=== PATIENT | female | born 1955 | race Caucasian/White ===

== ENCOUNTER 2016-12-16 19:35 | Emergency (ER) | payer BC ==
[2016-12-16 21:49] LABS: Hematocrit 35 % (35-47); Hemoglobin 11.6 g/dl (12.0-16.0); Mean Corpuscular HGB Conc 33 g/dl (31-36); Mean Corpuscular Hemoglobin 29 pg (27-31); Mean Corpuscular Volume 87 fL (80-97); Mean Platelet Volume 9 um3 (7.4-10.4); Red Blood Count 4.01 10^6/ul (4.0-5.4); Red Cell Distribution Width 15 % (10.5-15); White Blood Count 8.5 10^3/ul (3.5-10.8)
[2016-12-16 21:59] LABS: Albumin 4.6 g/dL (3.2-5.2); BUN/Creatinine Ratio 21.6 (8-20); C Reactive Protein 3.97 mg/L (< 5.00); EGFR African American 74.8 (>60); EGFR Non-African American 58.2 (>60); Globulin 2.9 g/dL (2-4); Potassium 3.8 mmol/L (3.5-5.0); Total Protein 7.5 g/dL (6.4-8.9)
[2016-12-16] MEDS ORDERED: Ondansetron INJ* 2 MG/ML VIAL ONE (22:20)
[2016-12-16] MEDS ORDERED: Ondansetron INJ* 2 MG/ML VIAL IV ONE ×2 (22:23→22:24)
[2016-12-16] MEDS ORDERED: NS 0.9% 1000 ML* 2,000 ML IV ONE (22:23)
[2016-12-16] MEDS ORDERED: NS 0.9% 1000 ML* 1,000 ML IV ONE (22:25)
[2016-12-16] MEDS ORDERED: Iodixanol* (CONTRAST) 320 MG/ML 100 ML SDV IV ONE (22:50)
[2016-12-16] MEDS ORDERED: Metoclopramide IV* 5 MG/ML 2 ML VIAL ONE (23:38)
[2016-12-16] MEDS ORDERED: Metoclopramide IV* 5 MG/ML 2 ML VIAL IV ONE (23:39)
[2016-12-16 23:57] LABS: Troponin I 0.01 ng/mL (<0.04)
[2016-12-17 00:03] LABS: Urine Bilirubin Negative (Negative); Urine Glucose 3+(>=500 mg/dL) (Negative); Urine Nitrite Negative (Negative)
[2016-12-17] MEDS ORDERED: NS 0.9% 1000 ML* 1,000 ML IV ONE ×2 (01:51→01:52)
[2016-12-17 03:07] VITALS: BP 117/36
--- NOTE | 2016-12-17 03:53 | ED ---
Irving Agarwal Abhishek, scribed for Venkatesh Montanez on 12/16/16 at 2222 . GI/ HPI - HPI Summary HPI Summary: This patient is a 61 year old F presenting to [facility] accompanied by male with a chief complaint of vomiting since 1999 last night. The CC is described as constant. The patient rates the pain 5/10 in severity. Symptoms aggravated by nothing. Symptoms alleviated by nothing. Patient reports retching, and flatulence. Patient denies diarrhea, and adb pain. PMHx includes DM type 1, CAD , and MA 2 times. SHx includes no alcohol and no smoking. - History of Current Complaint Chief Complaint: EDNauseaVomitDiarrh Time Seen by Provider: 12/16/16 22:03 Stated Complaint: VOMITING Hx Obtained From: Patient Onset/Duration: Started Days Ago - since 20:00 last night Timing: Constant Severity: Moderate Current Severity: Moderate Pain Intensity: 5 Associated Signs and Symptoms: Positive: Vomiting, Other: - Retching and flatulence. Negative: Diarrhea, Abdominal Pain Aggravating Factor(s): Nothing Alleviating Factor(s): Nothing - Allergy/Home Medications Allergies/Adverse Reactions: Allergies Allergy/AdvReac Type Severity Reaction Status Date / Time CALAMARI Allergy Swelling Uncoded 12/16/16 19:57 ENVIRONMENTAL/SEASONAL Allergy STUFFINESS Uncoded 12/16/16 19:57 HAYFEVER PMH/Surg Hx/FS Hx/Imm Hx Endocrine/Hematology History: Reports: Hx Diabetes - Type 1, Other Endocrine/ Hematological Disorders - sclerodema Cardiovascular History: Reports: Hx Angina - not recent, Hx Coronary Artery Disease, Hx Hypercholesterolemia, Hx Hypertension, Hx Myocardial Infarction - 2 times, Other Cardiovascular Problems/Disorders - bypass Denies: Hx Congestive Heart Failure, Hx Pacemaker/ICD, Hx Valvular Heart Disease Respiratory History: Denies: Hx Asthma History: Denies: Hx Renal Disease Musculoskeletal History: Reports: Hx Arthritis - GENERALIZED, Hx Back Problems, Other Musculoskeletal History - neurpathy Denies: Hx Osteoporosis Sensory History: Reports: Hx Contacts or Glasses - READING GLASSES, Other Sensory Impairments - dentures Denies: Hx Hearing Aid Opthamlomology History: Reports: Hx Contacts or Glasses - READING GLASSES, Other Sensory Impairments - dentures Neurological History: Reports: Other Neuro Impairments/Disorders - PAIN CLINIC PATIENT Psychiatric History: Reports: Hx Anxiety, Hx Depression Denies: Hx Panic Disorder - Surgical History Surgery Procedure, Year, and Place: CARDIAC STENTS. CARDIAC BYPASS, [place]. 1984 APPEN[place]CTOMY, [place]. BILATERAL BREAST CYST REMOVED, [place], [place]. AGE 3 THYROID CYST REMOVED, [place], [place]. CATARACTS. Lt TRIGGER FINGER. MOLE REMOVED FROM NECK - [place]. AGE 7, LEFT WRIST FRACTUE REPAIR, [place], [place]. 3x c-sections Hx Anesthesia Reactions: No Infectious Disease History: No Infectious Disease History: Denies: Hx Clostridium Difficile, Hx Hepatitis, Hx Human Immunodeficiency Virus (HIV), Hx of Known/Suspected MRSA, Hx Shingles, Hx Tuberculosis, History Other Infectious Disease, Traveled Outside the in Last 30 Days - Family History Known Family History: Positive: Cardiac Disease, Other - Cancer - Social History Alcohol Use: None Alcohol Amount: 3 / week Substance Use Type: Reports: None Smoking Status (MU): Former Smoker Type: Cigarettes Amount Used/How Often: less than a pack a day Length of Time of Smoking/Using Tobacco: 31 Have You Smoked in the Last Year: No Review of Systems Constitutional: Negative Eyes: Negative ENT: Negative Cardiovascular: Negative Respiratory: Negative Positive: Vomiting, Other - retching, and flatulence. Negative: Abdominal Pain , Diarrhea Genitourinary: Negative Musculoskeletal: Negative Skin: Negative Neurological: Negative Psychological: Normal All Other Systems Reviewed And Are Negative: Yes Physical Exam - Summary Physical Exam Summary: Appearance: Well appearing, no pain distress Skin: warm, dry, reflects adequate perfusion Head/face: normal Eyes: EOMI, CRYS ENT: Dry mucous membranes Neck: supple, nontender Respiratory: CTA, breath sounds present Cardiovascular: RRR, pulses symmetrical Abdomen: Diffusive abd tenderness Bowel: present Musculoskeletal: normal, strength/ROM intact Neuro: normal, sensory motor intact, A&Ox3 Triage Information Reviewed: Yes Vital Signs On Initial Exam: Initial Vitals Temp Pulse Resp BP Pulse Ox 97.3 F 116 18 127/63 100 12/16/16 19:54 12/16/16 19:54 12/16/16 19:54 12/16/16 19:54 12/16/16 19:54 Vital Signs Reviewed: Yes Diagnostics - Vital Signs Vital Signs Temp Pulse Resp BP Pulse Ox 12/16/16 19:54 97.3 F 116 18 127/63 100 - Laboratory Lab Results: Lab Results 12/16/16 12/16/16 12/16/16 Range/Units 21:14 21:14 21:14 WBC 8.5 (3.5-10.8) 10^3/ul RBC 4.01 (4.0-5.4) 10^6/ul Hgb 11.6 L (12.0-16.0) g/dl Hct 35 (35-47) % MCV 87 (80-97) fL MCH 29 (27-31) pg MCHC 33 (31-36) g/dl RDW 15 (10.5-15) % Plt Count 284 (150-450) 10^3/ul MPV 9 (7.4-10.4) um3 Neut % (Auto) 79.7 (38-83) % Lymph % (Auto) 13.6 L (25-47) % [place] % (Auto) 4.9 (1-9) % Eos % (Auto) 1.0 (0-6) % Baso % (Auto) 0.8 (0-2) % Absolute Neuts (auto) 6.8 (1.5-7.7) 10^3/ul Absolute Lymphs (auto) 1.2 (1.0-4.8) 10^3/ul Absolute Monos (auto) 0.4 (0-0.8) 10^3/ul Absolute Eos (auto) 0.1 (0-0.6) 10^3/ul Absolute Basos (auto) 0.1 (0-0.2) 10^3/ul Absolute Nucleated RBC 0 10^3/ul Nucleated RBC % 0 Sodium 135 (133-145) mmol/L Potassium 3.8 (3.5-5.0) mmol/L Chloride 99 L (101-111) mmol/L Carbon Dioxide 18 L (22-32) mmol/L Anion Gap 18 H (2-11) mmol/L BUN 21 (6-24) mg/dL Creatinine 0.97 H (0.51-0.95) mg/dL Est GFR ( Amer) 74.8 (>60) Est GFR (Non-Af Amer) 58.2 (>60) BUN/Creatinine Ratio 21.6 H (8-20) Glucose 350 H (70-100) mg/dL Lactic Acid 1.8 (0.5-2.0) mmol/L Calcium 10.0 (8.6-10.3) mg/dL Magnesium 2.0 (1.9-2.7) mg/dL Total Bilirubin 1.00 (0.2-1.0) mg/dL AST 27 (13-39) U/L ALT 30 (7-52) U/L Alkaline Phosphatase 62 (34-104) U/L C-Reactive Protein 3.97 (< 5.00) mg/L Total Protein 7.5 (6.4-8.9) g/dL Albumin 4.6 (3.2-5.2) g/dL Globulin 2.9 (2-4) g/dL Albumin/Globulin Ratio 1.6 (1-3) Lipase 15 (11.0-82.0) U/L Result Diagrams: 12/16/16 21:14 12/16/16 21:14 Lab Statement: Any lab studies that have been ordered have been reviewed, and results considered in the medical decision making process. - Radiology Chest X-ray Radiology Interpretation Completed By: ED Physician - Negative Chext X-ray - CT CT A/P CT Interpretation Completed By: Radiologist - The CT A/P reveals there are mild atelectactic changes at the lung bases. Cholelithiasis gallstone without gallbladder wall thickening or pericholecystic edema to suggest acute cholecystitis. Fatty changes of the liver. The upper abdominal visceral organs are otherwise unremarkable. Tiny umbilical hernia containing fat. There is no bowel distension. The appendix is not visualized although there are no pericecal or right lower quadrant inflammatory changes. No evidence of acute diverticulitis. the pelvic organs are grossly normal. No free air, free fluid or located collections ED physician has reviewed this radiology report and agrees. - EKG 2346 EKG Rhythm: Sinus Tachycardia EKG Interpretation: no new changes from baseline GIGU Course/Dx - Course Course Of Treatment: This patient is a 61 year old F presenting to [facility] accompanied by male with a chief complaint of vomiting since 1999 last night. Patient reports retching, and flatulence. Patient denies diarrhea, and adb pain. CT A/P reveals There are mild atelectactic changes at the lung bases. Cholelithiasis gallstone without gallbladder wall thickening or pericholecystic edema to suggest acute cholecystitis. Fatty changes of the liver. The upper abdominal visceral organs are otherwise unremarkable. Tiny umbilical hernia containing fat. There is no bowel distension. The appendix is not visualized although there are no pericecal or right lower quadrant inflammatory changes. No evidence of acute diverticulitis. the pelvic organs are grossly normal. No free air, free fluid or located collections. An EKG reveals sinus tachycardia and no new changes from baseline. CXR reveals negative findings. Patient will be (discharged) (with follow up from PCP.) Pt is agreeable with this plan. - Diagnoses Differential Diagnoses - Female: Cholelithiasis, Dehydration, Gastroenteritis ( Viral), Renal Calculi Provider Diagnoses: Nausea & vomiting, Gastroparesis, Diabetes mellitus, Gallstone Discharge - Discharge Plan Condition: Stable Disposition: HOME Prescriptions: Metoclopramide TAB* [Reglan TAB*] 5 mg PO Q8H PRN #15 tab MDD 3 PRN Reason: Vomiting Pantoprazole TAB (NF) [Protonix TAB (NF)] 40 mg PO DAILY #30 tab Patient Education Materials: Acute Nausea and Vomiting (ED), Gastroparesis (ED) Referrals: Lc Arguello MD [Primary Care Provider] - (Follow up with PCP within 3 days ) The documentation as recorded by the Irving barba Abhishek accurately reflects the service I personally performed and the decisions made by Lisseth orantes Emmanuel.
--- NOTE | 2016-12-17 07:28 | RAD ---
HISTORY: Vomiting COMPARISONS: November 30, 2007 VIEWS: 1: frontal portable view of the chest at 10:36 PM FINDINGS: LINES AND TUBES: None. CARDIOMEDIASTINAL SILHOUETTE: The cardiomediastinal silhouette is normal for portable technique. PLEURA: The costophrenic angles are sharp. No pleural abnormalities are noted. LUNG PARENCHYMA: The lungs are clear. ABDOMEN: The upper abdomen is clear. There is no subphrenic gas. BONES AND SOFT TISSUES: The patient is status post median sternotomy. IMPRESSION: NO ACTIVE CARDIOPULMONARY DISEASE.
--- NOTE | 2016-12-17 07:33 | RAD ---
CLINICAL HISTORY: Diffuse abdominal pain, diverticulitis, small bowel obstruction COMPARISON: None TECHNIQUE: Multiple contiguous axial CT scans were obtained of the abdomen and pelvis after the administration of intravenous contrast. Coronal and sagittal multiplanar reformations are submitted for review. Oral contrast was administered. Delayed images were obtained through the abdomen and pelvis. FINDINGS: LUNG BASES: The lung bases are clear. LIVER: The liver is normal in shape, size, contour, and attenuation. BILE DUCTS: There is no intrahepatic or extrahepatic biliary dilatation. GALLBLADDER: A small gallstone is noted. There is no pericholecystic inflammatory change. PANCREAS: The pancreas is normal, without mass or ductal dilatation. SPLEEN: Normal in size and appearance. UPPER GI TRACT: Evaluation of the gastrointestinal tract is limited by incomplete gastric distention. There is suggestion of mucosal thickening of the gastric antrum and pylorus, with a questionable ulceration of the ulnar 12 best seen on coronal image 31. SMALL BOWEL AND MESENTERY: The small bowel is normal in contour, course, and caliber. There is no obstruction or dilatation. COLON: The colon is normal in contour, course, caliber. There is no pericolonic inflammatory change. Is not well-visualized. ADRENALS: Normal bilaterally. KIDNEYS: The kidneys are normal in shape, size, contour, and axis. There is no hydronephrosis or nephrolithiasis. BLADDER: The bladder is smooth in contour. PELVIC ORGANS: The uterus and adnexa are grossly normal for technique. AORTA: There is calcific atherosclerotic disease of the abdominal aorta and its branches, without aneurysmal dilatation IVC: Unremarkable LYMPH NODES: There is no lymphadenopathy by size criteria. ABDOMINAL WALL: There is a small fat-containing umbilical hernia. BONES AND SOFT TISSUES: There are mild diffuse degenerative changes. OTHER: None IMPRESSION: 1. CHOLELITHIASIS, WITHOUT CT FINDINGS OF ACUTE CHOLECYSTITIS. 2. QUESTIONABLE UPPER GI MUCOSAL THICKENING, WITH QUESTIONABLE ULCERATION OF THE PYLORIC BULB SUGGESTIVE OF PEPTIC ULCER DISEASE IN THE CORRECT CLINICAL SETTING. RECOMMEND CONSIDERATION OF CORRELATION WITH DIRECT VISUALIZATION IN THE NONACUTE SETTING.
== END 2016-12-17 04:15 | disposition home or self-care (01) ==
LOC: ED 19:35
DX: R11.10 Vomiting, unspecified (principal); K31.84 Gastroparesis; K80.80 Other cholelithiasis without obstruction; E11.9 Type 2 diabetes mellitus without complications; Z87.891 Personal history of nicotine dependence; R11.2 Nausea with vomiting, unspecified
CPT/HCPCS: 36415; 71010; 74177; 80053; 81003; 83605; 83690; 83735; 84484; 85025; 85610; 85730; 86140; 93005; 96374; 96375; 99284; J2405; J2765; Q9967

== ENCOUNTER 2016-12-18 13:37 | Inpatient (IN) | payer BC ==
[2016-12-18] MEDS ORDERED: NS 0.9% 1000 ML* 2,000 ML IV ONE (16:40)
[2016-12-18 17:08] LABS: Urine Bilirubin Negative (Negative); Urine Glucose 3+(>=500 mg/dL) (Negative); Urine Nitrite Negative (Negative)
[2016-12-18 18:25] LABS: Hematocrit 28 % (35-47); Hemoglobin 9.9 g/dl (12.0-16.0); Mean Corpuscular HGB Conc 35 g/dl (31-36); Mean Corpuscular Hemoglobin 30 pg (27-31); Mean Corpuscular Volume 86 fL (80-97); Mean Platelet Volume 8 um3 (7.4-10.4); Red Cell Distribution Width 15 % (10.5-15); White Blood Count 6.6 10^3/ul (3.5-10.8)
[2016-12-18 18:39] LABS: ALT 23 U/L (7-52); AST 17 U/L (13-39); Albumin 4.1 g/dL (3.2-5.2); Alkaline Phosphatase 51 U/L (34-104); Anion Gap 13 mmol/L (2-11); BUN/Creatinine Ratio 17.6 (8-20); Blood Urea Nitrogen 16 mg/dL (6-24); C Reactive Protein 13.58 mg/L (< 5.00); CO2 Carbon Dioxide 17 mmol/L (22-32); Calcium 9.1 mg/dL (8.6-10.3); Chloride 104 mmol/L (101-111); Creatine Kinase 71 U/L (10-223); EGFR African American 80.6 (>60); EGFR Non-African American 62.6 (>60); Globulin 2.4 g/dL (2-4); Glucose 211 mg/dL (70-100); Magnesium 1.8 mg/dL (1.9-2.7); Potassium 3.6 mmol/L (3.5-5.0); Sodium 134 mmol/L (133-145); Total Protein 6.5 g/dL (6.4-8.9)
[2016-12-18] MEDS ORDERED: Magnesium Oxide TAB* 400 MG PO ONE (18:54)
[2016-12-18] MEDS ORDERED: Ondansetron INJ* 2 MG/ML VIAL IV ONE (18:55)
[2016-12-18] MEDS ORDERED: Melatonin (NF) 3 MG TAB PO PRN (21:22)
[2016-12-18] MEDS ORDERED: Acetaminophen TAB* 325 MG PO PRN (21:22)
[2016-12-18] MEDS ORDERED: Albuterol 2.5 MG/3 ML NEB.SOL* (0.083%) INH PRN (21:22)
[2016-12-18 21:31] LABS: Troponin I 0.01 ng/mL (<0.04)
--- NOTE | 2016-12-18 22:00 | ED ---
Any, Kamla Quinteros, scribed for Venkatesh Montanez on 12/18/16 at 1950 . Progress - Progress Note Progress Note: Pt was signed out by Dr. Alarcon, pending disposition, awaiting CXR and KUB. Re-Evaluation - Re-Evaluation First Eval Re-Evaluation Time: 19:47 Change: Unchanged Comment: She is still nnauseous, weak na dnot feeling well. States she has been unable to eat for a week. Course/Dx - Course Course Of Treatment: Pt was signed out by Dr. Alarcon, pending disposition, awaiting labs. UA negative for UTI. Discussed care of pt with Dr. Vaz, making him aware of the pt. Discussed care of pt with Dr. Vaz again at 2121, accepting pt for admission. Pt's condition is stable and she will be admitted with Dx of dehydration, uncontrolled DM and dehydration. Allergies noted. Elevated BP noted. Pt medications reviewed. - Diagnoses Provider Diagnoses: Uncontrolled diabetes mellitus, Dehydration, Gastroparesis - Provider Notifications Discussed Care Of Patient With: Parrish Vaz Time Discussed With Above Provider: 20:00 Instructed by Provider To: Other - Making him aware of the pt. Discussed care of pt with Dr. Vaz again at 2121, accepting pt for admission. The documentation as recorded by the Neli barba Rebecca accurately reflects the service I personally performed and the decisions made by , Venkatesh Montanez.
--- NOTE | 2016-12-18 22:18 | HP ---
H&P (Free Text) History and Physical: PCP: Angeline Arguello MD Date/Time: 12/18/20162109 CC: malaise, N/V HPI: Mrs Dia is a 61YO IDDM patient diagnosed at age 11YO with other significant HX of CAD, HTN, HLD who reports onset last of N/V of thin yellow fluid, no black or bloody content. She reports generalized achiness and sweats, but no subjective F/C, chest pain, SOB, palpitations, light-headedness, change in bowel/bladder, or other issues. Last emesis was this AM. She has tolerated sipping holley germain throughout the day. She was evaluated in this ED on 12/16, improved after metoclopramide, passed a fluid challenge, and was discharged, but began vomiting again this AM. She used a veterinary urine kit which was reportedly positive for ketones. She called Suzanne Kumar MD on-call for her PCP who advised her be re-evaluated in ED. She is on the edge of DKA as evidenced by an anion gap of 13 and serum CO2 of 17. Her blood sugars at home have been 200-300s during this period. PMedHx CAD/1vCABG/[place] IDDM x50 years HTN HLD spinal stenosis w/ chronic pain GERD Ambulatory Orders Nursing to reconcile. Aspirin [Aspirin EC Low Dose] 81 mg PO DAILY 11/28/12 Atorvastatin* [Lipitor 40 MG*] 40 mg PO BEDTIME 11/28/12 Cholecalciferol [Vitamin D3] 1,000 unit PO DAILY 11/28/12 Insulin Aspart [Novolog Flexpen] 1 unit SUBCUT .PRN SLIDING SCALE PRN 11/28/12 Insulin Glargine [Lantus] 25 unit SUBCUT QAM 11/28/12 Metoprolol Succinate [Metoprolol Succinate ER] 25 mg PO DAILY 11/28/12 Multiple Vitamin [Multivitamins] 1 cap PO DAILY 11/28/12 Quinapril HCl [Accupril] 5 mg PO DAILY 11/28/12 Cetirizine* [ZyrTEC 10 MG TAB*] 10 mg PO DAILY PRN 09/27/[address] CAP* [Cymbalta CAP*] 30 mg PO BID 09/27/16 Gabapentin CAP(*) [Neurontin 300 CAP(*)] 300 mg PO BEDTIME 09/27/16 Glucagon (Rdna) [Glucagon Emergency Kit] 1 mg IJ Q4H PRN 09/27/16 Lactic Acid 12% CREAM (NF) [Lac-Hydrin 12% CREAM (NF)] 1 applic TOPICAL DAILY PRN 09/27/16 Metoclopramide TAB* [Reglan TAB*] 5 mg PO Q8H PRN #15 tab MDD 3 12/17/16 Pantoprazole TAB (NF) [Protonix TAB (NF)] 40 mg PO DAILY #30 tab 12/17/16 Allergies CALAMARI Allergy (Uncoded 12/18/16 14:04) Swelling ENVIRONMENTAL/SEASONAL HAYFEVER Allergy (Uncoded 12/18/16 14:04) STUFFINESS PSurgHx 1vCABG x3 tonsillectomy OU cataract extractions tubal ligation B breast BX (benign) B trigger finger release SocHx: quit smoking 2005, rare alcohol, no recreational drugs; lives with her ; full code status FamHx: Mother passed at 91 of colon CA with schizophrenia. Father passed at 94 of "old age". One sister passed in her 60s of lung CA with schizophrenia and alcoholism. Another sister is healthy. Her brother passed at age 23 of an overdose. ROS: as above, otherwise reviewed and all were negative vitals: Vital Signs Temp 36.4 C 12/18/16 15:41 Pulse 85 12/18/16 21:00 Resp 16 12/18/16 21:00 BP 135/39 12/18/16 21:00 Pulse Ox 99 12/18/16 21:00 Intake & Output 12/17/16 12/18/16 12/18/16 23:59 11:59 23:59 Weight 70.307 kg Constitutional: NAD, normally developed, white female HEENM: atraumatic; sclera/conjunctiva: non-icteric/clear; hearing: clinically intact; oropharynx: clear, mucosa moist Neck: soft tissue: non-tender; thyroid: normal Pulmonary: clear to auscultation bilaterally, good aeration, no accessory muscle use CV: RR/RR, normal S1S2, no carotid bruit, no jugular venous distention, 2+ B DP/ PT, no edema Abdominal: soft, non-distended, non-tender, no rebound/guarding/rigidity, normoactive bowel sounds, no hepatosplenomegaly or masses, no costovertebral angle tenderness Musculoskeletal: general: grossly intact, no palpable tenderness Integumental: normal appearance and texture of exposed skin Psychiatric orientation: AA&O to PPS affect: flat mood: cooperative eye contact: fair content: reliable responses: timely insight: fair to good Testing: Lab Results 12/18/16 12/18/16 12/18/16 Range/Units 16:46 17:55 17:55 WBC 6.6 (3.5-10.8) 10^3/ul RBC 3.30 L (4.0-5.4) 10^6/ul Hgb 9.9 L (12.0-16.0) g/dl Hct 28 L (35-47) % MCV 86 (80-97) fL MCH 30 (27-31) pg MCHC 35 (31-36) g/dl RDW 15 (10.5-15) % Plt Count 222 (150-450) 10^3/ul MPV 8 (7.4-10.4) um3 Neut % (Auto) 73.5 (38-83) % Lymph % (Auto) 18.9 L (25-47) % [place] % (Auto) 6.6 (1-9) % Eos % (Auto) 0.4 (0-6) % Baso % (Auto) 0.6 (0-2) % Absolute Neuts (auto) 4.9 (1.5-7.7) 10^3/ul Absolute Lymphs (auto) 1.3 (1.0-4.8) 10^3/ul Absolute Monos (auto) 0.4 (0-0.8) 10^3/ul Absolute Eos (auto) 0 (0-0.6) 10^3/ul Absolute Basos (auto) 0 (0-0.2) 10^3/ul Absolute Nucleated RBC 0 10^3/ul Nucleated RBC % 0 Sodium 134 (133-145) mmol/L Potassium 3.6 (3.5-5.0) mmol/L Chloride 104 (101-111) mmol/L Carbon Dioxide 17 L (22-32) mmol/L Anion Gap 13 H (2-11) mmol/L BUN 16 (6-24) mg/dL Creatinine 0.91 (0.51-0.95) mg/dL Est GFR ( Amer) 80.6 (>60) Est GFR (Non-Af Amer) 62.6 (>60) BUN/Creatinine Ratio 17.6 (8-20) Glucose 211 H (70-100) mg/dL Lactic Acid (0.5-2.0) mmol/L Calcium 9.1 (8.6-10.3) mg/dL Magnesium 1.8 L (1.9-2.7) mg/dL Total Bilirubin 0.80 (0.2-1.0) mg/dL AST 17 (13-39) U/L ALT 23 (7-52) U/L Alkaline Phosphatase 51 (34-104) U/L Total Creatine Kinase 71 (10-223) U/L Troponin I 0.01 (<0.04) ng/mL C-Reactive Protein 13.58 H (< 5.00) mg/L Total Protein 6.5 (6.4-8.9) g/dL Albumin 4.1 (3.2-5.2) g/dL Globulin 2.4 (2-4) g/dL Albumin/Globulin Ratio 1.7 (1-3) Urine Color Yellow Urine Appearance Clear Urine pH 5.0 (5-9) Ur Specific [place] 1.018 (1.010-1.030) Urine Protein Negative (Negative) Urine Ketones 2+ H (Negative) Urine Blood Negative (Negative) Urine Nitrate Negative (Negative) Urine Bilirubin Negative (Negative) Urine Urobilinogen Negative (Negative) Ur Leukocyte Esterase Negative (Negative) Urine Glucose 3+(>=500 mg/dl) H (Negative) 12/18/16 Range/Units 17:55 WBC (3.5-10.8) 10^3/ul RBC (4.0-5.4) 10^6/ul Hgb (12.0-16.0) g/dl Hct (35-47) % MCV (80-97) fL MCH (27-31) pg MCHC (31-36) g/dl RDW (10.5-15) % Plt Count (150-450) 10^3/ul MPV (7.4-10.4) um3 Neut % (Auto) (38-83) % Lymph % (Auto) (25-47) % [place] % (Auto) (1-9) % Eos % (Auto) (0-6) % Baso % (Auto) (0-2) % Absolute Neuts (auto) (1.5-7.7) 10^3/ul Absolute Lymphs (auto) (1.0-4.8) 10^3/ul Absolute Monos (auto) (0-0.8) 10^3/ul Absolute Eos (auto) (0-0.6) 10^3/ul Absolute Basos (auto) (0-0.2) 10^3/ul Absolute Nucleated RBC 10^3/ul Nucleated RBC % Sodium (133-145) mmol/L Potassium (3.5-5.0) mmol/L Chloride (101-111) mmol/L Carbon Dioxide (22-32) mmol/L Anion Gap (2-11) mmol/L BUN (6-24) mg/dL Creatinine (0.51-0.95) mg/dL Est GFR ( Amer) (>60) Est GFR (Non-Af Amer) (>60) BUN/Creatinine Ratio (8-20) Glucose (70-100) mg/dL Lactic Acid 1.0 (0.5-2.0) mmol/L Calcium (8.6-10.3) mg/dL Magnesium (1.9-2.7) mg/dL Total Bilirubin (0.2-1.0) mg/dL AST (13-39) U/L ALT (7-52) U/L Alkaline Phosphatase (34-104) U/L Total Creatine Kinase (10-223) U/L Troponin I (<0.04) ng/mL C-Reactive Protein (< 5.00) mg/L Total Protein (6.4-8.9) g/dL Albumin (3.2-5.2) g/dL Globulin (2-4) g/dL Albumin/Globulin Ratio (1-3) Urine Color Urine Appearance Urine pH (5-9) Ur Specific [place] (1.010-1.030) Urine Protein (Negative) Urine Ketones (Negative) Urine Blood (Negative) Urine Nitrate (Negative) Urine Bilirubin (Negative) Urine Urobilinogen (Negative) Ur Leukocyte Esterase (Negative) Urine Glucose (Negative) ECG, personally reviewed: NSR rate 84, T-wave inversions V1-3, ST depression V4- 6; similar to comparison 06/17/2008 Impression: 61F HX IDDM x50 years, CAD presents with N/V, malaise, & hyperglycemia since DIAGNOSIS & PLAN Primary N/V & malaise : check rapid influenza : anti-emetics : IVFs : trend labs IDDM : insulin carb ratio diet : basa/bolus/correctional insulin : check A1c : ACHS metoclopramide anemia : 2gm HGB drop over last 48h in setting of receiving 4L IVFs via ED : check stool occult blood, trend H&H : check anemia labs Secondary CAD/1vCABG/[place] : review meds once reconciled. HTN : review meds once reconciled. HLD : review meds once reconciled. spinal stenosis w/ chronic pain : review meds once reconciled. GERD : review meds once reconciled. Admission Rational: observation for likely viral gastroenteritis in setting of long-standing IDDM & borderline DKA DVTp: heparin SQ & SCDs Code Status: full HCP:
[2016-12-18 22:34] LABS: Corrected Retic Count 1.1 % (0.5-1.5); Immature Retic Fraction 0.35
[2016-12-18 22:39] LABS: Iron 48 ug/dL (50-212); Total Iron Binding Capacity 269 mcg/dL (250-450); Transferrin 192 mg/dL (203-362)
[2016-12-18] MEDS: NS 0.9% 1000 ML* 1,000 ML IV SCH (22:55)
[2016-12-18 23:01] LABS: Ferritin 109.3 ng/mL (11-307)
[2016-12-18 23:05] LABS: Folate > 20.00 ng/mL (>3.99)
[2016-12-18 23:06] LABS: Vitamin B12 630 pg/mL (180-914)
[2016-12-19] MEDS: Gabapentin CAP(*) 300 MG PO SCH ×2 (00:10→21:47)
[2016-12-19] MEDS: Atorvastatin* 40 MG TAB PO SCH ×2 (00:11→21:47)
[2016-12-19] MEDS: Metoclopramide TAB* 10 MG PO SCH ×3 (00:11→17:56)
[2016-12-19] MEDS: Heparin VIAL(*) 5000 UNITS/ML VIAL (FIVE THOUSAND) SUBCUT SCH ×3 (06:29→21:48)
[2016-12-19] MEDS: Omeprazole CAP* 20 MG PO SCH (06:29)
[2016-12-19] MEDS: NS 0.9% 1000 ML* 1,000 ML IV SCH ×2 (06:34→15:56)
[2016-12-19] MEDS: Insulin LISPRO* 1 UNITS UNIT SUBCUT SCH ×7 (08:52→21:48)
[2016-12-19] MEDS: DULoxetine DR CAP* 30 MG CAP.DR PO SCH ×2 (08:54→21:47)
[2016-12-19] MEDS: Lisinopril TAB* 5 MG PO SCH (08:54)
[2016-12-19] MEDS: Docusate CAP* 100 MG PO SCH ×2 (08:54→21:47)
[2016-12-19] MEDS: Metoprolol Succinate XL TAB* 25 MG PO SCH (08:54)
[2016-12-19] MEDS: Aspirin EC Low Dose* 81 MG TAB.EC PO SCH (08:55)
[2016-12-19 09:59] LABS: Hematocrit 26 % (35-47); Mean Corpuscular HGB Conc 34 g/dl (31-36); Mean Corpuscular Hemoglobin 29 pg (27-31); Mean Corpuscular Volume 86 fL (80-97); Mean Platelet Volume 8 um3 (7.4-10.4); Red Blood Count 3.07 10^6/ul (4.0-5.4); Red Cell Distribution Width 15 % (10.5-15); White Blood Count 5.3 10^3/ul (3.5-10.8)
[2016-12-19 10:12] LABS: BUN/Creatinine Ratio 12.2 (8-20); Calcium 8.1 mg/dL (8.6-10.3); EGFR African American 102.3 (>60); EGFR Non-African American 79.5 (>60); Potassium 3.4 mmol/L (3.5-5.0)
[2016-12-19] MEDS ORDERED: Magnesium Sulfate 2 GM IV IVPB ONE (11:00)
[2016-12-19] MEDS ORDERED: KCL 20 MEQ/100 ML IVPREMIX* 20 MEQ/100 ML BAG IV ONE ×2 (11:00→15:00)
[2016-12-19] MEDS: Ondansetron INJ* 2 MG/ML VIAL IV PRN ×3 (12:32→22:03)
--- NOTE | 2016-12-19 13:27 | ED ---
Mallika Agarwal Edward, scribed for Rober Alarcon MD on 12/18/16 at 1647 . HPI Diabetic - HPI Summary HPI Summary: 61 y/o female presents to the ED from [facility] c/o N/V an dry heaving for the past three days. The patient began throwing up and couldnt keep food down. PMHx DM, and the pt feels liks she is acidotic. Pt was seen in the ED two days ago. PMHx 2 MIs. Pt has not eaten for 3 days. Per triage note, associated sx: shakiness, body aches. PT SAYS SHE FEELS "AWFUL". PT REFERRED TO ED BY DR MORALES. - History Of Current Complaint Chief Complaint: EDGeneral Time Seen by Provider: 12/18/16 16:15 Hx Obtained From: Patient Onset/Duration: Lasting Days Aggravating: Nothing Alleviating: Nothing Associated Signs & Symptoms: Nausea, Vomiting - Allergies/Home Medications Allergies/Adverse Reactions: Allergies Allergy/AdvReac Type Severity Reaction Status Date / Time CALAMARI Allergy Swelling Uncoded 12/18/16 14:04 ENVIRONMENTAL/SEASONAL Allergy STUFFINESS Uncoded 12/18/16 14:04 HAYFEVER PMH/Surg Hx/FS Hx/Imm Hx Previously Healthy: No Endocrine/Hematology History: Reports: Hx Diabetes - Type 1, Other Endocrine/ Hematological Disorders - sclerodema Cardiovascular History: Reports: Hx Angina - not recent, Hx Coronary Artery Disease, Hx Hypercholesterolemia, Hx Hypertension, Hx Myocardial Infarction - 2 times, Other Cardiovascular Problems/Disorders - bypass Denies: Hx Congestive Heart Failure, Hx Pacemaker/ICD, Hx Valvular Heart Disease Respiratory History: Denies: Hx Asthma History: Denies: Hx Renal Disease Musculoskeletal History: Reports: Hx Arthritis - GENERALIZED, Hx Back Problems, Other Musculoskeletal History - neurpathy Denies: Hx Osteoporosis Sensory History: Reports: Hx Contacts or Glasses - READING GLASSES, Other Sensory Impairments - dentures Denies: Hx Hearing Aid Opthamlomology History: Reports: Hx Contacts or Glasses - READING GLASSES, Other Sensory Impairments - dentures Neurological History: Reports: Other Neuro Impairments/Disorders - PAIN CLINIC PATIENT Psychiatric History: Reports: Hx Anxiety, Hx Depression Denies: Hx Panic Disorder - Surgical History Surgery Procedure, Year, and Place: CARDIAC STENTS. CARDIAC BYPASS, [place]. 1984 APPEN[place]CTOMY, [place]. BILATERAL BREAST CYST REMOVED, [place], [place]. AGE 3 THYROID CYST REMOVED, [place], [place]. CATARACTS. Lt TRIGGER FINGER. MOLE REMOVED FROM NECK - [place]. AGE 7, LEFT WRIST FRACTUE REPAIR, [place], [place]. 3x c-sections Hx Anesthesia Reactions: No Infectious Disease History: No Infectious Disease History: Denies: Hx Clostridium Difficile, Hx Hepatitis, Hx Human Immunodeficiency Virus (HIV), Hx of Known/Suspected MRSA, Hx Shingles, Hx Tuberculosis, History Other Infectious Disease, Traveled Outside the in Last 30 Days - Family History Known Family History: Positive: Cardiac Disease, Other - Cancer - Social History Alcohol Use: None Alcohol Amount: 3 / week Substance Use Type: Reports: None Smoking Status (MU): Former Smoker Type: Cigarettes Amount Used/How Often: less than a pack a day Length of Time of Smoking/Using Tobacco: 31 Have You Smoked in the Last Year: No Review of Systems Constitutional: Other - shakiness, body aches Eyes: Negative ENT: Negative Cardiovascular: Negative Respiratory: Negative Positive: Vomiting, Nausea, Other - dry heaves Genitourinary: Negative Musculoskeletal: Negative Skin: Negative Neurological: Negative Psychological: Normal All Other Systems Reviewed And Are Negative: Yes Physical Exam - Summary Physical Exam Summary: VITAL SIGNS: Reviewed. GENERAL: ~Patient is a well-developed and nourished female who is lying comfortable in the stretcher. ~Patient is not in any acute respiratory distress. HEAD AND FACE: No signs of trauma. ~No ecchymosis, hematomas or skull depressions. No sinus tenderness. EYES: PERRLA, EOMI x 2, No injected conjunctiva, no nystagmus. EARS: Hearing grossly intact. Ear canals and tympanic membranes are within normal limits. MOUTH: Dry oral mucosa. NECK: Supple, trachea is midline, no adenopathy, no JVD, no carotid bruit, no c- spine tenderness, neck with full ROM. CHEST: Symmetric, no tenderness at palpation LUNGS: Clear to auscultation bilaterally. No wheezing or crackles. CVS: Regular rate and rhythm, S1 and S2 present, no murmurs or gallops appreciated. ABDOMEN: Soft, non-tender. No signs of distention. No rebound no guarding, and no masses palpated. Bowel sounds are normal. EXTREMITIES: FROM in all major joints, no edema, no cyanosis or clubbing. NEURO: Alert and oriented x 3. No acute neurological deficits. Speech is normal and follows commands. SKIN: Increased skin turgor. Triage Information Reviewed: Yes Vital Signs On Initial Exam: Initial Vitals Temp Pulse Resp BP Pulse Ox 97.5 F 105 16 141/55 100 12/18/16 14:01 12/18/16 14:01 12/18/16 14:01 12/18/16 14:01 12/18/16 14:01 Vital Signs Reviewed: Yes Diagnostics - Vital Signs Vital Signs Temp Pulse Resp BP Pulse Ox 12/18/16 15:41 97.6 F 103 18 142/62 100 12/18/16 14:01 97.5 F 105 16 141/55 100 - Laboratory Lab Results: Lab Results 12/18/16 12/18/16 12/18/16 Range/Units 16:46 17:55 17:55 WBC 6.6 (3.5-10.8) 10^3/ul RBC 3.30 L (4.0-5.4) 10^6/ul RBC (Retic) 3.30 L (4.6-6.2) 10^6/ul Hgb 9.9 L (12.0-16.0) g/dl Hct 28 L (35-47) % HCT (Retic) 28 L (35-47) % MCV 86 (80-97) fL MCH 30 (27-31) pg MCHC 35 (31-36) g/dl RDW 15 (10.5-15) % Plt Count 222 (150-450) 10^3/ul MPV 8 (7.4-10.4) um3 Neut % (Auto) 73.5 (38-83) % Lymph % (Auto) 18.9 L (25-47) % [place] % (Auto) 6.6 (1-9) % Eos % (Auto) 0.4 (0-6) % Baso % (Auto) 0.6 (0-2) % Absolute Neuts (auto) 4.9 (1.5-7.7) 10^3/ul Absolute Lymphs (auto) 1.3 (1.0-4.8) 10^3/ul Absolute Monos (auto) 0.4 (0-0.8) 10^3/ul Absolute Eos (auto) 0 (0-0.6) 10^3/ul Absolute Basos (auto) 0 (0-0.2) 10^3/ul Absolute Nucleated RBC 0 10^3/ul Nucleated RBC % 0 Retic Count, Calc 1.8 H (0.5-1.5) % Corrected Retic Count 1.1 (0.5-1.5) % Retic Shift Factor 2.0 Retic Production Index 0.60 Immature Retic Fraction 0.35 Mean Retic Volume 108.8 Sodium 134 (133-145) mmol/L Potassium 3.6 (3.5-5.0) mmol/L Chloride 104 (101-111) mmol/L Carbon Dioxide 17 L (22-32) mmol/L Anion Gap 13 H (2-11) mmol/L BUN 16 (6-24) mg/dL Creatinine 0.91 (0.51-0.95) mg/dL Est GFR ( Amer) 80.6 (>60) Est GFR (Non-Af Amer) 62.6 (>60) BUN/Creatinine Ratio 17.6 (8-20) Glucose 211 H (70-100) mg/dL POC Glucose (mg/dL) (70-100) mg/dL Lactic Acid (0.5-2.0) mmol/L Calcium 9.1 (8.6-10.3) mg/dL Magnesium 1.8 L (1.9-2.7) mg/dL Iron 48 L (50-212) ug/dL TIBC 269 (250-450) mcg/dL % Saturation 18 (15-55) % Unsat Iron Binding 221 ug/dL Ferritin 109.3 (11-307) ng/mL Total Bilirubin 0.80 (0.2-1.0) mg/dL AST 17 (13-39) U/L ALT 23 (7-52) U/L Alkaline Phosphatase 51 (34-104) U/L Lactate Dehydrogenase 169 (140-271) U/L Total Creatine Kinase 71 (10-223) U/L Troponin I 0.01 (<0.04) ng/mL C-Reactive Protein 13.58 H (< 5.00) mg/L Total Protein 6.5 (6.4-8.9) g/dL Albumin 4.1 (3.2-5.2) g/dL Globulin 2.4 (2-4) g/dL Albumin/Globulin Ratio 1.7 (1-3) Lipase (11.0-82.0) U/L Vitamin B12 630 (180-914) pg/mL Folate > 20.00 (>3.99) ng/mL Urine Color Yellow Urine Appearance Clear Urine pH 5.0 (5-9) Ur Specific [place] 1.018 (1.010-1.030) Urine Protein Negative (Negative) Urine Ketones 2+ H (Negative) Urine Blood Negative (Negative) Urine Nitrate Negative (Negative) Urine Bilirubin Negative (Negative) Urine Urobilinogen Negative (Negative) Ur Leukocyte Esterase Negative (Negative) Urine Glucose 3+(>=500 mg/dl) H (Negative) Influenza A (Rapid) (Negative) Influenza B (Rapid) (Negative) 12/18/16 12/18/16 12/19/16 Range/Units 17:55 22:41 00:10 WBC (3.5-10.8) 10^3/ul RBC (4.0-5.4) 10^6/ul RBC (Retic) (4.6-6.2) 10^6/ul Hgb (12.0-16.0) g/dl Hct (35-47) % HCT (Retic) (35-47) % MCV (80-97) fL MCH (27-31) pg MCHC (31-36) g/dl RDW (10.5-15) % Plt Count (150-450) 10^3/ul MPV (7.4-10.4) um3 Neut % (Auto) (38-83) % Lymph % (Auto) (25-47) % [place] % (Auto) (1-9) % Eos % (Auto) (0-6) % Baso % (Auto) (0-2) % Absolute Neuts (auto) (1.5-7.7) 10^3/ul Absolute Lymphs (auto) (1.0-4.8) 10^3/ul Absolute Monos (auto) (0-0.8) 10^3/ul Absolute Eos (auto) (0-0.6) 10^3/ul Absolute Basos (auto) (0-0.2) 10^3/ul Absolute Nucleated RBC 10^3/ul Nucleated RBC % Retic Count, Calc (0.5-1.5) % Corrected Retic Count (0.5-1.5) % Retic Shift Factor Retic Production Index Immature Retic Fraction Mean Retic Volume Sodium (133-145) mmol/L Potassium (3.5-5.0) mmol/L Chloride (101-111) mmol/L Carbon Dioxide (22-32) mmol/L Anion Gap (2-11) mmol/L BUN (6-24) mg/dL Creatinine (0.51-0.95) mg/dL Est GFR ( Amer) (>60) Est GFR (Non-Af Amer) (>60) BUN/Creatinine Ratio (8-20) Glucose (70-100) mg/dL POC Glucose (mg/dL) 148 H (70-100) mg/dL Lactic Acid 1.0 (0.5-2.0) mmol/L Calcium (8.6-10.3) mg/dL Magnesium (1.9-2.7) mg/dL Iron (50-212) ug/dL TIBC (250-450) mcg/dL % Saturation (15-55) % Unsat Iron Binding ug/dL Ferritin (11-307) ng/mL Total Bilirubin (0.2-1.0) mg/dL AST (13-39) U/L ALT (7-52) U/L Alkaline Phosphatase (34-104) U/L Lactate Dehydrogenase (140-271) U/L Total Creatine Kinase (10-223) U/L Troponin I (<0.04) ng/mL C-Reactive Protein (< 5.00) mg/L Total Protein (6.4-8.9) g/dL Albumin (3.2-5.2) g/dL Globulin (2-4) g/dL Albumin/Globulin Ratio (1-3) Lipase (11.0-82.0) U/L Vitamin B12 (180-914) pg/mL Folate (>3.99) ng/mL Urine Color Urine Appearance Urine pH (5-9) Ur Specific [place] (1.010-1.030) Urine Protein (Negative) Urine Ketones (Negative) Urine Blood (Negative) Urine Nitrate (Negative) Urine Bilirubin (Negative) Urine Urobilinogen (Negative) Ur Leukocyte Esterase (Negative) Urine Glucose (Negative) Influenza A (Rapid) Negative (Negative) Influenza B (Rapid) Negative (Negative) 12/19/16 12/19/16 12/19/16 Range/Units 05:05 05:05 07:26 WBC TNP (3.5-10.8) 10^3/ul RBC TNP (4.0-5.4) 10^6/ul RBC (Retic) (4.6-6.2) 10^6/ul Hgb TNP (12.0-16.0) g/dl Hct TNP (35-47) % HCT (Retic) (35-47) % MCV TNP (80-97) fL MCH TNP (27-31) pg MCHC TNP (31-36) g/dl RDW TNP (10.5-15) % Plt Count TNP (150-450) 10^3/ul MPV TNP (7.4-10.4) um3 Neut % (Auto) (38-83) % Lymph % (Auto) (25-47) % [place] % (Auto) (1-9) % Eos % (Auto) (0-6) % Baso % (Auto) (0-2) % Absolute Neuts (auto) (1.5-7.7) 10^3/ul Absolute Lymphs (auto) (1.0-4.8) 10^3/ul Absolute Monos (auto) (0-0.8) 10^3/ul Absolute Eos (auto) (0-0.6) 10^3/ul Absolute Basos (auto) (0-0.2) 10^3/ul Absolute Nucleated RBC 10^3/ul Nucleated RBC % Retic Count, Calc (0.5-1.5) % Corrected Retic Count (0.5-1.5) % Retic Shift Factor Retic Production Index Immature Retic Fraction Mean Retic Volume Sodium TNP (133-145) mmol/L Potassium TNP (3.5-5.0) mmol/L Chloride TNP (101-111) mmol/L Carbon Dioxide TNP (22-32) mmol/L Anion Gap TNP (2-11) mmol/L BUN TNP (6-24) mg/dL Creatinine TNP (0.51-0.95) mg/dL Est GFR ( Amer) TNP (>60) Est GFR (Non-Af Amer) TNP (>60) BUN/Creatinine Ratio TNP (8-20) Glucose TNP (70-100) mg/dL POC Glucose (mg/dL) 163 H (70-100) mg/dL Lactic Acid (0.5-2.0) mmol/L Calcium TNP (8.6-10.3) mg/dL Magnesium (1.9-2.7) mg/dL Iron (50-212) ug/dL TIBC (250-450) mcg/dL % Saturation (15-55) % Unsat Iron Binding ug/dL Ferritin (11-307) ng/mL Total Bilirubin (0.2-1.0) mg/dL AST (13-39) U/L ALT (7-52) U/L Alkaline Phosphatase (34-104) U/L Lactate Dehydrogenase (140-271) U/L Total Creatine Kinase (10-223) U/L Troponin I (<0.04) ng/mL C-Reactive Protein (< 5.00) mg/L Total Protein (6.4-8.9) g/dL Albumin (3.2-5.2) g/dL Globulin (2-4) g/dL Albumin/Globulin Ratio (1-3) Lipase (11.0-82.0) U/L Vitamin B12 (180-914) pg/mL Folate (>3.99) ng/mL Urine Color Urine Appearance Urine pH (5-9) Ur Specific [place] (1.010-1.030) Urine Protein (Negative) Urine Ketones (Negative) Urine Blood (Negative) Urine Nitrate (Negative) Urine Bilirubin (Negative) Urine Urobilinogen (Negative) Ur Leukocyte Esterase (Negative) Urine Glucose (Negative) Influenza A (Rapid) (Negative) Influenza B (Rapid) (Negative) 12/19/16 12/19/16 Range/Units 09:38 09:38 WBC 5.3 (3.5-10.8) 10^3/ul RBC 3.07 L (4.0-5.4) 10^6/ul RBC (Retic) (4.6-6.2) 10^6/ul Hgb 9.0 L (12.0-16.0) g/dl Hct 26 L (35-47) % HCT (Retic) (35-47) % MCV 86 (80-97) fL MCH 29 (27-31) pg MCHC 34 (31-36) g/dl RDW 15 (10.5-15) % Plt Count 200 (150-450) 10^3/ul MPV 8 (7.4-10.4) um3 Neut % (Auto) (38-83) % Lymph % (Auto) (25-47) % [place] % (Auto) (1-9) % Eos % (Auto) (0-6) % Baso % (Auto) (0-2) % Absolute Neuts (auto) (1.5-7.7) 10^3/ul Absolute Lymphs (auto) (1.0-4.8) 10^3/ul Absolute Monos (auto) (0-0.8) 10^3/ul Absolute Eos (auto) (0-0.6) 10^3/ul Absolute Basos (auto) (0-0.2) 10^3/ul Absolute Nucleated RBC 10^3/ul Nucleated RBC % Retic Count, Calc (0.5-1.5) % Corrected Retic Count (0.5-1.5) % Retic Shift Factor Retic Production Index Immature Retic Fraction Mean Retic Volume Sodium 137 (133-145) mmol/L Potassium 3.4 L (3.5-5.0) mmol/L Chloride 109 (101-111) mmol/L Carbon Dioxide 19 L (22-32) mmol/L Anion Gap 9 (2-11) mmol/L BUN 9 (6-24) mg/dL Creatinine 0.74 (0.51-0.95) mg/dL Est GFR ( Amer) 102.3 (>60) Est GFR (Non-Af Amer) 79.5 (>60) BUN/Creatinine Ratio 12.2 (8-20) Glucose 155 H (70-100) mg/dL POC Glucose (mg/dL) (70-100) mg/dL Lactic Acid (0.5-2.0) mmol/L Calcium 8.1 L (8.6-10.3) mg/dL Magnesium (1.9-2.7) mg/dL Iron (50-212) ug/dL TIBC (250-450) mcg/dL % Saturation (15-55) % Unsat Iron Binding ug/dL Ferritin (11-307) ng/mL Total Bilirubin (0.2-1.0) mg/dL AST (13-39) U/L ALT (7-52) U/L Alkaline Phosphatase (34-104) U/L Lactate Dehydrogenase (140-271) U/L Total Creatine Kinase (10-223) U/L Troponin I (<0.04) ng/mL C-Reactive Protein (< 5.00) mg/L Total Protein (6.4-8.9) g/dL Albumin (3.2-5.2) g/dL Globulin (2-4) g/dL Albumin/Globulin Ratio (1-3) Lipase 18 (11.0-82.0) U/L Vitamin B12 (180-914) pg/mL Folate (>3.99) ng/mL Urine Color Urine Appearance Urine pH (5-9) Ur Specific [place] (1.010-1.030) Urine Protein (Negative) Urine Ketones (Negative) Urine Blood (Negative) Urine Nitrate (Negative) Urine Bilirubin (Negative) Urine Urobilinogen (Negative) Ur Leukocyte Esterase (Negative) Urine Glucose (Negative) Influenza A (Rapid) (Negative) Influenza B (Rapid) (Negative) Result Diagrams: 12/19/16 09:38 12/19/16 09:38 Lab Statement: Any lab studies that have been ordered have been reviewed, and results considered in the medical decision making process. - Additional Comments Diagnostic Additional Comments: EKG - 17:22 - SR @ [address] ELEVATIONS. T WAVE INVERSIONS IN V2, V3 and ST depressions in V4-V6. Similar to 12/16/16. Diabetic Course/Dx - Course Assessment/Plan: 61 y/o female presents to the ED from [facility] c/o N/V an dry heaving for the past three days. The patient began throwing up and couldnt keep food down. PMHx DM, and the pt feels liks she is acidotic. Pt was seen in the ED two days ago. PMHx 2 MIs. Pt has not eaten for 3 days. Per triage note, associated sx: shakiness, body aches. PT SAYS SHE FEELS "AWFUL". PT REFERRED TO ED BY DR MORALES. EKG - 17:22 - SR @ [address] ELEVATIONS. T WAVE INVERSIONS IN V2, V3 and ST depressions in V4-V6. Similar to 12/16/16. Test results without significant abnormalities except slight anemia. CO2 17, anion gap 13 which are not significantly elevated, and glucose 211. Mg 1.8 for which pt was given PO magnesium. Pt was hydrated with 2 L IV fluids and Zofran for N/V. Pt will be signed out to Dr. Montanez to reevaluate N/V. if she feels better, the pt will be d/c home. However she will stay until she is PO challenged and she is able to tolerate PO without n/v. - Diagnoses Differential Dx: Diabetic Ketoacidosis, Gestational Diabetes, Hyperglycemia, Hyperosmolar State Provider Diagnoses: Uncontrolled diabetes mellitus, Dehydration, Gastroparesis Discharge - Discharge Plan Condition: Stable Disposition: ADMITTED TO [facility] Discharge Disposition Comment: Pt will be signed out to Dr. Montanez pending PO challenge/monitor N/V The documentation as recorded by the Mallika barba Edward accurately reflects the service I personally performed and the decisions made by Dorian orantes Walter, MD.
[2016-12-19] MEDS ORDERED: KCL 20 MEQ/100 ML IVPREMIX* 20 MEQ/100 ML BAG ONE (19:21)
[2016-12-19] MEDS: Insulin GLARGINE(*) 1 UNITS UNIT SUBCUT SCH (21:48)
--- NOTE | 2016-12-19 22:39 | CONS ---
CONSULTATION REPORT: DATE OF CONSULT: 12/19/16 REQUESTING PHYSICIAN: Dr. Escalante. INDICATION: Nausea and vomiting. NARRATIVE: Mrs. Dia is a very pleasant 61-year-old female with a history of type 1 diabetes, who came to the emergency room yesterday with nausea, vomiting , and malaise. In the ED, she did have a CT which showed possible stomach inflammation and possible peptic ulcer disease. This morning, she still continues to feel under the weather. She is still having nausea. She really does not have much of an appetite. She does take an aspirin everyday. She is on a PPI. Denies any black and tarry stools. No unintentional weight loss. No history of EGDs in the past. PAST MEDICAL HISTORY: Significant for coronary artery disease, history of [place] in the past, diabetes x50 years, hypertension, hyperlipidemia, spinal stenosis, GERD. PAST SURGICAL HISTORY: Includes CABG, x3, tonsillectomy, cataracts, tubal ligation, trigger finger release, and a breast biopsy. MEDICATIONS: Upon admission include: 1. Aspirin. 2. Atorvastatin. 3. Insulin. 4. Metoprolol. 5. Multivitamin. 6. Quinapril. 7. Cetirizine. 8. Duloxetine. 9. Gabapentin. 10. Glucagon. 11. Lactic acid. 12. Metoclopramide. 13. Pantoprazole. ALLERGIES: No known drug allergies. FAMILY HISTORY: Significant for colorectal cancer in mother at the age of 91, also schizophrenia, lung cancer, alcoholism. SOCIAL HISTORY: She rarely drinks alcohol. She quit smoking at least a decade ago. REVIEW OF SYSTEMS: Twelve systems were reviewed, other than that mentioned in the HPI were unremarkable. PHYSICAL EXAM: Vital Signs: Temperature is 98.1, blood pressure is 139/53. General: Well-appearing female, lying flat in bed. Alert, oriented, pleasant, fluent. HEENT: Mucous membranes are moist without lesions, ulcers, or exudate. Neck: Supple. Trachea is midline. Head is normocephalic and atraumatic. Heart: Regular rate and rhythm. Lungs: Clear to auscultation. Abdomen: Positive bowel sounds, soft. Slight epigastric tenderness. No rebound. No guarding. No masses were felt. Skin: Warm and dry. DIAGNOSTIC STUDIES/LAB DATA: Of note, BUN is 9, creatinine is 0.74, platelets of 200, glucose of 183, white count of 5.3, hemoglobin of 9. She has a CT, which shows possible peptic ulcer disease. ASSESSMENT AND PLAN: This is a very pleasant 61-year-old female with nausea and vomiting, who comes in with a CT showing possible peptic ulcer disease versus gastritis. She could have H. pylori. I think at this point she does need an upper endoscopy for further evaluation. We should also take biopsies for celiac disease given her type 1 diabetes history. [id number]/[facility] #: [id number] [facility]
[2016-12-20] MEDS: NS 0.9% 1000 ML* 1,000 ML IV SCH (04:13)
[2016-12-20] MEDS: Omeprazole CAP* 20 MG PO SCH (05:12)
[2016-12-20] MEDS: Heparin VIAL(*) 5000 UNITS/ML VIAL (FIVE THOUSAND) SUBCUT SCH ×3 (05:27→21:42)
[2016-12-20 06:47] LABS: Hematocrit 26 % (35-47); Hemoglobin 8.9 g/dl (12.0-16.0); Mean Corpuscular HGB Conc 34 g/dl (31-36); Mean Corpuscular Hemoglobin 29 pg (27-31); Mean Corpuscular Volume 85 fL (80-97); Mean Platelet Volume 8 um3 (7.4-10.4); Red Blood Count 3.08 10^6/ul (4.0-5.4); Red Cell Distribution Width 15 % (10.5-15); White Blood Count 4.8 10^3/ul (3.5-10.8)
[2016-12-20 07:01] LABS: Albumin 3.3 g/dL (3.2-5.2); BUN/Creatinine Ratio 8.7 (8-20); C Reactive Protein 9.5 mg/L (< 5.00); Calcium 8.1 mg/dL (8.6-10.3); EGFR African American 110.9 (>60); EGFR Non-African American 86.2 (>60); Globulin 2.2 g/dL (2-4); Magnesium 1.8 mg/dL (1.9-2.7); Potassium 3.6 mmol/L (3.5-5.0); Total Bilirubin 0.5 mg/dL (0.2-1.0); Total Protein 5.5 g/dL (6.4-8.9)
[2016-12-20] MEDS: Ondansetron INJ* 2 MG/ML VIAL IV PRN (07:26)
[2016-12-20] MEDS: Insulin LISPRO* 1 UNITS UNIT SUBCUT SCH ×7 (07:33→21:39)
[2016-12-20] MEDS: Lisinopril TAB* 5 MG PO SCH (09:58)
[2016-12-20] MEDS: Aspirin EC Low Dose* 81 MG TAB.EC PO SCH (09:58)
[2016-12-20] MEDS: DULoxetine DR CAP* 30 MG CAP.DR PO SCH ×2 (09:58→21:36)
[2016-12-20] MEDS: Metoprolol Succinate XL TAB* 25 MG PO SCH (09:58)
[2016-12-20] MEDS: Docusate CAP* 100 MG PO SCH ×2 (10:30→21:38)
[2016-12-20] MEDS ORDERED: Influenza VAC *QUAD* 2017-18* 0.5 ML SYRINGE IM ONE (12:00)
[2016-12-20] MEDS ORDERED: Meperidine SYRINGE* 50 MG/ML ONE (14:07)
[2016-12-20] MEDS ORDERED: Midazolam* 1 MG/ML 10 ML VIAL (10 MG) ONE (14:07)
[2016-12-20] MEDS: Atorvastatin* 40 MG TAB PO SCH (21:36)
[2016-12-20] MEDS: Gabapentin CAP(*) 300 MG PO SCH (21:37)
[2016-12-20] MEDS: Insulin GLARGINE(*) 1 UNITS UNIT SUBCUT SCH (21:38)
[2016-12-21] MEDS: Heparin VIAL(*) 5000 UNITS/ML VIAL (FIVE THOUSAND) SUBCUT SCH (05:15)
[2016-12-21] MEDS: Omeprazole CAP* 20 MG PO SCH (05:15)
[2016-12-21 07:50] LABS: Calcium 8.7 mg/dL (8.6-10.3); EGFR African American 114.7 (>60); EGFR Non-African American 89.2 (>60); Magnesium 1.6 mg/dL (1.9-2.7); Potassium 3.3 mmol/L (3.5-5.0)
[2016-12-21] MEDS: Insulin LISPRO* 1 UNITS UNIT SUBCUT SCH ×2 (07:51→09:26)
[2016-12-21 07:54] VITALS: BP 139/50
[2016-12-21 08:15] LABS: Hematocrit 28 % (35-47); Hemoglobin 9.8 g/dl (12.0-16.0); Mean Corpuscular HGB Conc 35 g/dl (31-36); Mean Corpuscular Hemoglobin 29 pg (27-31); Mean Corpuscular Volume 84 fL (80-97); Mean Platelet Volume 8 um3 (7.4-10.4); Red Blood Count 3.33 10^6/ul (4.0-5.4); Red Cell Distribution Width 15 % (10.5-15); White Blood Count 4.8 10^3/ul (3.5-10.8)
[2016-12-21] MEDS: Lisinopril TAB* 5 MG PO SCH (09:27)
[2016-12-21] MEDS: Aspirin EC Low Dose* 81 MG TAB.EC PO SCH (09:27)
[2016-12-21] MEDS: DULoxetine DR CAP* 30 MG CAP.DR PO SCH (09:27)
[2016-12-21] MEDS: Docusate CAP* 100 MG PO SCH (09:27)
[2016-12-21] MEDS: Metoprolol Succinate XL TAB* 25 MG PO SCH (09:27)
--- NOTE | 2016-12-21 14:30 | PRO ---
DATE: 12/20/16 - ROOM #413 REFERRING PHYSICIAN: Dr. Lc Arguello * PROCEDURE: Upper gastrointestinal endoscopy and CLOtest. INDICATION: This 61-year-old woman with type 1 diabetes, diagnosed at age 11, was admitted on 12/15/16 with repetitive nausea and vomiting. She and her had eaten freshly prepared corn beef sandwiches, about 2 hours later, she began feeling off and then had vomiting and continuous retching. Her was fine. She got admitted, says the retching continued for 2 more days and then yesterday was better, and she had clear liquids (not solid food as had been listed in the record) and then overnight to today, she has been much better. She does not have chronic gastrointestinal problems in general. About once a month, she will take a Zantac. She had an appendectomy at age 30. [place] [address] She is a generally healthy-appearing, middle-aged woman, in no distress. Her lungs are clear and heart sounds are normal. The abdomen is soft and nontender. EGD: Larynx - not seen. Esophagus - easily entered. The mucosa is normal in the upper, mid, and lower esophagus with the EG junction at 40, snug, and without any hiatal hernia or laxity. Stomach - generally normal mucosa in the cardia, fundus, body, and antrum. In retroflexion, some erythema in the fundus consistent with emetogenic changes seen. The antrum and prepyloric area is normal. A CLOtest obtained, mid greater curvature. Duodenum - normal pylorus, bulb, and second through fourth portions. IMPRESSION: 1. Fundal gastritis - emetogenic. 2. Otherwise normal EGD with no sign of pyloric or duodenal bulb abnormality as suggested by the CT. [id number]/[facility] #: [id number] [facility]
[2016-12-22 13:47] LABS: Gamma Globulin 0.7 g/dL (0.6-1.6); Total Protein(PEP) 5.8 g/dL (6.3 - 7.9)
== END 2016-12-21 11:30 | disposition home or self-care (01) | DRG 420 ==
LOC: ED 13:37 → MED 21:09 → OBSVTOIN 12-19 11:00
PROVIDERS: ADMIT Hospitalist; ATTEND Internal Medicine Geriatric Medicine
PROC: 0DB68ZX Excision of Stomach, Via Natural or Artificial Opening Endoscopic, Diagnostic (ICD-10-PCS; principal; 2016-12-20)
DX: E10.10 Type 1 diabetes mellitus with ketoacidosis without coma (principal); E83.42 Hypomagnesemia; I11.9 Hypertensive heart disease without heart failure; K29.70 Gastritis, unspecified, without bleeding; E87.6 Hypokalemia; D64.9 Anemia, unspecified; I25.10 Atherosclerotic heart disease of native coronary artery without angina pectoris; E78.5 Hyperlipidemia, unspecified; M48.00 Spinal stenosis, site unspecified; K21.9 Gastro-esophageal reflux disease without esophagitis; Z79.4 Long term (current) use of insulin; Z95.1 Presence of aortocoronary bypass graft; Z79.82 Long term (current) use of aspirin; Z79.899 Other long term (current) drug therapy; Z91.013 Allergy to seafood; J30.2 Other seasonal allergic rhinitis; Z87.891 Personal history of nicotine dependence; Z80.0 Family history of malignant neoplasm of digestive organs; Z80.1 Family history of malignant neoplasm of trachea, bronchus and lung; Z81.1 Family history of alcohol abuse and dependence; Z81.8 Family history of other mental and behavioral disorders
CPT/HCPCS: 36415; 80048; 80053; 81003; 82270; 82550; 82607; 82728; 82746; 83036; 83540; 83550; 83605; 83615; 83690; 83735; 84155; 84165; 84484; 85025; 85027; 85045; 86140; 87077; 87502; 90686; 93005; 99156; A9270-GY; J1644; J2250; J2310; J2405; J3475; J3480

== ENCOUNTER 2017-01-17 15:06 | Observation (INO) | payer BC ==
[2017-01-17] MEDS ORDERED: Ondansetron INJ* 2 MG/ML VIAL IV ONE (15:57)
[2017-01-17] MEDS ORDERED: NS 0.9% 1000 ML* 1,000 ML IV ONE (15:57)
[2017-01-17] MEDS ORDERED: Pantoprazole IV* 40 MG IV ONE (15:57)
[2017-01-17 16:45] LABS: Hematocrit 33 % (35-47); Mean Corpuscular HGB Conc 34 g/dl (31-36); Mean Corpuscular Hemoglobin 29 pg (27-31); Mean Corpuscular Volume 87 fL (80-97); Mean Platelet Volume 8 um3 (7.4-10.4); Red Blood Count 3.77 10^6/ul (4.0-5.4); Red Cell Distribution Width 14 % (10.5-15); White Blood Count 9.7 10^3/ul (3.5-10.8)
[2017-01-17 17:00] LABS: Albumin 4.5 g/dL (3.2-5.2); BUN/Creatinine Ratio 18.4 (8-20); C Reactive Protein 4.93 mg/L (< 5.00); Calcium 9.6 mg/dL (8.6-10.3); EGFR Non-African American 57.5 (>60); Globulin 2.6 g/dL (2-4); Potassium 4.2 mmol/L (3.5-5.0); Total Bilirubin 0.8 mg/dL (0.2-1.0); Total Protein 7.1 g/dL (6.4-8.9)
[2017-01-17] MEDS ORDERED: Insulin REGULAR(*) 1 UNITS UNIT IV PUSH ONE (17:05)
[2017-01-17 17:43] LABS: PCO2 Arterial 33 mmHg (35-45)
[2017-01-17 18:05] LABS: Urine Bilirubin Negative (Negative); Urine Glucose 3+(>=500 mg/dL) (Negative); Urine Nitrite Negative (Negative)
[2017-01-17] MEDS ORDERED: PROCHLORPERAZINE INJ 5 MG/ML 2 ML VIAL IV STA (18:15)
[2017-01-17] MEDS ORDERED: PROCHLORPERAZINE INJ 5 MG/ML 2 ML VIAL IV PRN (19:36)
[2017-01-17] MEDS ORDERED: Dextrose 50% Syringe 50 ML* 25 GM/50 ML SYRINGE IV PUSH PRN (19:36)
[2017-01-17] MEDS ORDERED: Ondansetron INJ* 2 MG/ML VIAL IV PRN (19:36)
[2017-01-17] MEDS ORDERED: Acetaminophen TAB* 325 MG PO PRN (19:36)
[2017-01-17] MEDS ORDERED: NS 0.9% 1000 ML* 2,000 ML IV ONE (19:36)
[2017-01-17] MEDS ORDERED: Insulin GLARGINE(*) 1 UNITS UNIT SUBCUT SCH (20:00)
[2017-01-17] MEDS ORDERED: Gabapentin CAP(*) 300 MG PO SCH (21:00)
[2017-01-17 21:27] LABS: BUN/Creatinine Ratio 19.8 (8-20); Calcium 8.2 mg/dL (8.6-10.3); EGFR Non-African American 66.9 (>60); Potassium 3.8 mmol/L (3.5-5.0)
[2017-01-17] MEDS ORDERED: NS 0.9% 1000 ML* 1,000 ML IV SCH (21:35)
[2017-01-17] MEDS: Insulin LISPRO* 1 UNITS UNIT SUBCUT SCH ×2 (21:57→23:41)
[2017-01-17] MEDS: Heparin VIAL(*) 5000 UNITS/ML VIAL (FIVE THOUSAND) SUBCUT SCH (22:00)
[2017-01-17] MEDS: DULoxetine DR CAP* 30 MG CAP.DR PO SCH (22:03)
--- NOTE | 2017-01-17 23:51 | HP ---
CC: Dr. Arguello * HISTORY AND PHYSICAL: DATE OF ADMISSION: 01/17/17 PRIMARY CARE PROVIDER: Dr. Arguello. ATTENDING PHYSICIAN WHILE IN THE HOSPITAL: Jesus Jarrett MD * (report dictated by Zaid Schafer NP). CHIEF COMPLAINT: 1. Nausea. 2. Vomiting. HISTORY OF PRESENT ILLNESS: Mrs. Dia is a 61-year-old female patient. She has a history of CAD, ID, diabetes, hypertension, hyperlipidemia, spinal stenosis, GERD, and history of scleredema. She comes in to the ED today stating that yesterday she drank orange juice and thereafter she has been nauseous ever since she drank it because she had a low blood sugar of 48. She said that she since then was having nausea. She was vomiting. She said she tried eating toast, but anytime she ate or drank anything she vomited. She called the on-call for Dr. Arguello last night, p.o. Zofran was prescribed. She tried taking this, it was not helping her. She was able to get an appointment today with Dr. Arguello's REFUGE MANAGER, Luis Armando Sun, who evaluated the patient and it was noted that her ketones were elevated. She appeared to be dehydrated and there was concern that she was in DKA, so she was sent to the hospital. The patient states that she has not been having any fever or chills. She said that ever since trying to drink that orange juice, she has been vomiting, nauseous, has not been feeling well. She recently was here with similar complaints about 3 weeks ago, was diagnosed with gastritis. She had a GI workup. The patient came back in today, it was noted that she had a slight anion gap. She appeared to be mildly acidotic. Her sugars were in the 300s. She appeared to be dehydrated and there was concern for mild DKA and we were asked to evaluate. She denied having any chest pain. There has been no shortness of breath, no cough, no fevers, no chills and she has been taking her medications. She did not take her Lantus this morning. Because of the laboratory findings, we were asked to evaluate for admission. PAST MEDICAL HISTORY: Significant for: 1. CAD. 2. History of ID. 3. Diabetes, type 1. 4. Hypertension. 5. Hyperlipidemia. 6. Spinal stenosis. 7. GERD. 8. History of scleredema. PAST SURGICAL HISTORY: She has had: 1. CABG. 2. . 3. Tonsillectomy. 4. Cataract extraction. 5. Tubal ligation. 6. Breast biopsy. 7. Appendectomy. 8. Trigger finger release. HOME MEDICATIONS: According to the list that she provided includes: 1. Quinapril 5 mg daily. 2. Zyrtec 10 mg daily. 3. Prevnar, she got that pneumococcal vaccine once already this year. 4. Insulin sliding scale, take as directed. 5. Zofran 4 mg every 6 hours as needed. 6. Insulin aspart 50 units subcu daily. 7. Glucagon 1 mg IM once as needed. 8. Neurontin 300 mg at bedtime. 9. Neurontin 300 mg p.o. daily. 10. Multivitamin 1 tablet daily. 11. Toprol-XL 25 mg p.o. q.p.m. 12. Lac-Hydrin 12% topically daily. 13. Lantus 23 units subcu q.a.m. 14. Cymbalta 30 mg p.o. b.i.d. 15. Vitamin D3, 1000 units p.o. daily. ALLERGIES TO MEDICATIONS: Include no known drug allergies. FAMILY HISTORY: Mother had history of colon cancer and schizophrenia. Father according to her of old age. SOCIAL HISTORY: She is a former smoker. She rarely drinks alcohol. Surrogate decision maker is her . REVIEW OF SYSTEMS: There is no documented fever. She denied having any significant weight change. There was no double vision. She denies having any ear discharge. No rhinorrhea, no sore throat, no thyroid enlargement. Denies having any chest pain. There is no orthopnea. No nocturnal dyspnea. There is no abdominal pain. There was nausea and vomiting. No dysuria, no frequency. There was no seizure. No loss of consciousness, no pruritus and no skin ulceration. Review of 14 systems completed and all others negative. PHYSICAL EXAMINATION GENERAL: At this time, Mrs. Dia is a 61-year-old female patient. She is sitting in the ED stretcher. She does not appear to be in any acute distress. She is well nourished, well developed. VITAL SIGNS: Blood pressure 139/41, pulse of 85, respirations 18, O2 sat 99%, temperature of 98.8. HEENT: Head is atraumatic and normocephalic. Eyes: EOMs are intact. Sclerae anicteric and not pale. Throat: Oral mucosa appears to be dry. No oropharyngeal erythema. NECK: Supple. LUNGS: Clear to auscultation bilaterally. No wheezes, rales, or rhonchi. HEART: Sounds S1, S2. Regular rate and rhythm. She is tachycardic, rate around 100. ABDOMEN: Soft, flat, nontender. Bowel sounds are present. EXTREMITIES: Pulses were 2+ throughout. She had no peripheral edema. She had 5/5 strength. NEUROLOGIC: The patient is awake, alert, oriented x3. Tongue midline. Academic Department Chair were equal. She had no gross focal deficits. SKIN: Intact. LABORATORY DATA: Labs today revealed WBC of 9.7, RBC of 3.77, hemoglobin 11.0 , hematocrit 33, platelet count 258,000. Blood gas showed pH of 7.38, pCO2 of 33, pO2 of 91, bicarb 21. Chemistries: Sodium 135, potassium 4.2, chloride of 101, bicarb of 19, BUN was 18, creatinine of 0.98 which is up from her baseline , glucose 303. Lactate 1.1, calcium 9.6. Total bili 0.8, AST 25, ALT 26, alk phos 56. CRP was 4.9. Albumin 4.5. Amylase and lipase normal. Urine was obtained, showed 2+ ketones, 3+ glucose. Old medical records were reviewed. ASSESSMENT AND PLAN: Mrs. Dia is a 61-year-old female patient coming in to the ER today with complaints of nausea and vomiting in the setting of drinking orange juice yesterday. She will be admitted under observation status for: 1. Diabetic ketoacidosis. The diabetic ketoacidosis here appears to be acidotic on the pH. Her pH is normal but at this point, I do think that she deserves 2 L of fluids wide open. She got one already in the ED with normal saline at 125 an hour. I am going to give her Lantus now. In addition to this, we will put her on insulin every 4 hours for now and we will continue to follow her. 2. Nausea and vomiting. Again, this could be exacerbation of her gastritis. She did take some orange juice; however though, she could have gastroparesis. She may need to have another emptying study. I will defer this to her primary. I have ordered p.r.n. Zofran and Compazine at this point. I will continue to follow. 3. Coronary artery disease. Continue her meds as prescribed. 4. History of diabetes. Again, we are going to put her on every 4 hours fingersticks. 5. Hypertension. Continue meds as prescribed. 6. Hyperlipidemia. Continue meds as prescribed. 7. Spinal stenosis. P.r.n. Tylenol has been made available for pain. 8. Gastroesophageal reflux disease. Continue her current medical management. 9. History of scleredema. She can follow with her primary. 10. DVT prophylaxis. She will be placed on heparin subcu. She is moderate risk. 11. Code status. Full code. 12. Fluids, electrolytes and nutrition. I am putting her on clear liquids for the time being until she is able to tolerate p.o. better. TIME SPENT: On the admission was approximately 60 minutes, greater than half time spent [id number] with the patient obtaining my history and physical, other half of the time was spent going over the plan of care with the patient and implementing plan of care. I did discuss the plan of care with my attending, Dr. Jarrett; he is in agreement. ZAID SCHAFER NP [id number]/[facility] #: [id number] ENRIQUE
[2017-01-18] MEDS: Insulin LISPRO* 1 UNITS UNIT SUBCUT SCH ×2 (02:00→06:32)
[2017-01-18] MEDS: Heparin VIAL(*) 5000 UNITS/ML VIAL (FIVE THOUSAND) SUBCUT SCH ×2 (06:32→14:22)
[2017-01-18 06:55] LABS: Hematocrit 28 % (35-47); Hemoglobin 9.5 g/dl (12.0-16.0); Mean Corpuscular HGB Conc 34 g/dl (31-36); Mean Corpuscular Hemoglobin 30 pg (27-31); Mean Corpuscular Volume 86 fL (80-97); Mean Platelet Volume 8 um3 (7.4-10.4); Red Blood Count 3.21 10^6/ul (4.0-5.4); Red Cell Distribution Width 14 % (10.5-15); White Blood Count 4.8 10^3/ul (3.5-10.8)
[2017-01-18] MEDS ORDERED: Dextrose 50% Syringe 50 ML* 25 GM/50 ML SYRINGE IV PUSH PRN (07:32)
--- NOTE | 2017-01-18 07:49 | PN ---
Subjective - Subjective Reason for Note: Progress Note History: I have reviewed her presentation with the patient and Zaid Schafer NP's admitting history and physical. She was an inpatient 12/19 - 12/21 with similar symptoms of nausea/vomiting and DKA. She was thoroughly evaluated by gastroenterology. She had a negative EGD. It was put down to gastroenteritis. On this occasion she had a headache. She then developed a hypoglycemic episode, she corrected this with OJ and she developed nausea, vomiting and mild DKA. She was dehydrated and after aggressive rehydration/insulin therapy, she is feeling better this morning. She is no longer nauseated and has no anorexia. She denies abdo pain. She has not had a bowel movement, but she anticipates one. I note she was hypoglycemic this morning. Active Problems: Active Problems Diabetic ketoacidosis (Acute) E13.10 Nausea and vomiting (Acute) R11.2 Type 1 diabetes mellitus (Acute) Anemia (Chronic) D64.9 Depression (Chronic) F32.9 Hypercholesterolemia (Chronic) E78.00 Lumbosacral radiculopathy (Chronic) M54.17 Scleredema (Chronic) M34.9 Current Medications: Current Medications Acetaminophen (Tylenol Tab*) 650 mg PO Q4H PRN PRN Reason: FEVER/PAIN Dextrose (D50w Syringe 50 Ml*) 12.5 gm IV PUSH .FOR FS < 60 - SS PRN PRN Reason: FS < 60 Last Admin: 01/18/17 06:29 Dose: 12.5 gm Dextrose (D50w Syringe 50 Ml*) 12.5 gm IV PUSH .FOR FS < 60 - SS PRN PRN Reason: FS < 60 Duloxetine HCl (Cymbalta Cap*) 30 mg PO BID COUNTS INCLUDE 234 BEDS AT THE [facility] Last Admin: 01/17/17 22:03 Dose: 30 mg Gabapentin (Neurontin Cap(*)) 100 mg PO DAILY COUNTS INCLUDE 234 BEDS AT THE [facility] Gabapentin (Neurontin Cap(*)) 300 mg PO BEDTIME COUNTS INCLUDE 234 BEDS AT THE [facility] Last Admin: 01/17/17 22:02 Dose: 300 mg Heparin Sodium (Porcine) (Heparin Vial(*)) 5,000 units SUBCUT Q8HR COUNTS INCLUDE 234 BEDS AT THE [facility] Last Admin: 01/18/17 06:32 Dose: 5,000 units Sodium Chloride (Ns 0.9% 1000 Ml*) 1,000 mls @ 125 mls/hr IV PER RATE COUNTS INCLUDE 234 BEDS AT THE [facility] Stop: 01/19/17 05:34 Last Admin: 01/18/17 00:09 Dose: 125 mls/hr Insulin Glargine (Lantus(*)) 8 units SUBCUT Q24H COUNTS INCLUDE 234 BEDS AT THE [facility] Insulin Human Lispro (Humalog*) 0 units SUBCUT ACHS NGUYEN PRN Reason: Protocol Insulin Human Lispro (Humalog*) 1 units SUBCUT ACHS NGUYEN PRN Reason: Protocol Metoprolol Succinate (Toprol Xl Tab*) 25 mg PO QAM COUNTS INCLUDE 234 BEDS AT THE [facility] Multivitamins/Minerals (Theragran/Minerals Tab*) 1 tab PO DAILY COUNTS INCLUDE 234 BEDS AT THE [facility] Ondansetron HCl (Zofran Inj*) 4 mg IV Q6H PRN PRN Reason: NAUSEA - Review of Systems Pulmonary: Negative: Cough, Sputum, Respiratory Distress Cardiology: Negative: Chest Pain, Shortness of Breath, Palpitations, Swelling of Ankles Gastroenterology: Positive: Nausea, Vomiting Negative: Abdominal Pain, Anorexia, 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, Change in Bowel Habits Genital - Urinary: Negative: Dysuria Home Medications: Home Medications Medication Instructions Recorded Confirmed Type Insulin Glargine [Lantus] 23 unit SUBCUT QAM 11/28/12 01/17/[address] CAP* [Cymbalta CAP*] 30 mg PO BID 09/27/16 01/17/17 History Gabapentin CAP(*) [Neurontin 300 300 mg PO BEDTIME 09/27/16 01/17/17 History CAP(*)] Glucagon (Rdna) [Glucagon 1 mg INJ ONCE PRN 09/27/16 01/17/17 History Emergency Kit] Cetirizine* [ZyrTEC 10 MG TAB*] 10 mg PO DAILY 01/17/17 01/17/17 History Cholecalciferol [Vitamin D3] 1,000 unit PO DAILY 01/17/17 01/17/17 History Gabapentin CAP(*) [Neurontin 100 100 - 300 mg PO DAILY 01/17/17 01/17/17 History mg CAP(*)] Insulin Aspart [Novolog Flexpen] 0 - 30 unit SUBCUT DAILY PRN 01/17/17 01/17/17 History Insulin Aspart [Novolog Flexpen] 50 units SUBCUT DAILY 01/17/17 01/17/17 History Lactic Acid CR 12% (NF) 12 % TOPICAL DAILY 01/17/17 01/17/17 History [Lac-Hydrin 12% (NF)] Metoprolol Succinate XL TAB* 25 mg PO QAM 01/17/17 01/17/17 History [Toprol XL TAB*] Multivitamins/Minerals TAB* 1 tab PO DAILY 01/17/17 01/17/17 History [Theragran/minerals TAB*] Ondansetron ODT TAB* [Zofran 4 MG 4 mg PO Q6H PRN 01/17/17 01/17/17 History Odt TAB*] Pneumococcal 13-Valent Conj 0.5 ml IM ONCE 01/17/17 01/17/17 History [Prevnar 13] Quinapril (NF) [Accupril (NF)] 5 mg PO DAILY 01/17/17 01/17/17 History Allergies: Allergies Allergy/AdvReac Type Severity Reaction Status Date / Time CALAMARI Allergy Swelling Uncoded 12/18/16 14:04 ENVIRONMENTAL/SEASONAL Allergy STUFFINESS Uncoded 12/18/16 14:04 HAYFEVER Objective - Vital Signs Vital Signs: Vital Signs 01/17/17 01/17/17 01/17/17 21:23 22:02 23:14 Temperature 97.9 F 97.8 F Pulse Rate 79 89 Respiratory 16 16 18 Rate Blood Pressure 123/46 116/48 (mmHg) O2 Sat by Pulse 100 100 Oximetry 01/18/17 01/18/17 01/18/17 00:02 03:12 07:17 Temperature 98.4 F 98.4 F Pulse Rate 74 74 Respiratory 18 16 16 Rate Blood Pressure 121/42 130/50 (mmHg) O2 Sat by Pulse 100 99 Oximetry - Intake and Output Intake and Output: Intake & Output 01/15/17 01/16/17 01/17/17 01/18/17 11:59 11:59 11:59 11:59 Intake Total 0 Balance 0 Weight 156 lb 14.4 oz Intake: Oral 0 Intake and Output Start: 01/17/17 19: 56 Freq: DAILY@0600,1400,2200 Status: Active Protocol: Document 01/17/17 22:00 [id number] (Rec: 01/17/17 22:44 [id number]) Document 01/18/17 05:43 [id number] (Rec: 01/18/17 05:44 [id number]) - Physical Exam General: No Cyanosis, No Anemia, No Jaundice, No Clubbing Skin: Normal: Rash Lungs and Chest: Yes: Chest Expansion Full, Chest Expansion Symetrica, Percussion Note Resonant, Vessicular Breath Sounds. No: Crackles, Wheezes Heart Rate and Rhythm: Regular JVP: Not Elevated Additional Cardiovascular: Yes: Normal Heart Sounds. No: Heart Murmur, Pedal Edema Abdominal Exam: Yes: Soft, Bowel Sounds Present. No: Distention, Abdominal Mass , Abdominal Tenderness, Rebound Tenderness - Extremities Cranial Nerves II-XII Intact: Yes Limbs: Normal Power - Neuro Orientation: A/O x3 Speech: Normal Results - Results Lab Results: Laboratory Results - last 24 hr 01/17/17 01/17/17 01/18/17 20:52 21:39 02:01 WBC RBC Hgb Hct MCV MCH MCHC RDW Plt Count MPV Neut % (Auto) Lymph % (Auto) [place] % (Auto) Eos % (Auto) Baso % (Auto) Absolute Neuts (auto) Absolute Lymphs (auto) Absolute Monos (auto) Absolute Eos (auto) Absolute Basos (auto) Absolute Nucleated RBC Nucleated RBC % INR (Anticoag Therapy) Sodium 138 Potassium 3.8 Chloride 107 Carbon Dioxide 21 L Anion Gap 10 BUN 17 Creatinine 0.86 Est GFR ( Amer) 86.0 Est GFR (Non-Af Amer) 66.9 BUN/Creatinine Ratio 19.8 Glucose 205 H POC Glucose (mg/dL) 212 H 91 Calcium 8.2 L 01/18/17 01/18/17 01/18/17 06:10 06:16 06:37 WBC 4.8 RBC 3.21 L Hgb 9.5 L Hct 28 L MCV 86 MCH 30 MCHC 34 RDW 14 Plt Count 205 MPV 8 Neut % (Auto) 62.2 Lymph % (Auto) 26.8 [place] % (Auto) 7.3 Eos % (Auto) 2.7 Baso % (Auto) 1.0 Absolute Neuts (auto) 3.0 Absolute Lymphs (auto) 1.3 Absolute Monos (auto) 0.4 Absolute Eos (auto) 0.1 Absolute Basos (auto) 0 Absolute Nucleated RBC 0 Nucleated RBC % 0.1 INR (Anticoag Therapy) Sodium Potassium Chloride Carbon Dioxide Anion Gap BUN Creatinine Est GFR ( Amer) Est GFR (Non-Af Amer) BUN/Creatinine Ratio Glucose POC Glucose (mg/dL) 53 L 47 L Calcium 01/18/17 01/18/17 06:37 06:56 WBC RBC Hgb Hct MCV MCH MCHC RDW Plt Count MPV Neut % (Auto) Lymph % (Auto) [place] % (Auto) Eos % (Auto) Baso % (Auto) Absolute Neuts (auto) Absolute Lymphs (auto) Absolute Monos (auto) Absolute Eos (auto) Absolute Basos (auto) Absolute Nucleated RBC Nucleated RBC % INR (Anticoag Therapy) 0.92 Sodium Potassium Chloride Carbon Dioxide Anion Gap BUN Creatinine Est GFR ( Amer) Est GFR (Non-Af Amer) BUN/Creatinine Ratio Glucose POC Glucose (mg/dL) 124 H Calcium Assessment - Problem List Assessment: Patient Problems Diabetic ketoacidosis (Acute) Nausea and vomiting (Acute) Type 1 diabetes mellitus (Acute) Anemia (Chronic) Depression (Chronic) Hypercholesterolemia (Chronic) Lumbosacral radiculopathy (Chronic) Scleredema (Chronic) Atherosclerotic cardiovascular disease (Chronic) Plan: Diabetic ketoacidosis (Acute)Nausea and vomiting (Acute)Type 1 diabetes mellitus (Acute) The cause of her nausea and vomiting is obscure. She states she has had intolerance of orange juice and usually avoids it. It could be a food allergy and hence she will avoid this in the future. Another possibility is diabetic gastroparesis. I doubt this as she had a normal NM gastric emptying study 04/03/14. She had a headache preceding this nausea - it is possible this is a migraine. I will check an EKG and troponin I to rule out silent myocardial ischemia in a patient with diabetes. I will have her eat b' fast/lunch and if she keeps these down I will discharge her this afternoon Anemia (Chronic) We are evaluating this as an outpatient Depression (Chronic) Her son attributes her nausea and vomiting to stress. Hypercholesterolemia (Chronic) ongoing Lumbosacral radiculopathy (Chronic) ongoing stress - she has had recent steroid epidural shots, but needs to taper her lantus insulin Scleredema (Chronic) chronic comorbidity Atherosclerotic cardiovascular disease (Chronic) She had a stress test that was low risk 09/02/2016 - I will check an EKG/troponin I despite this. I don't think she requires further work up. She is feeling better and this was mild DKA. Hence I think she can go home if she manages to eat and drink. I will evaluate this further as an outpatient. I explained the above to the patient and she agrees with the management plan.
[2017-01-18 08:00] LABS: BUN/Creatinine Ratio 18.7 (8-20); Calcium 8.4 mg/dL (8.6-10.3); EGFR African American 100.7 (>60); EGFR Non-African American 78.3 (>60); Potassium 3.4 mmol/L (3.5-5.0)
[2017-01-18] MEDS ORDERED: Insulin GLARGINE(*) 1 UNITS UNIT SUBCUT SCH (08:00)
[2017-01-18 08:19] LABS: Troponin I 0.01 ng/mL (<0.04)
[2017-01-18] MEDS: DULoxetine DR CAP* 30 MG CAP.DR PO SCH (08:33)
[2017-01-18] MEDS ORDERED: Metoprolol Succinate XL TAB* 25 MG PO SCH (09:00)
[2017-01-18] MEDS ORDERED: Gabapentin CAP(*) 100 MG PO SCH (09:00)
[2017-01-18] MEDS ORDERED: Multivitamins/Minerals TAB PO SCH (09:00)
[2017-01-18] MEDS ORDERED: Insulin LISPRO* 1 UNITS UNIT SUBCUT SCH ×2 (11:30)
[2017-01-18 11:34] VITALS: BP 117/46
== END 2017-01-18 15:30 | disposition home or self-care (01) ==
LOC: ED 15:06 → MEDTELE 19:33
PROVIDERS: ADMIT Internal Medicine; ATTEND Internal Medicine
DX: E10.10 Type 1 diabetes mellitus with ketoacidosis without coma (principal); Z79.4 Long term (current) use of insulin; R11.2 Nausea with vomiting, unspecified; D64.9 Anemia, unspecified; F32.9 Major depressive disorder, single episode, unspecified; E78.00 Pure hypercholesterolemia, unspecified; M54.16 Radiculopathy, lumbar region; M34.9 Systemic sclerosis, unspecified; I25.10 Atherosclerotic heart disease of native coronary artery without angina pectoris; I25.2 Old myocardial infarction; Z79.899 Other long term (current) drug therapy; Z87.891 Personal history of nicotine dependence; R94.31 Abnormal electrocardiogram [ECG] [EKG]
CPT/HCPCS: 36415; 36600; 80048; 80053; 81003; 82150; 82803; 83605; 83690; 84484; 85025; 85610; 86140; 93005; 96361; 96372; 96374; 96375; 99284; A9270-GY; G0378; J0780; J1644; J2405

== ENCOUNTER 2017-02-02 12:06 | Observation (INO) | payer BC ==
[2017-02-02] MEDS ORDERED: Ondansetron INJ* 2 MG/ML VIAL IV ONE (12:57)
[2017-02-02] MEDS ORDERED: NS 0.9% 1000 ML* 1,000 ML IV SCH (13:00)
[2017-02-02] MEDS ORDERED: Metoclopramide IV* 5 MG/ML 2 ML VIAL IV ONE (13:46)
[2017-02-02] MEDS ORDERED: Metoclopramide IV* 5 MG/ML 2 ML VIAL ONE (13:47)
[2017-02-02 13:48] LABS: Hematocrit 32 % (35-47); Hemoglobin 10.7 g/dl (12.0-16.0); Mean Corpuscular HGB Conc 34 g/dl (31-36); Mean Corpuscular Hemoglobin 29 pg (27-31); Mean Corpuscular Volume 86 fL (80-97); Mean Platelet Volume 8 um3 (7.4-10.4); Red Cell Distribution Width 14 % (10.5-15); White Blood Count 8.6 10^3/ul (3.5-10.8)
--- NOTE | 2017-02-02 13:49 | RAD ---
HISTORY: Recurrent nausea and vomiting COMPARISONS: CT dated December 16, 2016 TECHNIQUE: Multiple transverse and longitudinal ultrasound images were obtained of the right upper quadrant of the abdomen using grayscale and color Doppler imaging. FINDINGS: LIVER: The liver is normal in shape, size, contour, and echogenicity. There are no focal parenchymal masses. There is normal hepatopedal flow of the portal vein on Doppler imaging. BILIARY TREE: There is no intrahepatic or extrahepatic biliary dilatation. The common duct measures 0.3 cm. GALLBLADDER: There is a 0.6 cm shadowing calculus of the gallbladder. There is no gallbladder wall thickening, pericholecystic fluid, or sonographic Galdamez sign. PANCREAS: The head of the pancreas is unremarkable. The tail of the pancreas is not well visualized secondary to overlying bowel gas. RIGHT KIDNEY: The right kidney is normal in shape, size, contour, and echogenicity. There is no hydronephrosis or nephrolithiasis. The right kidney measures 9.5 x 4.1 x 4.4 cm. AORTA AND IVC: The aorta and IVC are unremarkable. FLUID: There are no pleural effusions. There is no free fluid within the hepatorenal recess. OTHER FINDINGS: None. IMPRESSION: CHOLELITHIASIS
[2017-02-02 14:04] LABS: Anion Gap 10 mmol/L (2-11); BUN/Creatinine Ratio 24.4 (8-20); Blood Urea Nitrogen 22 mg/dL (6-24); CO2 Carbon Dioxide 22 mmol/L (22-32); Chloride 104 mmol/L (101-111); Glucose 241 mg/dL (70-100); Potassium 4.5 mmol/L (3.5-5.0); Sodium 136 mmol/L (133-145)
[2017-02-02 14:05] LABS: ALT 14 U/L (7-52); AST 15 U/L (13-39); Albumin 4.2 g/dL (3.2-5.2); Alkaline Phosphatase 53 U/L (34-104); Calcium 9.4 mg/dL (8.6-10.3); EGFR African American 81.6 (>60); EGFR Non-African American 63.4 (>60); Globulin 2.6 g/dL (2-4); Lipase < 10 U/L (11.0-82.0); Total Protein 6.8 g/dL (6.4-8.9)
[2017-02-02] MEDS ORDERED: Ondansetron ODT TAB* 4 MG PO PRN (16:07)
[2017-02-02] MEDS ORDERED: Dextrose 50% Syringe 50 ML* 25 GM/50 ML SYRINGE IV PUSH PRN (16:30)
[2017-02-02] MEDS ORDERED: Metoclopramide IV* 5 MG/ML 2 ML VIAL IV PRN (16:32)
[2017-02-02] MEDS ORDERED: Acetaminophen TAB* 325 MG PO PRN (16:32)
[2017-02-02] MEDS: Ondansetron INJ* 2 MG/ML VIAL IV SCH ×2 (17:33→23:47)
[2017-02-02] MEDS: Insulin LISPRO* 1 UNITS UNIT SUBCUT SCH (17:33)
--- NOTE | 2017-02-02 20:29 | HP ---
CC: Dr. Lc Arguello * HISTORY AND PHYSICAL: DATE OF ADMISSION: 02/02/17 PRIMARY CARE PROVIDER: Dr. Lc Arguello ATTENDING PHYSICIAN: Huber Sutherland MD * (dictated by Becky Kwok NP). CHIEF COMPLAINT: Vomiting for 3 days. HISTORY OF PRESENT ILLNESS: Ms. Dia is a 61-year-old female with past medical history significant for coronary artery disease, diabetes mellitus, hypertension, hyperlipidemia, spinal stenosis, GERD and scleredema who presents in the emergency room for her fourth visit in the last 5 weeks for nausea, vomiting and inability to keep any food down. The patient states that she has been unable to keep anything down since Monday. She reports last being hospitalized in the end of December. The patient has been an inpatient from to 12/21/16 with similar symptoms of nausea, vomiting and DKA. She was evaluated by Gastroenterology at that time and had a negative EGD. It was felt that she had a gastroenteritis. The patient was then developing hypoglycemic episodes that she correlated with orange juice and was developing nausea, vomiting and mild DKA. She was again admitted to the hospital after becoming dehydrated for aggressive rehydration and insulin therapy from 01/17/17 to 01/18. The patient was no longer nauseated and was able to be discharged back home. The patient also had been seen prior to her admissions on 01/16/17 in the emergency room for vomiting. The patient denies any fever, chills, chest pain, shortness of breath or diarrhea. She reports some right lower quadrant abdominal discomfort. She feels that her abdominal discomfort is secondary to dry heaves. She denies any urinary symptoms. Due to the patient's persistent vomiting, she presented to the emergency room for further evaluation. While in the emergency room the patient had labs that were unremarkable. She had an EKG that was unremarkable. She had an abdominal ultrasound showing cholelithiasis but no acute cholecystitis. She had no right upper quadrant tenderness. Due to the patient's persistent nausea and vomiting after she received normal saline, Reglan and Zofran in the emergency room, the hospitalists were asked to evaluate the patient for admission. PAST MEDICAL HISTORY: 1. Coronary artery disease. 2. Myocardial infarction. 3. Diabetes mellitus. 4. Hypertension. 5. Hyperlipidemia. 6. Spinal stenosis. 7. GERD. 8. Scleredema. PAST SURGICAL HISTORY: 1. Status post trigger finger release. 2. Status post appendectomy. 3. Status post breast biopsy. 4. Status post tubal ligation. 5. Status post coronary artery bypass graft x1 vessel. 6. Status post section x3. 7. Status post tonsillectomy. 8. Status post bilateral cataract extractions. MEDICATIONS: Home medications include: 1. Lantus 23 units subcutaneous every morning. 2. NovoLog FlexPen 0-30 units subcutaneous daily as needed. 3. Lactic acid CR 12% topical daily. 4. Cymbalta 30 mg oral twice daily. 5. Vitamin D3, 1000 units oral daily. 6. Multivitamin 1 tablet oral daily. 7. Metoprolol succinate 25 mg oral daily. 8. Gabapentin 300 mg oral daily at bedtime. 9. Zofran 4 mg sublingual every 6 hours as needed for nausea. 10. Glucagon emergency kit 1 mg injection as needed for hypoglycemia. 11. Zyrtec 10 mg oral daily. 12. Quinapril 5 mg oral daily. 13. Aspirin 81 mg oral daily. 14. Atorvastatin 40 mg oral daily at bedtime. ALLERGIES: SHELLFISH, SEASONAL ALLERGIES. FAMILY HISTORY: The patient denies any family history of coronary artery disease, diabetes mellitus. The patient's mother had a history of colon cancer and she had a sister who passed from lung cancer. REVIEW OF SYSTEMS: I performed a 14-point review of systems. All the pertinent positives and negatives are mentioned in the history of present illness. The remaining review of systems are negative. PHYSICAL EXAMINATION GENERAL APPEARANCE: The patient is alert, pleasant and appears to be in no acute distress. VITAL SIGNS: Temperature 97.2, heart rate 88, respiratory rate 18, O2 sat 99% on room air, blood pressure 111/44. HEENT: Normocephalic, atraumatic. Pupils are equal and reactive to light. Extraocular movements are intact. RESPIRATORY: There is no accessory muscle use. The lungs are clear to auscultation bilateral. CARDIOVASCULAR: Regular rate and rhythm. S1 and S2 present. There are no murmurs, rubs, or gallops heard. ABDOMEN: Soft, nontender, nondistended. There are bowel sounds present x4. EXTREMITIES: There is no lower extremity edema. DP and PT pulses are 2+ and symmetric. MUSCULOSKELETAL: There is no clubbing or cyanosis noted. The patient exhibits good strength in all extremities. NEUROLOGICAL: The patient is alert and oriented x4. Cranial nerves II through XII are grossly intact. PSYCHOLOGICAL: The patient is calm and cooperative. SKIN: There are no rashes or abnormalities seen. DIAGNOSTIC STUDIES/LABORATORY DATA: Sodium 136, potassium 4.5, chloride 104, CO2 22, BUN 22, creatinine 0.90, glucose 241. White blood cell count 8.6, hemoglobin 10.7, hematocrit 32, platelet count 269,000. EKG shows a sinus rhythm at a rate of 91. No acute signs of ischemia. Diffuse T wave inversions in leads V2 to V4 and T-wave flattening in V5 and V6. Slight ST depression in leads 4 and 5. All similar to previous EKG from 01/18/17. Abdomen ultrasound from today. Radiologist's impression: Cholelithiasis. IMPRESSION: Ms. Dia is a 61-year-old female with past medical history significant for coronary artery disease, diabetes mellitus, hypertension, hyperlipidemia, gastroesophageal reflux disease, scleredema, who presents to the emergency room with complaints of vomiting and inability to keep any fluids in for the last 2 to 3 days. She will be admitted as observation for intractable vomiting. ASSESSMENT/PLAN: 1. Intractable vomiting: The patient has had a negative EGD workup in the past and it was felt that she had had a emetogenic gastritis at that time. She had an abdominal ultrasound showing a cholelithiasis, but no signs of cholecystitis. She has no tenderness at her right upper quadrant. I do not believe this would be causing her nausea and vomiting. I am going to give the patient IV hydration. I am going to place her on around the clock Zofran with as needed Reglan. I am also going to place her on a PPI. If she continues to have vomiting, she may need to be seen again by Gastroenterology. 2. History of coronary artery disease: The patient will be continued on her home metoprolol succinate, aspirin and atorvastatin. 3. Diabetes mellitus: The patient will be continued on her home Lantus. We will place her on glucose checks, a.c. and h.s. with Lispro sliding scale coverage and a consistent carbohydrate diet. The patient will be continued on her Cymbalta and gabapentin for her neuropathy. 4. Hypertension: The patient is currently normotensive. She will be continued on her home quinapril and metoprolol. 5. Scleredema: The patient will follow with her primary care provider. 6. Fluids, electrolytes and nutrition: The patient will be on a consistent carbohydrate diet as tolerated. 9. Code status: Full code. 10. DVT prophylaxis: The patient is at moderate risk, she will have subcu heparin. 11. Disposition: Observation. TIME SPENT: Time for this admission was 60 minutes, greater than half of that time was spent with the patient and her discussing medications, past medical history and the events leading up to her arrival today, and performing the physical examination. The case was then reviewed with the attending, Dr. Sutherland, who agrees with the plan of care. Reviewed by OMAR NEELY 02/07/17 [id number]/[facility] #: [id number] ENRIQUE
[2017-02-02] MEDS: DULoxetine DR CAP* 30 MG CAP.DR PO SCH (21:11)
[2017-02-02] MEDS: Gabapentin CAP(*) 300 MG PO SCH (21:11)
[2017-02-02] MEDS: Atorvastatin* 40 MG TAB PO SCH (22:25)
[2017-02-03] MEDS: Omeprazole CAP* 20 MG PO SCH (05:51)
[2017-02-03] MEDS: Ondansetron INJ* 2 MG/ML VIAL IV SCH ×4 (05:51→23:51)
[2017-02-03 06:21] LABS: Hematocrit 30 % (35-47); Hemoglobin 10.2 g/dl (12.0-16.0); Mean Corpuscular HGB Conc 34 g/dl (31-36); Mean Corpuscular Hemoglobin 29 pg (27-31); Mean Corpuscular Volume 86 fL (80-97); Mean Platelet Volume 8 um3 (7.4-10.4); Red Blood Count 3.47 10^6/ul (4.0-5.4); Red Cell Distribution Width 14 % (10.5-15); White Blood Count 5.9 10^3/ul (3.5-10.8)
[2017-02-03 06:35] LABS: BUN/Creatinine Ratio 18.8 (8-20); Calcium 8.7 mg/dL (8.6-10.3); EGFR African American 93.5 (>60); EGFR Non-African American 72.7 (>60); Potassium 3.4 mmol/L (3.5-5.0)
[2017-02-03 06:53] LABS: Urine Bilirubin Negative (Negative); Urine Glucose Negative (Negative); Urine Nitrite Negative (Negative)
--- NOTE | 2017-02-03 07:36 | PN ---
Subjective - Subjective Reason for Note: Progress Note History: This is the 4th episode of intractable vomiting. On this occasion she tried assiduously to stay at home. She took zofran and watched her glucose carefully. She is not aware of any triggers. Her diabetes was under good control until the vomiting started. Her abdomen hurt from retching and this wasn't the primary problem. I asked about migraine - she has had no prior history. Smells are acute, but no headache, photo or phonophobia or visual scotomata. This morning she has mild nausea - this is controlled. She has no fever or chills. She has had no diarrhea. Current Medications: Current Medications Acetaminophen (Tylenol Tab*) 650 mg PO Q4H PRN PRN Reason: FEVER/PAIN Aspirin (Aspirin Ec Low Dose*) 81 mg PO DAILY [facility] Atorvastatin Calcium (Lipitor*) 40 mg PO BEDTIME [facility] Last Admin: 02/02/17 22:25 Dose: 40 mg Cetirizine HCl (Zyrtec*) 10 mg PO DAILY [facility] PRN Reason: Protocol Dextrose (D50w Syringe 50 Ml*) 12.5 gm IV PUSH .FOR FS < 60 - SS PRN PRN Reason: FS < 60 Duloxetine HCl (Cymbalta Cap*) 30 mg PO BID [facility] Last Admin: 02/02/17 21:11 Dose: 30 mg Gabapentin (Neurontin Cap(*)) 300 mg PO BEDTIME [facility] Last Admin: 02/02/17 21:11 Dose: 300 mg Lactated Ringer's (Lactated Ringers 1000 Ml Bag*) 1,000 mls @ 100 mls/hr IV PER RATE [facility] Last Admin: 02/03/17 03:06 Dose: 100 mls/hr Insulin Glargine (Lantus(*)) 23 units SUBCUT QAM [facility] Insulin Human Lispro (Humalog*) 0 - 5 units SUBCUT AC [facility] PRN Reason: Protocol Last Admin: 02/02/17 17:33 Dose: 1 units Lisinopril (Prinivil Tab*) 5 mg PO DAILY [facility] PRN Reason: Protocol Metoclopramide HCl (Reglan Iv*) 10 mg IV Q6H PRN PRN Reason: NAUSEA/VOMITING Last Admin: 02/02/17 22:27 Dose: 10 mg Metoprolol Succinate (Toprol Xl Tab*) 25 mg PO DAILY [facility] Multivitamins/Minerals (Theragran/Minerals Tab*) 1 tab PO DAILY [facility] Omeprazole (Prilosec Cap*) 20 mg PO DAILY@0600 [facility] Last Admin: 02/03/17 05:51 Dose: 20 mg Ondansetron HCl (Zofran Inj*) 4 mg IV Q6H [facility] Last Admin: 02/03/17 05:51 Dose: 4 mg Home Medications: Home Medications Medication Instructions Recorded Confirmed Type DULoxetine CAP* [Cymbalta CAP*] 30 mg PO BID 09/27/16 02/02/17 History Gabapentin CAP(*) [Neurontin 300 300 mg PO BEDTIME 09/27/16 02/02/17 History CAP(*)] Glucagon (Rdna) [Glucagon 1 mg INJ ONCE PRN 09/27/16 02/02/17 History Emergency Kit] Cetirizine* [ZyrTEC 10 MG TAB*] 10 mg PO DAILY 01/17/17 02/02/17 History Cholecalciferol [Vitamin D3] 1,000 unit PO DAILY 01/17/17 02/02/17 History Insulin Aspart [Novolog Flexpen] 0 - 30 unit SUBCUT DAILY PRN 01/17/17 02/02/17 History Lactic Acid CR 12% (NF) 12 % TOPICAL DAILY 01/17/17 02/02/17 History [Lac-Hydrin 12% (NF)] Metoprolol Succinate XL TAB* 25 mg PO DAILY 01/17/17 02/02/17 History [Toprol XL TAB*] Multivitamins/Minerals TAB* 1 tab PO DAILY 01/17/17 02/02/17 History [Theragran/minerals TAB*] Ondansetron ODT TAB* [Zofran 4 MG 4 mg PO Q6H PRN 01/17/17 02/02/17 History Odt TAB*] Quinapril (NF) [Accupril (NF)] 5 mg PO DAILY 01/17/17 02/02/17 History Aspirin EC Low Dose* [Ecotrin EC 81 mg PO DAILY 02/02/17 02/02/17 History Low Dose 81 MG*] Atorvastatin* [Lipitor*] 40 mg PO DAILY 02/02/17 02/02/17 History Insulin GLARGINE(*) [Lantus(*)] 23 units SUBCUT QAM 02/02/17 02/02/17 History Allergies: Allergies Allergy/AdvReac Type Severity Reaction Status Date / Time CALAMARI Allergy Swelling Uncoded 12/18/16 14:04 ENVIRONMENTAL/SEASONAL Allergy STUFFINESS Uncoded 12/18/16 14:04 HAYFEVER Objective - Vital Signs Vital Signs: Vital Signs 02/02/17 02/02/17 02/02/17 16:55 19:24 19:55 Temperature 98.0 F 98.0 F Pulse Rate 102 64 Respiratory 16 20 18 Rate Blood Pressure 137/53 125/43 (mmHg) O2 Sat by Pulse 100 100 Oximetry 02/02/17 02/02/17 02/02/17 21:11 23:08 23:10 Temperature 98.0 F Pulse Rate 69 Respiratory 18 16 18 Rate Blood Pressure 119/34 (mmHg) O2 Sat by Pulse 100 Oximetry 02/03/17 03:38 Temperature 98.3 F Pulse Rate 75 Respiratory 16 Rate Blood Pressure 112/44 (mmHg) O2 Sat by Pulse 99 Oximetry - Intake and Output Intake and Output: Intake & Output 01/31/17 02/01/17 02/02/17 02/03/17 11:59 11:59 11:59 11:59 Intake Total 1436 Output Total 350 Balance 1086 Weight 152 lb 3.2 oz Intake: IV Fluids 996 Oral 440 Output: Urine 350 Other: Estimated Void Medium # Bowel Movements 0 # Voids 1 ADLs: Meal Record Start: 02/02/17 16: 55 Freq: DAILY@0900,1400,1800 Status: Active Protocol: Created 02/02/17 16:55 System (Rec: 02/02/17 16:55 System [id number]) Document 02/02/17 18:00 [id number] (Rec: 02/02/17 21:02 [id number]) Intake and Output Start: 02/02/17 12: 10 Freq: Status: Active Protocol: Created 02/02/17 12:10 System (Rec: 02/02/17 12:10 System [id number]) Intake and Output Start: 02/02/17 16: 55 Freq: DAILY@0600,1400,2200 Status: Active Protocol: Created 02/02/17 16:55 System (Rec: 02/02/17 16:55 System [id number]) Document 02/02/17 21:02 [id number] (Rec: 02/02/17 21:05 [id number]) Document 02/03/17 03:57 [id number] (Rec: 02/03/17 04:00 [id number]) - Physical Exam General: No Cyanosis, No Anemia, No Jaundice, No Clubbing Skin: Normal: Rash Endocrine: No Central Obesity, No Hirsuitism, No Virilism, No Acromegaly, No Vitiligo, No Flushing, No Acanthosis nigricans, No Violaceious striae, No Ivon Syndrome, No Buccal pigmenatation, No Ledbetter Crease Pigmentation Lungs and Chest: Yes: Chest Expansion Full, Chest Expansion Symetrica, Percussion Note Resonant, Vessicular Breath Sounds. No: Crackles, Wheezes Heart Rate and Rhythm: Regular Additional Cardiovascular: Yes: Normal Heart Sounds. No: Heart Murmur, Pedal Edema Abdominal Exam: Yes: Soft, Bowel Sounds Present. No: Distention, Abdominal Mass , Hepatomegaly, Splenomegaly, Abdominal Tenderness, Guarding, Rebound Tenderness - Extremities Cranial Nerves II-XII Intact: Yes Limbs: Normal Power, Normal Tone - Neuro Orientation: A/O x3 Speech: Normal Results - Results Lab Results: Laboratory Results - last 24 hr 02/02/17 02/02/17 02/03/17 17:04 20:22 06:05 WBC RBC Hgb Hct MCV MCH MCHC RDW Plt Count MPV Neut % (Auto) Lymph % (Auto) Harney % (Auto) Eos % (Auto) Baso % (Auto) Absolute Neuts (auto) Absolute Lymphs (auto) Absolute Monos (auto) Absolute Eos (auto) Absolute Basos (auto) Absolute Nucleated RBC Nucleated RBC % Sodium Potassium Chloride Carbon Dioxide Anion Gap BUN Creatinine Est GFR ( Amer) Est GFR (Non-Af Amer) BUN/Creatinine Ratio Glucose POC Glucose (mg/dL) 179 H 139 H Calcium Urine Color Yellow Urine Appearance Clear Urine pH 5.0 Ur Specific [place] 1.018 Urine Protein Negative Urine Ketones 1+ H Urine Blood Negative Urine Nitrate Negative Urine Bilirubin Negative Urine Urobilinogen Negative Ur Leukocyte Esterase Negative Urine Glucose Negative 02/03/17 02/03/17 06:12 06:12 WBC 5.9 RBC 3.47 L Hgb 10.2 L Hct 30 L MCV 86 MCH 29 MCHC 34 RDW 14 Plt Count 236 MPV 8 Neut % (Auto) 63.3 Lymph % (Auto) 24.8 L Harney % (Auto) 7.9 Eos % (Auto) 2.9 Baso % (Auto) 1.1 Absolute Neuts (auto) 3.8 Absolute Lymphs (auto) 1.5 Absolute Monos (auto) 0.5 Absolute Eos (auto) 0.2 Absolute Basos (auto) 0.1 Absolute Nucleated RBC 0 Nucleated RBC % 0.1 Sodium 139 Potassium 3.4 L Chloride 106 Carbon Dioxide 24 Anion Gap 9 BUN 15 Creatinine 0.80 Est GFR ( Amer) 93.5 Est GFR (Non-Af Amer) 72.7 BUN/Creatinine Ratio 18.8 Glucose 63 L POC Glucose (mg/dL) Calcium 8.7 Urine Color Urine Appearance Urine pH Ur Specific [place] Urine Protein Urine Ketones Urine Blood Urine Nitrate Urine Bilirubin Urine Urobilinogen Ur Leukocyte Esterase Urine Glucose Radiology Results: Patient Name: KIRSTEN MUÑOZ Medical Record#: [id number] Ordering Physician: Esvin Pillai MD Acct.#: [id number] : 1955 Age: 61 Sex: F Location: EMERGENCY DEPARTMENT Exam Date: 02/02/17 1258 ADM Status: REG ER Order Information: US ABDOMEN LIMITED Accession Number: [id number] CPT: 67328 HISTORY: Recurrent nausea and vomiting COMPARISONS: CT dated December 16, 2016 TECHNIQUE: Multiple transverse and longitudinal ultrasound images were obtained of the right upper quadrant of the abdomen using grayscale and color Doppler imaging. FINDINGS: LIVER: The liver is normal in shape, size, contour, and echogenicity. There are no focal parenchymal masses. There is normal hepatopedal flow of the portal vein on Doppler imaging. BILIARY TREE: There is no intrahepatic or extrahepatic biliary dilatation. The common duct measures 0.3 cm. GALLBLADDER: There is a 0.6 cm shadowing calculus of the gallbladder. There is no gallbladder wall thickening, pericholecystic fluid, or sonographic Galdamez sign. PANCREAS: The head of the pancreas is unremarkable. The tail of the pancreas is not well visualized secondary to overlying bowel gas. RIGHT KIDNEY: The right kidney is normal in shape, size, contour, and echogenicity. There is no hydronephrosis or nephrolithiasis. The right kidney measures 9.5 x 4.1 x 4.4 cm. AORTA AND IVC: The aorta and IVC are unremarkable. FLUID: There are no pleural effusions. There is no free fluid within the hepatorenal recess. OTHER FINDINGS: None. IMPRESSION: CHOLELITHIASIS <Electronically signed by Marc Wolfe MD in OV> 02/02/17 1346 Dictated By: Marc Wolfe MD Dictated Date/Time: 02/02/17 1346 Transcribed Date/Time: 02/02/17 1343 Copy to: CC:Lc Arguello MD; Esvin Pillai MD Imaging - [facility] Imaging - [facility] [address] [place] [address] 1 of 2 Assessment - Problem List Assessment: Patient Problems Diabetic ketoacidosis (Acute) Nausea and vomiting (Acute) Type 1 diabetes mellitus (Acute) Anemia (Chronic) Atherosclerotic cardiovascular disease (Chronic) Depression (Chronic) Hypercholesterolemia (Chronic) Lumbosacral radiculopathy (Chronic) Scleredema (Chronic) Plan: Diabetic ketoacidosis (Acute)Nausea and vomiting (Acute) On this occasion the ketosis is mild and she is not acidotic. I think the nausea and vomiting are the primary event. I will ask for a GI consultation. However, I think this is cyclic vomiting. 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 I think this is the trigger. I will progress her diet. She should have IVF containing dextrose. Type 1 diabetes mellitus (Acute) She has good control. Anemia (Chronic) ongoing - working this up as an outpatient Atherosclerotic cardiovascular disease (Chronic) No evidence of ischemia Depression (Chronic) stable Hypercholesterolemia (Chronic) ongoing Lumbosacral radiculopathy (Chronic) not a problem Scleredema (Chronic) secondary diagnosis. I explained the above with the patient and explored the notion of cyclic vomiting. We have previously studied gastroparesis - another possibility. She agrees with the management plan
[2017-02-03] MEDS ORDERED: Dextrose 50% Syringe 50 ML* 25 GM/50 ML SYRINGE IV PUSH PRN (07:40)
[2017-02-03] MEDS: D5W 1/2 NS KCl 20 Meq 1000 ML* 1,000 ML IV SCH ×2 (08:44→19:36)
[2017-02-03] MEDS: Metoprolol Succinate XL TAB* 25 MG PO SCH (08:48)
[2017-02-03] MEDS: Multivitamins/Minerals TAB PO SCH (08:48)
[2017-02-03] MEDS: Insulin GLARGINE(*) 1 UNITS UNIT SUBCUT SCH (08:48)
[2017-02-03] MEDS: Lisinopril TAB* 5 MG PO SCH (08:48)
[2017-02-03] MEDS: DULoxetine DR CAP* 30 MG CAP.DR PO SCH ×2 (08:48→21:18)
[2017-02-03] MEDS: Cetirizine* 10 MG TAB PO SCH (08:48)
[2017-02-03] MEDS: Aspirin EC Low Dose* 81 MG TAB.EC PO SCH (08:48)
[2017-02-03] MEDS: Insulin LISPRO* 1 UNITS UNIT SUBCUT SCH ×5 (09:51→20:34)
[2017-02-03] MEDS ORDERED: Insulin LISPRO* 1 UNITS UNIT SUBCUT SCH (11:30)
[2017-02-03] MEDS: Atorvastatin* 40 MG TAB PO SCH (21:17)
[2017-02-03] MEDS: Gabapentin CAP(*) 300 MG PO SCH (21:17)
--- NOTE | 2017-02-03 23:35 | CONS ---
GASTROENTEROLOGY CONSULT: DATE: 02/03/17 REFERRING PHYSICIAN: Dr. Lc Arguello. REASON FOR CONSULT: Recurring nausea and vomiting episodes 4 to 5 times resulting in ER visits or admissions since late November. HISTORY: This 61-year-old woman, diabetic since age 12 and with only a little bit of leg neuropathy (no retinal or renal disease), had never had chronic nausea or acid peptic problems through the years. Starting in the late December , she began having days affected by profound nausea and then vomiting. She wondered if her blood sugar was too low and she was treating with orange juice. Her blood sugar seemed to be affected by getting steroid injections through the pain clinic, which was started in October. During the late November admission, she had upper endoscopy, which just showed some emetogenic irritation in the fundus. There was no hiatal hernia or peptic esophagitis and the stomach was empty. Since then, she has had a couple of ER presentations and 2 more brief admissions. In the emergency room, both times, her bicarbonate has been in the upper teens and blood sugar in the 300s. There has not been any fever or right upper quadrant pain. CT scan had shown a gallstone. 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 There has been some increased constipation. She attributes possibly to back pain, and her stools which had always been regular, now skipping multiple days and becoming "marbly." PAST MEDICAL HISTORY: 1. Diabetes - age 12. She had an insulin pump for about 5 or 6 months in 2008 , but developed skin thickening and Dr. Hernandez did a biopsy of the left arm, pump was removed. 2. Scleredema - temporarily associated with the insulin pump - see above. 3. Coronary artery disease - myocardial infarction. 4. Spinal stenosis - evaluated by Dr. Lincoln this summer. 5. Status post appendectomy. 6. History of tubal ligation. 7. Coronary artery bypass x1. 8. x3. 9. Status post tonsillectomy. 10. Status post bilateral cataracts. 11. Mild diabetic neuropathy - no history of diabetic renal disease or retinal disease. MEDICATIONS: See reconciliation sheet - new medications within last year are Cymbalta, gabapentin, and she has not been taking any opiates from the pain clinic. FAMILY HISTORY: Her mother had colon cancer in and from it. Her maternal grandfather in his mid 60s of colon cancer. She has had a couple of colonoscopies and is due for one now. REVIEW OF SYSTEMS: No history of fever, rash, syncope, palpitations, rectal bleeding, hematuria, hepatitis, jaundice, diet changes. PHYSICAL EXAM: She is a healthy-appearing older woman, in no overt distress at this time, having eaten her dinner of solid food. HEENT exam shows no icterus. Mucous membranes are normal. She has no adenopathy. Lungs are clear and heart sounds are normal. Breast and pelvic exams deferred. The abdomen has an appendectomy scar. The abdomen is soft, normal bowel sounds, and nontender. Rectal deferred. Extremities show no edema. Peripheral pulses are intact. She is alert and oriented. Gait was not tested. LABORATORY REVIEW: It is noted that during her 2 admissions, her bicarbonate level was in the upper teens but luis to the 23, 24 level before discharge. Her A1c was 9.1 on 12/15/16. IMPRESSION: This 61-year-old longstanding diabetic has had series of admissions with nausea and vomiting. These seemed to be associated with loss of glucose control and rapid fluctuations. The source of this is not clear. She clearly has been under increased stress. The potential for irritable bowel syndrome contributing to this is considered. It is not likely but trying to even out the variations there is reasonable to attempt. She will take some FiberCon or Benefiber daily, potentially double the dose in a week or 10 days and titrate MiraLAX to avoid skipping more than 1 day. It does not seem likely that this is truly cyclic vomiting syndrome as she is not migraineur and onset of that at this age would be unusual. Likewise, she did not have any gastric retention at her endoscopy and diabetic gastroparesis would be unusual without more signs of neuropathy or retinopathy. [id number]/[facility] #: [id number] [facility]
[2017-02-04] MEDS: Omeprazole CAP* 20 MG PO SCH (05:51)
[2017-02-04] MEDS: Ondansetron INJ* 2 MG/ML VIAL IV SCH (05:51)
[2017-02-04] MEDS: D5W 1/2 NS KCl 20 Meq 1000 ML* 1,000 ML IV SCH (05:54)
[2017-02-04 07:35] LABS: BUN/Creatinine Ratio 13.4 (8-20); Calcium 8.4 mg/dL (8.6-10.3); EGFR African American 90.8 (>60); EGFR Non-African American 70.6 (>60); Magnesium 1.7 mg/dL (1.9-2.7); Potassium 4.4 mmol/L (3.5-5.0)
[2017-02-04 07:39] VITALS: BP 112/68
[2017-02-04] MEDS: Lisinopril TAB* 5 MG PO SCH (09:14)
[2017-02-04] MEDS: Cetirizine* 10 MG TAB PO SCH (09:15)
[2017-02-04] MEDS: Multivitamins/Minerals TAB PO SCH (09:15)
[2017-02-04] MEDS: Aspirin EC Low Dose* 81 MG TAB.EC PO SCH (09:15)
[2017-02-04] MEDS: Metoprolol Succinate XL TAB* 25 MG PO SCH (09:15)
[2017-02-04] MEDS: Insulin GLARGINE(*) 1 UNITS UNIT SUBCUT SCH (09:15)
[2017-02-04] MEDS: Insulin LISPRO* 1 UNITS UNIT SUBCUT SCH ×2 (09:15→09:16)
[2017-02-04] MEDS: DULoxetine DR CAP* 30 MG CAP.DR PO SCH (09:15)
--- NOTE | 2017-02-04 10:08 | PN ---
Subjective - Subjective Reason for Note: Discharge Note History: Discharge summary: She is recovered this morning and has kept down breakfast. She feels ready to go home. She has no anorexia, nausea, vomiting or diarrhea. Current Medications: Current Medications Acetaminophen (Tylenol Tab*) 650 mg PO Q4H PRN PRN Reason: FEVER/PAIN Aspirin (Aspirin Ec Low Dose*) 81 mg PO DAILY [facility] Last Admin: 02/04/17 09:15 Dose: 81 mg Atorvastatin Calcium (Lipitor*) 40 mg PO BEDTIME [facility] Last Admin: 02/03/17 21:17 Dose: 40 mg Cetirizine HCl (Zyrtec*) 10 mg PO DAILY [facility] PRN Reason: Protocol Last Admin: 02/04/17 09:15 Dose: 10 mg Dextrose (D50w Syringe 50 Ml*) 12.5 gm IV PUSH .FOR FS < 60 - SS PRN PRN Reason: FS < 60 Dextrose (D50w Syringe 50 Ml*) 12.5 gm IV PUSH .FOR FS < 60 - SS PRN PRN Reason: FS < 60 Duloxetine HCl (Cymbalta Cap*) 30 mg PO BID [facility] Last Admin: 02/04/17 09:15 Dose: 30 mg Gabapentin (Neurontin Cap(*)) 300 mg PO BEDTIME [facility] Last Admin: 02/03/17 21:17 Dose: 300 mg Potassium Chloride/Dextrose (D5w 1/2 Ns Kcl 20 Meq 1000 Ml*) 1,000 mls @ 100 mls/hr IV PER RATE [facility] Last Admin: 02/04/17 05:54 Dose: 100 mls/hr Insulin Glargine (Lantus(*)) 23 units SUBCUT QAM [facility] Last Admin: 02/04/17 09:15 Dose: 23 units Insulin Human Lispro (Humalog*) 0 - 5 units SUBCUT AC [facility] PRN Reason: Protocol Last Admin: 02/04/17 09:15 Dose: 2 units Insulin Human Lispro (Humalog*) 0 units SUBCUT AC [facility] PRN Reason: Protocol Last Admin: 02/04/17 09:16 Dose: 1 unit Lisinopril (Prinivil Tab*) 5 mg PO DAILY [facility] PRN Reason: Protocol Last Admin: 02/04/17 09:14 Dose: 5 mg Metoclopramide HCl (Reglan Iv*) 10 mg IV Q6H PRN PRN Reason: NAUSEA/VOMITING Last Admin: 02/02/17 22:27 Dose: 10 mg Metoprolol Succinate (Toprol Xl Tab*) 25 mg PO DAILY [facility] Last Admin: 02/04/17 09:15 Dose: 25 mg Multivitamins/Minerals (Theragran/Minerals Tab*) 1 tab PO DAILY [facility] Last Admin: 02/04/17 09:15 Dose: 1 tab Omeprazole (Prilosec Cap*) 20 mg PO DAILY@0600 [facility] Last Admin: 02/04/17 05:51 Dose: 20 mg Ondansetron HCl (Zofran Inj*) 4 mg IV Q6H [facility] Last Admin: 02/04/17 05:51 Dose: 4 mg Home Medications: Home Medications Medication Instructions Recorded Confirmed Type DULoxetine DR CAP* [Cymbalta CAP*] 30 mg PO BID 09/27/16 02/02/17 History Gabapentin CAP(*) [Neurontin 300 300 mg PO BEDTIME 09/27/16 02/02/17 History CAP(*)] Glucagon (Rdna) [Glucagon 1 mg INJ ONCE PRN 09/27/16 02/02/17 History Emergency Kit] Cetirizine* [ZyrTEC 10 MG TAB*] 10 mg PO DAILY 01/17/17 02/02/17 History Cholecalciferol [Vitamin D3] 1,000 unit PO DAILY 01/17/17 02/02/17 History Insulin Aspart [Novolog Flexpen] 0 - 30 unit SUBCUT DAILY PRN 01/17/17 02/02/17 History Lactic Acid CR 12% (NF) 12 % TOPICAL DAILY 01/17/17 02/02/17 History [Lac-Hydrin 12% (NF)] Metoprolol Succinate XL TAB* 25 mg PO DAILY 01/17/17 02/02/17 History [Toprol XL TAB*] Multivitamins/Minerals TAB* 1 tab PO DAILY 01/17/17 02/02/17 History [Theragran/minerals TAB*] Ondansetron ODT TAB* [Zofran 4 MG 4 mg PO Q6H PRN 01/17/17 02/02/17 History Odt TAB*] Quinapril (NF) [Accupril (NF)] 5 mg PO DAILY 01/17/17 02/02/17 History Aspirin EC Low Dose* [Ecotrin EC 81 mg PO DAILY 02/02/17 02/02/17 History Low Dose 81 MG*] Atorvastatin* [Lipitor*] 40 mg PO DAILY 02/02/17 02/02/17 History Insulin GLARGINE(*) [Lantus(*)] 23 units SUBCUT QAM 02/02/17 02/02/17 History Allergies: Allergies Allergy/AdvReac Type Severity Reaction Status Date / Time CALAMARI Allergy Swelling Uncoded 12/18/16 14:04 ENVIRONMENTAL/SEASONAL Allergy STUFFINESS Uncoded 12/18/16 14:04 HAYFEVER Objective - Vital Signs Vital Signs: Vital Signs 02/03/17 02/03/17 02/03/17 15:44 21:17 23:27 Temperature 98.0 F 97.7 F Pulse Rate 71 63 Respiratory 16 18 16 Rate Blood Pressure 112/49 98/37 (mmHg) O2 Sat by Pulse 100 100 Oximetry 02/03/17 02/03/17 02/04/17 23:47 23:55 07:39 Temperature 98.2 F Pulse Rate 72 Respiratory 16 20 Rate Blood Pressure 108/42 112/68 (mmHg) O2 Sat by Pulse 99 Oximetry - Intake and Output Intake and Output: Intake & Output 02/01/17 02/02/17 02/03/17 02/04/17 11:59 11:59 11:59 11:59 Intake Total 3580 2810 Output Total 350 0 Balance 3230 2810 Weight 152 lb 3.2 oz Intake: IV Fluids 2550 2400 IV Fluids 990 Lactated Ringers 1554 Oral 1030 410 Output: Urine 350 0 Other: Estimated Void Medium Medium Date of Last Bowel 02/04/17 Movement # Bowel Movements 0 1 Estimated Stool Amount Medium # Voids 1 3 ADLs: Meal Record Start: 02/02/17 16: 55 Freq: DAILY@0900,1400,1800 Status: Active Protocol: Created 02/02/17 16:55 System (Rec: 02/02/17 16:55 System [email or web address]) Document 02/02/17 18:00 [id number] (Rec: 02/02/17 21:02 [id number]) Document 02/03/17 09:00 [id number] (Rec: 02/03/17 10:06 [id number] TELE-C13) Document 02/03/17 14:00 [id number] (Rec: 02/03/17 14:10 [id number] TELE-C13) Document 02/03/17 18:00 [id number] (Rec: 02/03/17 22:27 [id number] TELE-C06) Document 02/04/17 09:00 [id number] (Rec: 02/04/17 09:01 [id number] [id number]) Intake and Output Start: 02/02/17 12: 10 Freq: Status: Active Protocol: Created 02/02/17 12:10 System (Rec: 02/02/17 12:10 System [id number]) Intake and Output Start: 02/02/17 16: 55 Freq: DAILY@0600,1400,2200 Status: Active Protocol: Created 02/02/17 16:55 System (Rec: 02/02/17 16:55 System [email or web address]) Document 02/02/17 21:02 [id number] (Rec: 02/02/17 21:05 [id number] TELE-C13) Document 02/03/17 03:57 [id number] (Rec: 02/03/17 04:00 [id number] TELE-C32) Document 02/03/17 14:00 [id number] (Rec: 02/03/17 14:10 [id number] TELE-C13) Document 02/03/17 22:00 [id number] (Rec: 02/03/17 22:28 [id number] TELE-C06) Document 02/04/17 06:00 [id number] (Rec: 02/04/17 06:20 [id number]) Intake and Output Start: 02/03/17 08: 39 Freq: Status: Active Protocol: Document 02/03/17 08:39 [id number] (Rec: 02/03/17 08:39 [id number] TELE-M07) Created 02/03/17 08:39 [id number] (Rec: 02/03/17 08:39 [id number]) - Physical Exam General: No Cyanosis, No Anemia, No Jaundice, No Clubbing Lungs and Chest: Yes: Chest Expansion Full, Chest Expansion Symetrica, Percussion Note Resonant. No: Respiratory Distress, Use of Accessory Muscles Heart Rate and Rhythm: Regular Additional Cardiovascular: No: Pedal Edema Abdominal Exam: Yes: Soft. No: Distention, Rigidity, Hepatomegaly, Splenomegaly , Abdominal Tenderness, Guarding, Rebound Tenderness Results - Results Lab Results: Laboratory Results - last 24 hr 02/03/17 02/03/17 02/03/17 06:12 12:14 16:50 Sodium 139 Potassium 3.4 L Chloride 106 Carbon Dioxide 24 Anion Gap 9 BUN 15 Creatinine 0.80 Est GFR ( Amer) 93.5 Est GFR (Non-Af Amer) 72.7 BUN/Creatinine Ratio 18.8 Glucose 63 L POC Glucose (mg/dL) 221 H 180 H Calcium 8.7 Magnesium Cortisol 20.21 02/03/17 02/04/17 02/04/17 21:06 06:54 07:33 Sodium 137 Potassium 4.4 Chloride 106 Carbon Dioxide 27 Anion Gap 4 BUN 11 Creatinine 0.82 Est GFR ( Amer) 90.8 Est GFR (Non-Af Amer) 70.6 BUN/Creatinine Ratio 13.4 Glucose 213 H POC Glucose (mg/dL) 110 H 241 H Calcium 8.4 L Magnesium 1.7 L Cortisol Assessment - Problem List Assessment: Patient Problems Diabetic ketoacidosis (Acute) Nausea and vomiting (Acute) Type 1 diabetes mellitus (Acute) Anemia (Chronic) Atherosclerotic cardiovascular disease (Chronic) Depression (Chronic) Hypercholesterolemia (Chronic) Lumbosacral radiculopathy (Chronic) Scleredema (Chronic) Plan: Diabetic ketoacidosis (Acute)Nausea and vomiting (Acute) I reviewed Dr. Avila 's note. We are going to focus on stress reduction and gastrointestinal motility (IBS). She is recovered and ready for discharge. 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 I discussed counseling and outpatient adjustment of her psychopharmacology. I also discussed pro-kinetic agents (metoclopramide/erythromycin)
== END 2017-02-04 11:17 | disposition home or self-care (01) ==
LOC: ED 12:06 → MEDTELE 16:03
PROVIDERS: ADMIT Internal Medicine; ATTEND Internal Medicine
DX: E10.10 Type 1 diabetes mellitus with ketoacidosis without coma (principal); R11.2 Nausea with vomiting, unspecified; D53.9 Nutritional anemia, unspecified; I25.10 Atherosclerotic heart disease of native coronary artery without angina pectoris; F34.1 Dysthymic disorder; E78.00 Pure hypercholesterolemia, unspecified; M54.17 Radiculopathy, lumbosacral region; M34.89 Other systemic sclerosis; I10 Essential (primary) hypertension; K21.9 Gastro-esophageal reflux disease without esophagitis; E78.5 Hyperlipidemia, unspecified; I25.2 Old myocardial infarction; Z79.4 Long term (current) use of insulin
CPT/HCPCS: 36415; 76705; 80048; 80053; 81003; 82533; 83690; 83735; 84484; 85025; 93005; 96374; 96375; 99283; A9270-GY; G0378; J2405; J2765

== ENCOUNTER → 2017-11-21 17:42 | Emergency (ER) | payer OTHER ==
[~2017-11-21 17:42] MED LIST: Al Hydrox/Mg Hydrox/Simet LIQ* 30 ML UDC PO ONE; Levofloxacin TAB* 500 MG PO ONE; Lidocaine 2% VISCOUS* 15 ML UDC PO ONE; Metoclopramide IV* 5 MG/ML 2 ML VIAL IV SLOW PU ONE; NS 0.9% 1000 ML* 1,000 ML IV ONE; Pantoprazole IV* 40 MG IV ONE
--- OUTSIDE RECORDS SUMMARY | 2017-11-21 18:04 | XMS REPORT ---
:1955 External Reference #:[id number] Author Organization [facility] Address [address] [facility] [place] [address] [place] [address] Phone [phone] Care Team Providers Name Role Phone Augustina Kumar MD Primary Care Physician Unavailable Payers Type Date Identification Numbers Payment Provider Subscriber Commercial Effective: Policy Number: BS Chuyita Dia 2011 [id number] Expires: 2016 PayID: [id number] [address] [address] [employer]ig[employer] Part B Effective: 2007 Policy Number: BS Of LAURA Dia [id number] Expires: 2011 Group Number: [id number] [address] [address] PayID: [id number] [place] [address] Medigap Part B Effective: 1998 Policy Number: BS Of LAURA Dia II [id number] Expires: 2007 Group Number: [id number] [address] [address] PayID: [id number] [place] [id number] Medigap Part B Expires: 2016 Policy Number: BS Chuyita Dia [id number] PayID: [id number] [address] [address] Commercial Policy Number: [id number] Иван Dia PayID: [id number] [address] [place] [address] Problems Date Description Provider Status Onset: 03/29/2012 Type 1 diabetes mellitus Ramos Shirley M.D. Active Onset: 03/29/2012 Coronary arteriosclerosis Ramos Shirley M.D. Active Onset: 03/29/2012 Pure hypercholesterolemia Ramos Shirley M.D. Active Onset: 03/29/2012 Old myocardial infarction Ramos Shirley M.D. Active Family History Date Family Member(s) Problem(s) Comments General Heart Disease General Diabetes Type I Father due to Natural Causes () - age 94 Mother due to Colon Cancer () - age 91 Siblings 3 Social History Type Date Description Comments Marital Status Lives With Occupation [employer] Use Denies alcohol use Smoking Patient is a former smoker Recreational Drug Use Denies Drug Use Daily Caffeine Consumes on average 2 cups of regular coffee per day Exercise Type/Frequency Exercises regularly Allergies, Adverse Reactions, Alerts Date Description Reaction Status Severity Comments 01/28/2004 Iodine active swollen eyes 10/26/2017 Shellfish-derived Products active swollen eyes Medications Medication Date Status Form Strength Qnty SIG Indications Ordering Provider Onetouch 10/26/ Active Strips 200uni use up to E10.8 [place] Ultra Blue 2018 ts 6x/day MD Arnaldo Zyrtec 06/16/ Active Capsules 10mg Ramos Allergy 2016 Sheldon Shirley M.D. Multi Vitamin 08/13/ Active Tablets 1 po qd Ramos 2009 Sheldon Shirley M.D. Metoprolol / Active Tablets ER 25mg 1 po qd Ramos Succinate Sheldon Shirley M.D. Lipitor / Active Tablets 40mg 90tabs 1 po hs Unknown 0000 Vitamin D3 / Active Capsules 1000Unit 30caps 1 by mouth Other High Potency 0000 every day Ordering Provider Aspir-81 / Active Tablets DR 81mg 1 by mouth Unknown 0000 every day Duloxetine / Active Caps DR 30mg 1 by mouth Unknown HCL 0000 Part bid Gabapentin / Active Capsules 100mg take 1 cap Unknown 0000 as needed Gabapentin / Active Capsules 300mg 1 by mouth Unknown 0000 at hs prn Clonazepam / Active Tablets 0.5mg 1 tablet Unknown 0000 up to twice dialy, MDD 2 tablets Humalog / Active Solution 100Unit/ML sliding Unknown Kwikpen 0000 Pen-Inject scale Lantus / Active Solution 100Unit/ML inject 23 Unknown Solostar 0000 Pen-Inject units am. max daily dose60 units Omeprazole / Active Capsules DR 20mg 1 by mouth Unknown 0000 every day(pt not taking) Ondansetron / Active Tablets 4mg dissolve Unknown 0000 Dispers one tablet orally every 8 hours as needed for nausea. Quinapril HCL / Active Tablets 5mg 1 tablet Unknown 0000 daily by mouth Simvastatin 08/13/ Hx Tablets 40mg 90tabs 1 po [facility] 2008 - Sheldon Shirley, .DSierra 2011 Citracal + D 08/13/ Hx Tablets 800mg 1 po qd Ramos 2008 - Sheldon Shirley, .DSierra 2013 Vit D 08/13/ Hx 800mg 1 po qd Ramos 2008 Sheldon Shirley M.D. Metoprolol 05/12/ Hx Tablets 25mg 60tabs 1 po bid [facility]artrate 2008 - Sheldon Shirley, .DSierra 2009 Simvastatin 10/04/ Hx Tablets [facility] Sheldon [facility], .DSierra 2007 Wellbutrin XL 10/05/ Hx Tablets ER 300mg 90tabs Once qd Ramos 2006 - 24HR hSeldon Shirley, .DSierra 2007 Aspirin 10/05/ Hx Chewtabs 81mg 1 PO qd Ramos 2006 - Sheldon Shirley, .D. 2015 Vytorin 05/13/ Hx Tablets 10mg;40 mg 30tabs 1 po qd Ramos 2005 - Sheldon Shirley, .DSierra 2008 Vytorin 04/01/ Hx Tablets 10mg;20 mg 30tabs 1 po qd Ramos 2004 - Sheldon Shirley, M.D. 2006 Accupril 01/27/ Hx Tablets 5mg 30tabs 1 po qd Ramos 2003 - hold for Sheldon Shirley, M.D. 2008 10/05/07 Zocor 01/27/ Hx Tablets 10mg 30tabs one qhs Ramos 2003 - Sheldon Shirley, .DSierra 2005 Wellbutrin SR 01/27/ Hx Tablets 150mg 60tabs 1 po qd Ramos 2003 Sheldon Shirley, M.DSierra 2005 Aracelis 01/27/ Hx Tablets 30mg 30tabs prn Ramos 2003 Sheldon Shirley, M.DSierra 2007 Toprol XL 01/27/ Hx Tablets 25mg 30tabs 1 po qd Ramos 2003 Sheldon Shirley, M.DSierra 2008 Lantus / Hx Injection 100Units/M 23 u every Unknown 0000 - L in the 2018 Novolog /00/ Hx Solution 100Unit/ML 1 units Unknown Flexpen 0000 - Pen-Inject per 2 gm [facility] 2017 sc (sliding scale) Accupril / Hx Tablets 5mg 1 po qd Unknown 0000 - 2017 Wellbutrin XL / Hx Tablets ER 150mg 90tabs 1 po qd Unknown 0000 - 24HR 2017 Aspirin Ec / Hx Tablets DR 81mg 90tabs 1 by mouth Ramos 0000 - every day Sheldon Shirley, M.DSierra 2016 Humalog 00/ Hx Solution 100Unit/ML sliding Unknown 0000 - scale 2017 Vital Signs Date Vital Result Comment 10/26/2017 Height 67 inches 5'7" Weight 165.00 lb w/ shoes Heart Rate 71 /min BP Systolic Sitting 119 mmHg BP Diastolic Sitting 60 mmHg BMI (Body Mass Index) 25.8 kg/m2 06/29/2017 Height 67 inches 5'7" Weight 165.00 lb w/o shies Heart Rate 74 /min reg BP Systolic Sitting 124 mmHg Lue BP Diastolic Sitting 64 mmHg Lue Respiratory Rate 16 /min BMI (Body Mass Index) 25.8 kg/m2 Ejection Fraction 45-50% as of 07/13/16 echo 06/16/2016 Height 67 inches 5'7" Weight 164.25 lb with shoes Heart Rate 74 /min BP Systolic Sitting 138 mmHg LA, regular BP Diastolic Sitting 60 mmHg LA, regular BMI (Body Mass Index) 25.7 kg/m2 Ejection Fraction 55% stress test 04/04/06 01/19/2016 Height 67 inches 5'7" Weight 152.00 lb Pain Level 0 BMI (Body Mass Index) 23.8 kg/m2 12/18/2015 Height 67 inches 5'7" Weight 152.00 lb Pain Level 0 BMI (Body Mass Index) 23.8 kg/m2 12/10/2015 Height 67 inches 5'7" Weight 152.00 lb Heart Rate 83 /min BP Systolic 117 mmHg BP Diastolic 64 mmHg BMI (Body Mass Index) 23.8 kg/m2 05/29/2013 Height 66 inches 5'6" Weight 147.00 lb Heart Rate 72 /min BP Systolic Sitting 110 mmHg BP Diastolic Sitting 54 mmHg BMI (Body Mass Index) 23.7 kg/m2 03/29/2012 Height 66 inches 5'6" Weight 148.00 lb Heart Rate 68 /min BP Systolic 116 mmHg BP Diastolic 62 mmHg BMI (Body Mass Index) 23.9 kg/m2 03/30/2011 Height 66 inches 5'6" Weight 144.00 lb Heart Rate 76 /min BP Systolic 150 mmHg BP Diastolic 68 mmHg Respiratory Rate 16 /min BMI (Body Mass Index) 23.2 kg/m2 05/28/2010 Height 66 inches 5'6" Weight 135.00 lb Heart Rate 65 /min BP Systolic Sitting 102 mmHg L BP Diastolic Sitting 70 mmHg L BMI (Body Mass Index) 21.8 kg/m2 08/11/2009 Weight 142.00 lb Heart Rate 72 /min BP Systolic 130 mmHg BP Diastolic 66 mmHg Respiratory Rate 16 /min 08/13/2008 Weight 150.00 lb Heart Rate 69 /min BP Systolic Sitting 130 mmHg BP Diastolic Sitting 50 mmHg Respiratory Rate 16 /min 02/07/2008 Height 67 inches 5'7" Weight 150.00 lb Heart Rate 60 /min BP Systolic Sitting 120 mmHg R BP Diastolic Sitting 70 mmHg R BMI (Body Mass Index) 23.5 kg/m2 10/05/2007 Height 67 inches 5'7" Weight 134.00 lb Heart Rate 66 /min BP Systolic Sitting 110 mmHg BP Diastolic Sitting 60 mmHg Respiratory Rate 16 /min BMI (Body Mass Index) 21.0 kg/m2 10/05/2006 Height 67 inches 5'7" Weight 120.50 lb Heart Rate 72 /min BP Systolic Sitting 98 mmHg BP Diastolic Sitting 60 mmHg BP Systolic Standing 90 mmHg BP Diastolic Standing 60 mmHg BMI (Body Mass Index) 18.9 kg/m2 09/21/2005 Height 67 inches 5'7" Weight 126.00 lb Heart Rate 66 /min BP Systolic Sitting 94 mmHg BP Diastolic Sitting 60 mmHg BP Systolic Standing 98 mmHg BP Diastolic Standing 62 mmHg BMI (Body Mass Index) 19.7 kg/m2 01/28/2004 Height 67 inches 5'7" Weight 126.00 lb Heart Rate 67 /min BP Systolic Sitting 108 mmHg left arm 110/60 BP Diastolic Sitting 60 mmHg left arm 110/60 BP Systolic Standing 92 mmHg BP Diastolic Standing 50 mmHg BMI (Body Mass Index) 19.7 kg/m2 Results Test Date Test Result H/L Range Note Laboratory test finding 10/26/2017 Hemoglobin A1c 8.9 High 5-7 Laboratory test finding 10/26/2017 Glucose Random 237 Laboratory test finding 06/20/2016 Creatine Kinase(CK) 52 U/L 10-223 CBC Auto Diff 06/20/2016 White Blood Count 5.6 10^3/uL 3.5-10.8 Red Blood Count 3.87 10^6/uL Low 4.0-5.4 Hemoglobin 10.9 g/dL Low 12.0-16.0 Hematocrit 33 % Low 35-47 Mean Corpuscular Volume 86 fL 80-97 Mean Corpuscular Hemoglobin 28 pg 27-31 Mean Corpuscular HGB Conc 33 g/dL 31-36 Red Cell Distribution Width 14 % 10.5-15 Platelet Count 216 10^3/uL 150-450 Mean Platelet Volume 9 um3 7.4-10.4 Abs Neutrophils 3.3 10^3/uL 1.5-7.7 Abs Lymphocytes 1.7 10^3/uL 1.0-4.8 Abs Monocytes 0.4 10^3/uL 0-0.8 Abs Eosinophils 0.2 10^3/uL 0-0.6 Abs Basophils 0 10^3/uL 0-0.2 Abs Nucleated RBC 0 10^3/uL Granulocyte % 58.4 % 38-83 Lymphocyte % 30.1 % 25-47 Monocyte % 6.6 % 1-9 Eosinophil % 4.0 % 0-6 Basophil % 0.9 % 0-2 Nucleated Red Blood Cells % 0 Laboratory test finding 06/20/2016 TSH (Thyroid Stim Horm) 2.63 mcIU/mL 0.34-5.60 Liver Function Panel 06/20/2016 Direct Bilirubin 0.10 mg/dL 0.03-0.18 Indirect Bilirubin 0.5 mg/dL 0.3-1.0 Lipid Profile (Trig/Chol/HDL) 06/20/2016 Triglycerides 84 mg/dL 1 Cholesterol 155 mg/dL 2 HDL Cholesterol 58.4 mg/dL 3 LDL Cholesterol 80 mg/dL 4 Urine Microalbumin Random 06/20/2016 Urine Creatinine 121.10 mg/dL Ur Microalbumin (mg/L) < 15.0 mg/L Urine Microalbumin/Creatinine TNP ug/mg <31 5 Comp Metabolic Panel 06/20/2016 Sodium 138 mmol/L 133-145 Potassium 4.9 mmol/L 3.5-5.0 Chloride 104 mmol/L 101-111 Co2 Carbon Dioxide 28 mmol/L 22-32 Anion Gap 6 mmol/L 2-11 Glucose 68 mg/dL Low 70-100 Blood Urea Nitrogen 27 mg/dL High 6-24 Creatinine 1.36 mg/dL High 0.51-0.95 BUN/Creatinine Ratio 19.9 8-20 Calcium 9.3 mg/dL 8.6-10.3 Total Protein 6.4 g/dL 6.4-8.9 Albumin 4.3 g/dL 3.2-5.2 Globulin 2.1 g/dL 2-4 Albumin/Globulin Ratio 2.0 1-3 Total Bilirubin 0.60 mg/dL 0.2-1.0 Alkaline Phosphatase 52 U/L 34-104 Alt 17 U/L 7-52 Ast 18 U/L 13-39 Egfr Non- 39.4 >60 Egfr 50.7 >60 6 CBC No Diff 06/20/2016 White Blood Count 5.6 10^3/uL 3.5-10.8 Red Blood Count 3.87 10^6/uL Low 4.0-5.4 Hemoglobin 10.9 g/dL Low 12.0-16.0 Hematocrit 33 % Low 35-47 Mean Corpuscular Volume 86 fL 80-97 Mean Corpuscular Hemoglobin 28 pg 27-31 Mean Corpuscular HGB Conc 33 g/dL 31-36 Red Cell Distribution Width 14 % 10.5-15 Platelet Count 216 10^3/uL 150-450 Mean Platelet Volume 9 um3 7.4-10.4 CBC No Diff 09/23/2014 White Blood Count 5.1 10^3/uL 4.8-10.8 7 Red Blood Count 3.88 10^6/uL Low 4.0-5.4 7 Hemoglobin 11.2 g/dL Low 12.0-16.0 7 Hematocrit 34 % Low 35-47 7 Mean Corpuscular Volume 87 fL 80-97 7 Mean Corpuscular Hemoglobin 29 pg 27-31 7 Mean Corpuscular HGB Conc 33 g/dL 31-36 7 Red Cell Distribution Width 14 % 10.5-15 7 Platelet Count 203 10^3/uL 150-450 7 Mean Platelet Volume 8 um3 7.4-10.4 7 Comp Metabolic Panel 09/23/2014 Sodium 136 mmol/L 133-145 7 Potassium 4.3 mmol/L 3.5-5.0 7 Chloride 102 mmol/L 101-111 7 Co2 Carbon Dioxide 29 mmol/L 22-32 7 Anion Gap 5 mmol/L 2-11 7 Glucose 223 mg/dL High 70-100 7 Blood Urea Nitrogen 14 mg/dL 6-24 7 Creatinine 0.97 mg/dL High 0.51-0.95 7 BUN/Creatinine Ratio 14.4 8-20 7 Calcium 9.1 mg/dL 8.6-10.3 7 Total Protein 6.2 g/dL Low 6.4-8.9 7 Albumin 4.3 g/dL 3.2-5.2 7 Globulin 1.9 g/dL Low 2-4 7 Albumin/Globulin Ratio 2.3 1-3 7 Total Bilirubin 0.50 mg/dL 0.2-1.0 7 Alkaline Phosphatase 46 U/L 34-104 7 Alt 14 U/L 7-52 7 Ast 13 U/L 13-39 7 Egfr Non- 58.6 >60 7 Egfr 75.3 >60 7, 8 Lipid Profile (Trig/Chol/HDL) 09/23/2014 Triglycerides 75 mg/dL 7, 9 Cholesterol 152 mg/dL 7, 10 HDL Cholesterol 54.0 mg/dL 7, 11 LDL Cholesterol 83 mg/dL 7, 12 Liver Function Panel 09/23/2014 Direct Bilirubin 0.10 mg/dL 0.03-0.18 7 Indirect Bilirubin 0.4 mg/dL 0.3-1.0 7 Iron & Iron Binding Capacity 09/23/2014 Iron 61 g/dL 50-212 7 Unsaturated Iron Binding 176 g/dL 7 Total Iron Binding Capacity 237 g/dL Low 250-450 7 % Iron Saturation 26 % 15-55 7 Laboratory test finding 09/23/2014 TSH (Thyroid Stim 1.38 ?IU/mL 0.34- 5.60 7, 13 Horm) Ferritin 59.6 ng/mL 11-307 7, 14 Vitamin B12 457 pg/mL 180-914 7, 15 Urine Microalbumin Random 09/23/2014 Ur Microalbumin (mg/L) 28.0 mg/L 7 Urine Creatinine 156.39 mg/dL 7 Urine Microalbumin/Creatinine 17.9 ug/mg <31 7 Urine Microalbumin Random 03/29/2012 Ur Microalbumin (Mg/L) 18.0 mg/L 16 Urine Creatinine 141.8 mg/dL Urine Microalbumin/Creatinine 12.7 ug/mg Less Than 31 Comp Metabolic Panel 03/29/2012 Sodium 137 mmol/L 133-145 Potassium 4.6 mmol/L 3.5-5.0 Chloride 102 mmol/L 101-111 Co2 Carbon Dioxide 28.0 mmol/L 22-32 Anion Gap 7.0 mmol/L 2-11 Glucose 225 mg/dL High 70-100 Blood Urea Nitrogen 18 mg/dL 6-24 Creatinine 1.00 mg/dL 0.50-1.40 BUN/Creatinine Ratio 18.0 8-20 Calcium 9.4 mg/dL 8.1-9.9 Total Protein 6.4 g/dL 6.2-8.1 Albumin 4.3 g/dL 3.6-5.4 Globulin 2.1 g/dL 2-4 Albumin/Globulin Ratio 2.0 1-3 Total Bilirubin 0.6 mg/dL 0.4-1.5 Alkaline Phosphatase 46 U/L 30-110 Alt 17 U/L 14-54 Ast 17 U/L 12-42 Egfr Non- 57.1 >60 Egfr 73.5 >60 17 Lipid Profile (Trig/Chol/HDL) 03/29/2012 Triglycerides 104 mg/dL 40-200 Cholesterol 173 mg/dL Less than 200 HDL Cholesterol 60 mg/dL 40-60 18 Cholesterol/HDL Ratio 2.9 Average 1-4.44 LDL Cholesterol 92.2 mg/dL Less Than 100 19 Liver Function Panel 03/29/2012 Direct Bilirubin 0.1 mg/dL 0.1-0.5 Indirect Bilirubin 0.5 mg/dL 0.3-1.0 Laboratory test finding 03/29/2012 TSH (Thyroid Stimulating 1.42 miu/mL 0.34-5.60 Horm) Thyroid Peroxidase Antibodies 0.5 IU/mL Less Than 9.0 Laboratory test finding 03/29/2012 Adrenal 21 Hydoxylase <1 U/mL <1 20 Immunoglobulin A 95 mg/dL 61 - 356 21 Transglutaminase Igg & Iga 03/29/2012 Tissue Transglutaminase IgA Ab <1.2 U/ mL 22 Tissue Transglutaminase IgG Ab <1.2 U/mL 23 Laboratory test finding 03/29/2012 Adrenal 21 Hydoxylase <1 U/mL <1 24 Immunoglobulin A 95 mg/dL 61 - 356 25 Laboratory test finding 03/29/2012 Gliadin IgA <10.0 U 26 Transglutaminase Igg & Iga 03/29/2012 Tissue Transglutaminase IgA Ab <1.2 U/ mL 27 Tissue Transglutaminase IgG Ab <1.2 U/mL 28 Urine Microalbumin Random 12/14/2010 Microalbumin (MG/L) 26.0 mg/L Urine Creatinine 179.80 mg/dL Jose L Alb/Creatinine Ratio 14.4 UG/MG Less Than 30 29 Comp Metabolic Panel 12/14/2010 Sodium 137 mmol/L 135-145 Potassium 4.7 mmol/L 3.5-5.0 Chloride 103 mmol/L 101-111 Co2 (Carbon Dioxide) 28.0 mmol/L 22-32 Anion Gap 6.0 mmol/L 2-11 30 Glucose 248 mg/dL High 70-100 BUN 14 mg/dL 6-24 Creatinine 0.8 mg/dL 0.50-1.40 One Over Creatinine 1.25 BUN/Creatinine Ratio 17.5 8-20 Calcium 9.5 mg/dL 8.1-9.9 Total Protein 6.3 GM/DL 6.2-8.1 Albumin 4.3 GM/DL 3.6-5.4 Globulin 2.0 GM/DL 2-4 Albumin/Globulin Ratio 2.2 1-3 Bilirubin Total 0.7 mg/dL 0.4-1.5 31 Alkaline Phosphatase 50 U/L 30-110 Alt (SGPT) 18 U/L 14-54 Ast (Sgot) 19 U/L 12-42 eGFR Non- 74.2 > 60 eGFR 95.4 > 60 32 Lipid Profile (Trig/Chol/HDL) 12/14/2010 Triglyceride 85 mg/dL 40-200 Cholesterol 158 mg/dL Less Than 200 33 High Density Lipoprotein 56 mg/dL 40-60 34 Cholesterol/HDL Ratio 2.82 AVERAGE 1-4.44 Low Density Lipoprotein 85 mg/dL Less Than 100 35 Liver Function Panel 12/14/2010 Bilirubin Direct 0.1 mg/dL 0.1-0.5 Indirect Bilirubin 0.6 mg/dL 0.3-1.0 36 Laboratory test finding 12/14/2010 TSH 1.09 MIU/ML 0.34-5.60 Comp Metabolic Panel 05/25/2010 Sodium 140 mmol/L 135-145 37 Potassium 5.0 mmol/L 3.5-5.0 37 Chloride 106 mmol/L 101-111 37 Co2 (Carbon Dioxide) 29.0 mmol/L 22-32 37 Anion Gap 5.0 mmol/L 2-11 37, 38 Glucose 94 mg/dL 70-100 37 BUN 19 mg/dL 6-24 37 Creatinine 1.10 mg/dL 0.50-1.40 37 One Over Creatinine 0.90 37 BUN/Creatinine Ratio 17.3 8-20 37 Calcium 9.3 mg/dL 8.1-9.9 37 Total Protein 6.5 GM/DL 6.2-8.1 37 Albumin 4.3 GM/DL 3.6-5.4 37 Globulin 2.2 GM/DL 2-4 37 Albumin/Globulin Ratio 2.0 1-3 37 Bilirubin Total 0.9 mg/dL 0.4-1.5 37, 39 Alkaline Phosphatase 40 U/L 30-110 37 Alt (SGPT) 16 U/L 14-54 37 Ast (Sgot) 16 U/L 12-42 37 eGFR Non- 51.4 > 60 37 eGFR 66.1 > 60 37, 40 Lipid Profile (Trig/Chol/HDL) 05/25/2010 Triglyceride 57 mg/dL 40-200 37 Cholesterol 163 mg/dL Less Than 200 37, 41 High Density Lipoprotein 67 mg/dL High 40-60 37, 42 Cholesterol/HDL Ratio 2.43 AVERAGE 1-4.44 37 Low Density Lipoprotein 85 mg/dL Less Than 100 37, 43 Laboratory test finding 05/25/2010 Cortisol 13.1 g/dL 37, 44 CBC With Electronic Diff 08/19/2009 White Blood Count 4.2 CUMM Low 4.8- 10.8 Red Cell Count 3.73 CUMM Low 4.2-5.4 Hemoglobin 11.2 g/dL Low 12.0-16.0 Hematocrit 32 % Low 35-47 Mean Corpuscular Volume 86 um3 79-97 Mean Corpuscular Hemoglob 30 pg 27-31 Mean Corpuscular HGB Cone 35 g/dL 32-36 Redcell Distribution WDTH 13 % 10.5-15 Platelet Count 239 CUMM 150-450 Mean Platelet Volume 7.8 um3 7.4-10.4 Gran % 59.2 % 38-83 Lymph % 24.1 % Low 25-47 Mononuclear % 6.6 % 1-9 Eosinophil % 8.6 % High 0-6 Basophil % 1.5 % 0-2 Abs Lymphs 1.0 1.0-4.8 Abs Mononuclear 0.3 0-0.8 Absolute Neutrophil Count 2.5 1.5-7.7 Abs Eosinophils 0.4 0-0.6 Abs Basophils 0.1 0-0.2 Comp Metabolic Panel 08/19/2009 Sodium 135 mmol/L 135-145 Potassium 5.2 mmol/L High 3.5-5.0 Chloride 101 mmol/L 101-111 Co2 (Carbon Dioxide) 30.0 mmol/L 22-32 Anion Gap 4.0 mmol/L 2-11 45 Glucose 276 mg/dL High 70-100 46 BUN 21 mg/dL 6-24 Creatinine 1.10 mg/dL 0.50-1.40 One Over Creatinine 0.90 BUN/Creatinine Ratio 19.1 8-20 Calcium 9.0 mg/dL 8.1-9.9 47 Total Protein 6.1 GM/DL Low 6.2-8.1 Albumin 4.2 GM/DL 3.6-5.4 Globulin 1.9 GM/DL Low 2-4 Albumin/Globulin Ratio 2.2 1-3 Bilirubin Total 0.7 mg/dL 0.4-1.5 48 Alkaline Phosphatase 47 U/L 30-110 Alt (SGPT) 16 U/L 14-54 Ast (Sgot) 16 U/L 12-42 eGFR Non- 54.8 > 60 eGFR 66.3 > 60 49 Lipid Profile (Trig/Chol/HDL) 08/19/2009 Triglyceride 89 mg/dL 40-200 Cholesterol 191 mg/dL Less Than 200 50 High Density Lipoprotein 51 mg/dL 40-60 51 Cholesterol/HDL Ratio 3.75 AVERAGE 1-4.44 Low Density Lipoprotein 122 mg/dL High Less Than 100 52 Liver Function Panel 08/19/2009 Bilirubin Direct 0.1 mg/dL 0.1-0.5 Indirect Bilirubin 0.6 mg/dL 0.1-0.75 Laboratory test finding 08/19/2009 TSH 1.72 MIU/ML 0.34-5.60 Urine Microalbumin Random 08/19/2009 Microalbumin (MG/L) 10.0 mg/L Urine Creatinine 153.38 mg/dL Jose L Alb/Creatinine Ratio 6.5 UG/MG Less Than 30 53 Laboratory test finding 11/20/2007 TSH 1.12 MIU/ML 0.34-5.60 Rheumatoid Factor < 20.0 IU/mL Less Than 20 Erythrocyte Sed Rate 17 MM/HR 0-30 Nery 11/20/2007 Antinuclear AB NEGATIVE Negative Reviewed By (SEE NOTE) 54 Laboratory test finding 11/20/2007 [facility] (SEE NOTE) 55 [facility] (SEE NOTE) 56 1 Desirable <150 Borderline high 150-199 High 200-499 Very High >500 2 Desirable <200 Borderline high 200-239 High >239 3 Low <40 Desirable: 40-60 High: >60 4 Desirable: <100 mg/dL Near Optimal: 100-129 mg/dL Borderline High: 130-159 mg/dL High: 160-189 mg/dL Very High: >189 mg/dL 5 Unable to calculate due to low microalbumin 6 Because ethnic data is not always readily available, this report includes an eGFR for both -Americans and non- Americans. The National Kidney Disease Education Program (NKDEP) does not endorse the use of the MDRD equation for patients that are not between the ages of 18 and 70, are , have extremes of body size, muscle mass, or nutritional status, or are non- or non-. According to the National Kidney Foundation, irrespective of diagnosis, the stage of the disease is based on the level of kidney function: Stage Description GFR(mL/min/1.73 m(2)) 1 Kidney damage with normal or decreased GFR 90 2 Kidney damage with mild decrease in GFR 60-89 3 Moderate decrease in GFR 30-59 4 Severe decrease in GFR 15-29 5 Kidney failure <15 (or dialysis) 7 PT IS FASTING 8 Because ethnic data is not always readily available, this report includes an eGFR for both -Americans and non- Americans. The National Kidney Disease Education Program (NKDEP) does not endorse the use of the MDRD equation for patients that are not between the ages of 18 and 70, are , have extremes of body size, muscle mass, or nutritional status, or are non- or non-. According to the National Kidney Foundation, irrespective of diagnosis, the stage of the disease is based on the level of kidney function: Stage Description GFR(mL/min/1.73 m(2)) 1 Kidney damage with normal or decreased GFR 90 2 Kidney damage with mild decrease in GFR 60-89 3 Moderate decrease in GFR 30-59 4 Severe decrease in GFR 15-29 5 Kidney failure <15 (or dialysis) 9 Desirable <150 Borderline high 150-199 High 200-499 Very High >500 10 Desirable <200 Borderline high 200-239 High >239 11 Low <40 Desirable: 40-60 High: >60 12 Desirable: <100 mg/dL Near Optimal: 100-129 mg/dL Borderline High: 130-159 mg/dL High: 160-189 mg/dL Very High: >189 mg/dL 13 PT IS FASTING 14 PT IS FASTING 15 Normal Range 180 to 914 Indeterminate Range 145 to 180 Deficient Range <145 16 Microalbuminuria in a random sample is defined as: Microalbumin/Creatinine ratio of 30-299 ug/mg. 17 Because ethnic data is not always readily available, this report includes an eGFR for both -Americans and non- Americans. The National Kidney Disease Education Program (NKDEP) does not endorse the use of the MDRD equation for patients that are not between the ages of 18 and 70, are , have extremes of body size, muscle mass, or nutritional status, or are non- or non-. According to the National Kidney Foundation, irrespective of diagnosis, the stage of the disease is based on the level of kidney function: Stage Description GFR(mL/min/1.73 m(2)) 1 Kidney damage with normal or decreased GFR 90 2 Kidney damage with mild decrease in GFR 60-89 3 Moderate decrease in GFR 30-59 4 Severe decrease in GFR 15-29 5 Kidney failure <15 (or dialysis) 18 HDL Interpretation: Undesirable: High Risk: Less than 40 MG/DL Desirable: Low Risk: Greater than 60 MG/DL 19 LDL Interpretation: Low Risk Optimal Level: LDL Less than 100 MG/DL Near or Above Optimal: LDL 100-129 MG/DL Borderline High Risk: LDL 130-159 MG/DL High Risk: LDL 160-189 MG/DL Very High Risk: LDL Greater than 189 MG/DL 20 For research use only. Test Performed by: [place] [address] English Teacher: Félix Gonzales III, M.D. 21 Test Performed by: [place] [address] English Teacher: Félix Gonzales III, M.D. 22 -- REFERENCE VALUE -- <4.0 (Negative) 23 -- REFERENCE VALUE -- <6.0 (Negative) Test Performed by: [place] [address] English Teacher: Félix Gonzales III, M.D. 24 For research use only. Test Performed by: [place] [address] English Teacher: Félix Gonzales III, M.D. 25 Test Performed by: [place] [address] English Teacher: Félix Gonzales III, M.D. 26 -- REFERENCE VALUE -- <20.0 (Negative) Test Performed by: [place] [address] English Teacher: Félix Gonzales III, M.D. 27 -- REFERENCE VALUE -- <4.0 (Negative) 28 -- REFERENCE VALUE -- <6.0 (Negative) Test Performed by: [place] [address] English Teacher: Félix Gonzales III, M.D. 29 MICROALBUMINURIA IN A RANDOM SAMPLE IS DEFINED : MICROALBUMIN/CREATININE RATIO OF 30-299 ug/mg. . 30 Anion gap measurement may be of limited value in the presence of any alkalosis, especially in a combined acid base disorder. . 31 A metabolite of Naproxen, O-desmethylnaproxen, has been shown to interfere with the Brittaney-Adeline method for measuring total bilirubin. Samples from patients who have taken Naproxen have shown spurious elevation in total bilirubin levels. 32 Because ethnic data is not always readily available, this report includes an eGFR for both -Americans and non- Americans. The National Kidney Disease Education Program (NKDEP) does not endorse the use of the MDRD equation for patients that are not between the ages of 18 and 70, are , have extremes of body size, muscle mass, or nutritional status, or are non- or non-. According to the National Kidney Foundation, irrespective of diagnosis, the stage of the disease is based on the level of kidney function: Stage Description GFR(mL/min/1.73 m(2)) 1 Kidney damage with normal or decreased GFR 90 2 Kidney damage with mild decrease in GFR 60-89 3 Moderate decrease in GFR 30-59 4 Severe decrease in GFR 15-29 5 Kidney failure <15 (or dialysis) 33 CHOLESTEROL INTERPRETATION: Desirable: Less than 200 MG/DL Borderline-High Risk: 200-239 MG/DL High-Risk: 240 MG/DL and over 34 HDL INTERPRETATION: Undesirable: High Risk: Less than 40 MG/DL Desirable: Low Risk: Greater than 60 MG/DL 35 LDL INTERPRETATION: Low Risk Optimal Level: LDL Less than 100 MG/DL Near or Above Optimal: LDL 100-129 MG/DL Borderline High Risk: LDL 130-159 MG/DL High Risk: LDL 160-189 MG/DL Very High Risk: LDL Greater than 189 MG/DL 36 Please note updated reference range, effective 09/10/09 37 FASTING 38 Anion gap measurement may be of limited value in the presence of any alkalosis, especially in a combined acid base disorder. . 39 A metabolite of Naproxen, O-desmethylnaproxen, has been shown to interfere with the [place] method for measuring total bilirubin. Samples from patients who have taken Naproxen have shown spurious elevation in total bilirubin levels. 40 Because ethnic data is not always readily available, this report includes an eGFR for both -Americans and non- Americans. The National Kidney Disease Education Program (NKDEP) does not endorse the use of the MDRD equation for patients that are not between the ages of 18 and 70, are , have extremes of body size, muscle mass, or nutritional status, or are non- or non-. According to the National Kidney Foundation, irrespective of diagnosis, the stage of the disease is based on the level of kidney function: Stage Description GFR(mL/min/1.73 m(2)) 1 Kidney damage with normal or decreased GFR 90 2 Kidney damage with mild decrease in GFR 60-89 3 Moderate decrease in GFR 30-59 4 Severe decrease in GFR 15-29 5 Kidney failure <15 (or dialysis) 41 CHOLESTEROL INTERPRETATION: Desirable: Less than 200 MG/DL Borderline-High Risk: 200-239 MG/DL High-Risk: 240 MG/DL and over 42 HDL INTERPRETATION: Undesirable: High Risk: Less than 40 MG/DL Desirable: Low Risk: Greater than 60 MG/DL 43 LDL INTERPRETATION: Low Risk Optimal Level: LDL Less than 100 MG/DL Near or Above Optimal: LDL 100-129 MG/DL Borderline High Risk: LDL 130-159 MG/DL High Risk: LDL 160-189 MG/DL Very High Risk: LDL Greater than 189 MG/DL 44 REFERENCE RANGE: AM 8.7-22.4 PM LESS THAN 10 . 45 Anion gap measurement may be of limited value in the presence of any alkalosis, especially in a combined acid base disorder. . 46 Note change in reference range as of 10/11/07. The change was based on recommendations from the [place] [employer]. 47 Please note change in reference range effective 07 . 48 A metabolite of Naproxen, O-desmethylnaproxen, has been shown to interfere with the [place] method for measuring total bilirubin. Samples from patients who have taken Naproxen have shown spurious elevation in total bilirubin levels. 49 Because ethnic data is not always readily available, this report includes an eGFR for both -Americans and non- Americans. The National Kidney Disease Education Program (NKDEP) does not endorse the use of the MDRD equation for patients that are not between the ages of 18 and 70, are , have extremes of body size, muscle mass, or nutritional status, or are non- or non-. According to the National Kidney Foundation, irrespective of diagnosis, the stage of the disease is based on the level of kidney function: Stage Description GFR(mL/min/1.73 m(2)) 1 Kidney damage with normal or decreased GFR 90 2 Kidney damage with mild decrease in GFR 60-89 3 Moderate decrease in GFR 30-59 4 Severe decrease in GFR 15-29 5 Kidney failure <15 (or dialysis) 50 CHOLESTEROL INTERPRETATION: Desirable: Less than 200 MG/DL Borderline-High Risk: 200-239 MG/DL High-Risk: 240 MG/DL and over 51 HDL INTERPRETATION: Undesirable: High Risk: Less than 40 MG/DL Desirable: Low Risk: Greater than 60 MG/DL 52 LDL INTERPRETATION: Low Risk Optimal Level: LDL Less than 100 MG/DL Near or Above Optimal: LDL 100-129 MG/DL Borderline High Risk: LDL 130-159 MG/DL High Risk: LDL 160-189 MG/DL Very High Risk: LDL Greater than 189 MG/DL 53 MICROALBUMINURIA IN A RANDOM SAMPLE IS DEFINED : MICROALBUMIN/CREATININE RATIO OF 30-299 ug/mg. . 54 REVIEWED BY RUTHANN RIVERA MD 55 TEST RESULT RETURNED FROM REFERENCE LABORATORY AND HARDCOPY SENT TO PHYSICIAN(S) OFFICE. 56 TEST RESULT RETURNED FROM REFERENCE LABORATORY AND HARDCOPY SENT TO PHYSICIAN(S) OFFICE. Procedures Date CPT Code Description Status 07/05/2017 Colonoscopy Completed 07/05/2017 58746 Colonoscopy Flexible Diagnostic Completed 06/29/2017 82507 EKG Tracing & Interpretation Completed 01/18/2017 63759 EKG, Interpretation Only Completed 09/02/2016 01583 Treadmill Interp/Report Only Completed 09/02/2016 18002 Stress Test Supervsn W/Out I/R Completed 07/13/2016 75183 ECHO Transthoracic, Real-Time 2D With Doppler And Color Completed Flow 06/16/2016 70227 EKG Tracing & Interpretation Completed 05/29/2013 50721 EKG Tracing & Interpretation Completed 03/29/2012 41906 EKG Tracing & Interpretation Completed 07/26/2011 23760 Stress Test Supervsn W/Out I/R Completed 07/26/2011 58681 Stress ECHO Interpretation/Report Hospital Completed 07/26/2011 14993 Treadmill Interp/Report Only Completed 03/30/2011 00628 EKG Tracing & Interpretation Completed 05/28/2010 49182 EKG Tracing & Interpretation Completed 08/11/2009 06403 EKG Tracing & Interpretation Completed 11/03/2008 78032 Stress ECHO Interpretation/Report Hospital Completed 11/03/2008 25084 Treadmill Interp/Report Only Completed 11/03/2008 54399 Stress Test Supervsn W/Out I/R Completed 08/13/2008 43201 EKG Tracing & Interpretation Completed 10/05/2007 11278 EKG Tracing & Interpretation Completed 10/05/2006 78836 EKG Tracing & Interpretation Completed 04/04/2006 54770 Stress ECHO Interpretation/Report Hospital Completed 04/04/2006 73553 Treadmill Interp/Report Only Completed 04/04/2006 35793 Treadmill Interp/Report Only Completed 04/04/2006 64953 Stress Test Supervsn W/Out I/R Completed 09/21/2005 39200 EKG Tracing & Interpretation Completed 04/06/2004 52527 ECHO/Stress Completed 04/06/2004 55304 Treadmill Interp/Report Only Completed 04/06/2004 99434 Stress Test Supervsn W/Out I/R Completed 03/03/2004 78633 Color Doppler Completed 03/03/2004 29372 Pulse Doppler & Continuous Wave Completed 03/03/2004 79663 Echocardiogram Completed 01/28/2004 77214 EKG Tracing & Interpretation Completed Encounters Type Date Location Provider CPT E/M Dx Office Visit 06/29/2017 1:00p [facility] Ramos Shirley, 18885 E10.8 M.D. E78.5 I25.10 I34.0 Office Visit 02/02/2017 7:55a [facility] Becky Reynolds, 10720 R11.2 Assoc,pc [employer] [facility] E78.5 E10.8 Z86.79 Office Visit 01/17/2017 9:29a [facility] Assoc,pc Curtis Schafer, 79894 R11.2 Hospitalists N.P. I25.10 E10.8 I10 Office Visit [facility]2016 [facility] 65299 R73.9 Assoc,pc Hospitalists Jacqui I25.10 R53.81 Office Visit 06/16/2016 2:00p [facility] Ramos Shirley, 27225 E78.00 M.D. E10.9 I25.2 I25.10 Office Visit 01/19/2016 10:15a [facility] Khadar Blount, 70408 S92.511D Of [facility]en Osman Office Visit 12/18/2015 10:10a [facility] Khadar Blount, 98900 S92.511D Of Ruben Osman S90.934A Office Visit 12/10/2015 11:45a [facility] Khadar Blount, 35094 S90.934A Of Ruben Osman Office Visit 05/29/2013 2:00p [facility] Ramos Chung 94491 414.01 Jacqui Shirley 272.0 250.01 412 Office Visit 03/29/2012 11:20a [facility] Ramos Shirley 63790 250.01 M.D. 414.01 272.0 412 Office Visit 07/26/2011 10:30a [facility] Ramos Shirley 73368 414.01 M.DSierra 250.01 272.0 Office Visit 03/30/2011 11:20a [facility] AT Ramos Shirley 46088 412 [facility] M.D. 250.01 424.0 414.01 Office Visit 05/28/2010 11:20a [facility] Ramos Shirley M.D. 18773 412 250.01 424.0 414.01 Office Visit 08/11/2009 11:00a [facility] Ramos Shirley 44817 414.01 M.D. 412 250.01 424.0 Office Visit 08/13/2008 11:00a [facility] Ramos Shirley 24029 414.01 M.D. 250.01 272.0 424.0 Office Visit 02/07/2008 11:00a [facility] Ramos Shirley 80413 414.01 M.D. 250.01 272.0 Office Visit 10/05/2007 11:20a [facility] Ramos Shirley 25244 414.01 M.D. 250.01 272.0 424.0 Office Visit 10/05/2006 2:20p [facility] Ramos Shirley 48227 414.01 M.D. 250.01 272.0 424.0 Office Visit 09/21/2005 3:00p [facility] Ramos Shirley 14713 414.01 M.D. 412 250.01 272.0 Office Visit 01/28/2004 10:20a [facility] Ramos Shirley, 15434 414.01 M.D. 412 785.2 250.01 Plan of Care Future Appointment(s):01/25/2018 11:00 am - Maulik Mcintosh MD at [facility]10/26/2017 - Maulik Mcintosh MDE10.8 Type 1 diabetes mellitus with unspecified complicationsNew Medication:Onetouch Ultra BlueFollow up:3 monthsInstructions:1. Blood tests today. 2. We will send your results to you by mail or contact you with problems. 3. Schedule an appointment with primary care physician. 4. Increase your Humalog dose to 1 unit per 12g carbohydrate. 5. Increase your Lantus dose by 1 unit until morning glucose is less than 140 for 3 daysin a row. 6. Return in 3 months for a follow-up visit. 7. We will try to obtain a wearable glucose monitor for you.
[2017-11-21 18:24] LABS: Urine Appearance Cloudy; Urine Blood Negative (Negative); Urine Color Amber; Urine Ketones 1+ (Negative); Urine Protein 1+(30 mg/dL) (Negative); Urine Red Blood Cell 3+(>10/hpf) (Absent); Urine Specific Gravity 1.025 (1.010-1.030); Urine Urobilinogen Positive (Negative); Urine White Blood Cell 3+(>20/hpf) (Absent)
[2017-11-21 18:39] LABS: ABS Basophils 0 10^3/ul (0-0.2); ABS Eosinophils 0.1 10^3/ul (0-0.6); ABS Lymphocytes 1.3 10^3/ul (1.0-4.8); ABS Monocytes 0.3 10^3/ul (0-0.8); ABS Neutrophils 5.2 10^3/ul (1.5-7.7); ABS Nucleated RBC 0 10^3/ul; Eosinophil % 1.3 % (0-6); Hematocrit 37 % (35-47); Hemoglobin 12.8 g/dl (12.0-16.0); Lymphocyte % 18.5 % (25-47); Mean Corpuscular HGB Conc 35 g/dl (31-36); Mean Corpuscular Hemoglobin 29 pg (27-31); Mean Corpuscular Volume 84 fL (80-97); Mean Platelet Volume 8.1 um3 (7.4-10.4); Nucleated Red Blood Cells % 0.1; Platelet Count 283 10^3/ul (150-450); Red Blood Count 4.35 10^6/ul (4.00-5.40); Red Cell Distribution Width 14 % (10.5-15); White Blood Count 6.9 10^3/ul (3.5-10.8)
[2017-11-21 18:59] LABS: EGFR Non-African American 55.4 (>60)
--- NOTE | 2017-11-21 20:12 | ED ---
Abdominal Pain/Female - HPI Summary HPI Summary: This patient is a 62 year old F presenting to [facility] accompanied by with a chief complaint of N/V and associated diabetic problems since 11/19/17. Pt states she hasnt eaten in 2 days because of N/V, which is negatively impacting her PMHx DM I. She endorses acid reflux currently, as she has no food or liquid in her stomach. She endorses mild abd pain, a BM this AM, and denies fever. PMHx gallstones. - History of Current Complaint Chief Complaint: EDNauseaVomitDiarrh Stated Complaint: VOMITING Time Seen by Provider: 11/21/17 20:02 Hx Obtained From: Patient Onset/Duration: Gradual Onset, Lasting Days, Still Present Timing: Constant Severity Initially: Moderate Severity Currently: Moderate Pain Intensity: 5 Pain Scale Used: 0-10 Numeric Location: Diffuse Radiates: No Character: Other: - "sore" Aggravating Factor(s): Nothing Alleviating Factor(s): Nothing Associated Signs and Symptoms: Positive: Decreased Appetite, Nausea, Vomiting. Negative: Fever, Diarrhea Allergies/Adverse Reactions: Allergies Allergy/AdvReac Type Severity Reaction Status Date / Time CALAMARI Allergy Swelling Uncoded 11/21/17 17:50 ENVIRONMENTAL/SEASONAL Allergy STUFFINESS Uncoded 11/21/17 17:50 HAYFEVER PMH/Surg Hx/FS Hx/Imm Hx Endocrine/Hematology History: Reports: Hx Diabetes - Type 1, Other Endocrine/ Hematological Disorders - sclerodema Denies: Hx Anemia Cardiovascular History: Reports: Hx Angina - not recent, Hx Coronary Artery Disease, Hx Hypercholesterolemia, Hx Hypertension, Hx Myocardial Infarction - 2 times, Other Cardiovascular Problems/Disorders - bypass Denies: Hx Congestive Heart Failure, Hx Pacemaker/ICD, Hx Valvular Heart Disease Respiratory History: Denies: Hx Asthma GI History: Denies: Hx Jaundice History: Denies: Hx Renal Disease Musculoskeletal History: Reports: Hx Arthritis - GENERALIZED, Hx Back Problems, Other Musculoskeletal History - neurpathy Denies: Hx Osteoporosis Sensory History: Reports: Hx Contacts or Glasses - READING GLASSES, Other Sensory Impairments - dentures Denies: Hx Deafness, Hx Hearing Aid Opthamlomology History: Reports: Hx Contacts or Glasses - READING GLASSES, Other Sensory Impairments - dentures Neurological History: Reports: Other Neuro Impairments/Disorders - PAIN CLINIC PATIENT Psychiatric History: Reports: Hx Anxiety, Hx Depression, Other Psychiatric Issues/Disorders - claustrophobia Denies: Hx Panic Disorder - Surgical History Surgery Procedure, Year, and Place: CARDIAC STENTS. CARDIAC BYPASS, [place]. 1984 APPEN[place]CTOMY, [place] BILATERAL BREAST CYST REMOVED, [place], [place]. AGE 3 THYROID CYST REMOVED, [place], [place]. CATARACTS. Lt TRIGGER FINGER. MOLE REMOVED FROM NECK - BENIGN. AGE 7, LEFT WRIST FRACTUE REPAIR, [place], [place]. 3x c-sections Hx Anesthesia Reactions: No Infectious Disease History: No Infectious Disease History: Denies: Hx Clostridium Difficile, Hx Hepatitis, Hx Human Immunodeficiency Virus (HIV), Hx of Known/Suspected MRSA, Hx Shingles, Hx Tuberculosis, History Other Infectious Disease, Traveled Outside the in Last 30 Days - Family History Known Family History: Positive: Cardiac Disease, Other - Cancer - Social History Lives: With Family Alcohol Use: None Alcohol Amount: 3 / week Hx Substance Use: No Substance Use Type: Reports: None Hx Tobacco Use: Yes Smoking Status (MU): Former Smoker Type: Cigarettes Amount Used/How Often: less than a pack a day Length of Time of Smoking/Using Tobacco: 31 Have You Smoked in the Last Year: No Review of Systems Negative: Fever Positive: Abdominal Pain, Vomiting, Nausea. Negative: Diarrhea Positive: no symptoms reported All Other Systems Reviewed And Are Negative: Yes Physical Exam - Summary Physical Exam Summary: VITAL SIGNS: Reviewed. GENERAL: Patient is a well-developed and nourished female who is lying comfortable in the stretcher. Patient is not in any acute respiratory distress. HEAD AND FACE: No signs of trauma. No ecchymosis, hematomas or skull depressions. No sinus tenderness. EYES: PERRLA, EOMI x 2, No injected conjunctiva, no nystagmus. EARS: Hearing grossly intact. Ear canals and tympanic membranes are within normal limits. MOUTH: Oropharynx within normal limits. NECK: Supple, trachea is midline, no adenopathy, no JVD, no carotid bruit, no c- spine tenderness, neck with full ROM. CHEST: Symmetric, no tenderness at palpation LUNGS: Clear to auscultation bilaterally. No wheezing or crackles. CVS: Regular rate and rhythm, S1 and S2 present, no murmurs or gallops appreciated. ABDOMEN: Soft, non-tender. No signs of distention. No rebound no guarding, and no masses palpated. Bowel sounds are normal. EXTREMITIES: FROM in all major joints, no edema, no cyanosis or clubbing. NEURO: Alert and oriented x 3. No acute neurological deficits. Speech is normal and follows commands. SKIN: Dry and warm Triage Information Reviewed: Yes Vital Signs On Initial Exam: Initial Vitals Temp Pulse Resp BP Pulse Ox 98.7 F 95 17 125/70 100 11/21/17 17:45 11/21/17 17:45 11/21/17 17:45 11/21/17 17:45 11/21/17 17:45 Vital Signs Reviewed: Yes Diagnostics - Vital Signs Vital Signs Temp Pulse Resp BP Pulse Ox 11/21/17 19:51 97.8 F 91 16 128/69 100 11/21/17 17:45 98.7 F 95 17 125/70 100 - Laboratory Lab Results: Lab Results 11/21/17 11/21/17 11/21/17 Range/Units 17:57 18:25 18:25 WBC 6.9 (3.5-10.8) 10^3/ul RBC 4.35 (4.00-5.40) 10^6/ul Hgb 12.8 (12.0-16.0) g/dl Hct 37 (35-47) % MCV 84 (80-97) fL MCH 29 (27-31) pg MCHC 35 (31-36) g/dl RDW 14 (10.5-15) % Plt Count 283 (150-450) 10^3/ul MPV 8.1 (7.4-10.4) um3 Neut % (Auto) 75.1 (38-83) % Lymph % (Auto) 18.5 L (25-47) % Clinton % (Auto) 4.7 (0-7) % Eos % (Auto) 1.3 (0-6) % Baso % (Auto) 0.4 (0-2) % Absolute Neuts (auto) 5.2 (1.5-7.7) 10^3/ul Absolute Lymphs (auto) 1.3 (1.0-4.8) 10^3/ul Absolute Monos (auto) 0.3 (0-0.8) 10^3/ul Absolute Eos (auto) 0.1 (0-0.6) 10^3/ul Absolute Basos (auto) 0 (0-0.2) 10^3/ul Absolute Nucleated RBC 0 10^3/ul Nucleated RBC % 0.1 VBG pH (7.33-7.43) VBG pCO2 (41-51) mmHg VBG pO2 (35-45) mmHg VBG HCO3 (24-28) mmol/L VBG O2 Saturation (70-80) % VBG Base Excess (0-4) Sodium 138 (135-145) mmol/L Potassium 3.9 (3.5-5.0) mmol/L Chloride 102 (101-111) mmol/L Carbon Dioxide 27 (22-32) mmol/L Anion Gap 9 (2-11) mmol/L BUN 20 (6-24) mg/dL Creatinine 1.01 H (0.51-0.95) mg/dL Est GFR ( Amer) 67.0 (>60) Est GFR (Non-Af Amer) 55.4 (>60) BUN/Creatinine Ratio 19.8 (8-20) Glucose 151 H (70-100) mg/dL Lactic Acid (0.5-2.0) mmol/L Calcium 10.1 (8.6-10.3) mg/dL Total Bilirubin 0.80 (0.2-1.0) mg/dL AST 17 (13-39) U/L ALT 20 (7-52) U/L Alkaline Phosphatase 82 (34-104) U/L C-Reactive Protein 4.07 (<8.01) mg/L Total Protein 7.8 (6.4-8.9) g/dL Albumin 5.0 (3.2-5.2) g/dL Globulin 2.8 (2-4) g/dL Albumin/Globulin Ratio 1.8 (1-3) Urine Color Anette Urine Appearance Cloudy Urine pH 5.0 (5-9) Ur Specific Alta 1.025 (1.010-1.030) Urine Protein 1+(30 mg/dl) A (Negative) Urine Ketones 1+ A (Negative) Urine Blood Negative (Negative) Urine Nitrate Negative (Negative) Urine Bilirubin Negative (Negative) Urine Urobilinogen Positive A (Negative) Ur Leukocyte Esterase 3+ A (Negative) Urine WBC (Auto) 3+(>20/hpf) A (Absent) Urine RBC (Auto) 3+(>10/hpf) A (Absent) Ur Squamous Epith Cells Present A (Absent) Ur Transition Epith Cell Present A (Absent) Urine Bacteria Absent (Absent) Hyaline Casts Present A (Absent) Urine Glucose Negative (Negative) 11/21/17 11/21/17 Range/Units 18:25 18:25 WBC (3.5-10.8) 10^3/ul RBC (4.00-5.40) 10^6/ul Hgb (12.0-16.0) g/dl Hct (35-47) % MCV (80-97) fL MCH (27-31) pg MCHC (31-36) g/dl RDW (10.5-15) % Plt Count (150-450) 10^3/ul MPV (7.4-10.4) um3 Neut % (Auto) (38-83) % Lymph % (Auto) (25-47) % Clinton % (Auto) (0-7) % Eos % (Auto) (0-6) % Baso % (Auto) (0-2) % Absolute Neuts (auto) (1.5-7.7) 10^3/ul Absolute Lymphs (auto) (1.0-4.8) 10^3/ul Absolute Monos (auto) (0-0.8) 10^3/ul Absolute Eos (auto) (0-0.6) 10^3/ul Absolute Basos (auto) (0-0.2) 10^3/ul Absolute Nucleated RBC 10^3/ul Nucleated RBC % VBG pH 7.42 (7.33-7.43) VBG pCO2 42 (41-51) mmHg VBG pO2 17 L (35-45) mmHg VBG HCO3 25.0 (24-28) mmol/L VBG O2 Saturation 26.7 L (70-80) % VBG Base Excess 2.4 (0-4) Sodium (135-145) mmol/L Potassium (3.5-5.0) mmol/L Chloride (101-111) mmol/L Carbon Dioxide (22-32) mmol/L Anion Gap (2-11) mmol/L BUN (6-24) mg/dL Creatinine (0.51-0.95) mg/dL Est GFR ( Amer) (>60) Est GFR (Non-Af Amer) (>60) BUN/Creatinine Ratio (8-20) Glucose (70-100) mg/dL Lactic Acid 1.1 (0.5-2.0) mmol/L Calcium (8.6-10.3) mg/dL Total Bilirubin (0.2-1.0) mg/dL AST (13-39) U/L ALT (7-52) U/L Alkaline Phosphatase (34-104) U/L C-Reactive Protein (<8.01) mg/L Total Protein (6.4-8.9) g/dL Albumin (3.2-5.2) g/dL Globulin (2-4) g/dL Albumin/Globulin Ratio (1-3) Urine Color Urine Appearance Urine pH (5-9) Ur Specific Alta (1.010-1.030) Urine Protein (Negative) Urine Ketones (Negative) Urine Blood (Negative) Urine Nitrate (Negative) Urine Bilirubin (Negative) Urine Urobilinogen (Negative) Ur Leukocyte Esterase (Negative) Urine WBC (Auto) (Absent) Urine RBC (Auto) (Absent) Ur Squamous Epith Cells (Absent) Ur Transition Epith Cell (Absent) Urine Bacteria (Absent) Hyaline Casts (Absent) Urine Glucose (Negative) Result Diagrams: 11/21/17 18:25 11/21/17 18:25 Lab Statement: Any lab studies that have been ordered have been reviewed, and results considered in the medical decision making process. Re-Evaluation - Re-Evaluation First Eval Re-Evaluation Time: 22:00 Change: Improved Comment: Able to tolerate PO crackers and fluid. Abdominal Pain Fem Course/Dx - Course Course Of Treatment: A 62-year-old F presents to the ED with a CC of N/V for 2 days. (+) decreased appetite (has not eaten in 2 days), mild abd pain. (-) fever , diarrhea. PMHx DM I, feels DM is aggravated with lack of food over past couple of days. In the ED course, pt was given nl saline, maalox, protonix, reglan, and lidocaine. Pt labs are nl except for high glucose, VBG pO2, VGB O2 sat, and urine protein, ketones, WBC, RBC, urobilinogen, epithelial cells, hyaline casts, and esterase. Pt sx most likely secondary to gastroparesis. Pt is a long-standing diabetic, was able to tolerate PO fluid and crackers. - Diagnoses Provider Diagnoses: Gastroparesis, UTI (urinary tract infection) Discharge - Sign-Out/Discharge Documenting (check all that apply): Patient Departure - discharge - Discharge Plan Condition: Stable Disposition: HOME Prescriptions: Levofloxacin TAB* [Levaquin TAB*] 500 mg PO DAILY #7 tab Metoclopramide TAB* [Reglan TAB*] 10 mg PO Q6H PRN #20 tab PRN Reason: Nausea/Vomiting Patient Education Materials: Gastroparesis (ED), Urinary Tract Infection in Women (ED) Referrals: Augustina Kumar MD [Primary Care Provider] - Lc Adair DO [Doctor of Osteopathy] - Additional Instructions: Please return to the emergency room for any new or worsening symptoms. Follow up with your PCP and stone repairer (info provided) in 1 to 2 days. - Attestation Statements Document Initiated by Scribe: Yes Documenting Scribe: Kole Higuera Provider For Whom Scribe is Documenting (Include Credential): Dr. Olamide Mccarty MD Scribe Attestation: Kole Agarwal, scribed for Dr. Olamide Mccarty MD on 11/21/17 at 2201.
[2017-11-21 22:29] VITALS: BP 140/83
== END | disposition home or self-care (01) ==
LOC: ED 17:42
DX: E10.43 Type 1 diabetes mellitus with diabetic autonomic (poly)neuropathy (principal); K31.84 Gastroparesis; N39.0 Urinary tract infection, site not specified; I25.119 Atherosclerotic heart disease of native coronary artery with unspecified angina pectoris; I10 Essential (primary) hypertension; E78.00 Pure hypercholesterolemia, unspecified; I25.2 Old myocardial infarction; Z95.1 Presence of aortocoronary bypass graft; Z87.891 Personal history of nicotine dependence
CPT/HCPCS: 36415; 80053; 81003; 81015; 82803; 83605; 84484; 85025; 86140; 87086; 96361; 96374; 96375; 99283; A9270-GY; J2765

== ENCOUNTER → 2018-03-11 17:17 | Emergency (ER) | payer OTHER ==
[~2018-03-11 17:17] MED LIST changes: -Al Hydrox/Mg Hydrox/Simet LIQ* 30 ML UDC PO ONE; -Levofloxacin TAB* 500 MG PO ONE; -Lidocaine 2% VISCOUS* 15 ML UDC PO ONE
--- OUTSIDE RECORDS SUMMARY | 2018-03-11 17:33 | XMS REPORT | Continuity of Care Document ---
:1955 External Reference #:[id number] Author Name Ruthleena Kailee Care Team Providers Name Role Phone Augustina Kumar MD Primary Care Physician Unavailable Payers Type Date Identification Numbers Payment Provider Subscriber Effective: Policy Number: [id number] BS Facets Juliana Dia 2011 Expires: 2016 PayID: [id number] [address] [address] ALBER Penny [address] Effective: 2007 Policy Number: [id number] BS Of LAURA Dia Expires: 2011 Group Number: [id number] [address] [address] PayID: [id number] ALBER Penny [address] Effective: 1998 Policy Number: [id number] BS Of LAURA Dia II Expires: 2007 Group Number: [id number] [address] [address] PayID: [id number] ALBER Penny [address] Expires: 2016 Policy Number: [id number] BS Facets Juliana Dia PayID: [id number] [address] [address] ALBER Penny [address] Policy Number: [id number] Иван Dia PayID: [id number] [address] [place] [address] Advance Directives Description No Information Available Problems Date Description Provider Status Onset: 03/29/2012 Type 1 diabetes mellitus Ramos Shirley M.D. Active Onset: 03/29/2012 Coronary arteriosclerosis Ramos Shirley M.D. Active Onset: 03/29/2012 Pure hypercholesterolemia Ramos Shirley M.D. Active Onset: 03/29/2012 Old myocardial infarction Ramos Shirley M.D. Active Onset: 11/23/2017 Gastroesophageal reflux disease Paola Craig NP Active Family History Date Family Member(s) Problem(s) Comments General Heart Disease General Diabetes Type I Father due to Natural Causes () - age 94 Mother due to Colon Cancer () - age 91 Siblings 3 Social History Type Date Description Comments Sex Unknown Marital Status Lives With Occupation [employer] Use Denies alcohol use Tobacco Use Start: Unknown End: Patient is a former smoker Unknown Recreational Drug Use Denies Drug Use Smoking Status Reviewed: 02/21/18 Patient is a former smoker Exercise Type/Frequency Exercises regularly Allergies, Adverse Reactions, Alerts Date Description Reaction Status Severity Comments 01/28/2004 Iodine Active swollen eyes 10/26/2017 Shellfish-derived Products Active swollen eyes Medications Medication Date Status Form Strength Qnty SIG Indications Ordering Provider Freestyle 02/21/ Active Device 1unit use at E10.8 [facility] Omer 14 2018 s least 4 MD Arnaldo Day/[place]/Fl times daily gui with sensor Monitoring System Freestyle 02/21/ Active Misc 2unit place one E10.8 [place] Omer 14 2019 s sensor MD Arnaldo Day/Sensor/Fl every 10-14 gui days Monitoring System Precision 01/25/ Active Strips 20uni use as E10.8 [place] Xtra Ketone 2018 ts needed for MD Arnaldo ketone testing Precision 01/25/ Active Device 1unit use as E10.8 [place] Xtra 2018 s needed for MD Arnaldo glucose and ketone monitoring Lipitor 10/30/ Active Tablets 80mg 90tab 1 tablet by [place] 2018 s mouth once MD Arnaldo daily at bedtime Onetouch 10/26/ Active Strips 200un use up to E10.8 [place] Ultra Blue 2018 its 6x/day MD Arnaldo Zyrtec 06/16/ Active Capsules 10mg Ramos Allergy 2016 Sheldon Shirley M.D. Multi Vitamin 08/13/ Active Tablets 1 po qd Ramos 2009 Sheldon Shirley M.D. Metoprolol / Active Tablets ER 25mg 1 po qd Ramos Succinate 0000 Sheldon Shirley M.D. Vitamin D3 / Active Capsules 1000Unit 30cap 1 by mouth Other High Potency 0000 s every day Ordering Provider Aspir-81 00/ Active Tablets DR 81mg 1 by mouth Unknown 0000 every day Duloxetine / Active Caps DR Part 30mg 1 by mouth Unknown HCL 0000 bid Gabapentin / Active Capsules 100mg take 1 cap Unknown 0000 as needed Gabapentin / Active Capsules 300mg 1 by mouth Unknown 0000 at hs prn Humalog / Active Solution 100Unit/ML sliding Unknown Kwikpen 0000 Pen-Inject scale Lantus / Active Solution 100Unit/ML 15ml inject 30 Unknown Solostar 0000 Pen-Inject units once daily Omeprazole / Active Capsules DR 20mg 1 by mouth Unknown 0000 every day(pt not taking) Ondansetron / Active Tablets 4mg dissolve Unknown 0000 Dispers one tablet orally every 8 hours as needed for nausea. Quinapril HCL / Active Tablets 5mg 1 tablet Unknown 0000 daily by mouth Flonase / Active Suspension 50mcg/Act spray 1 Unknown Allergy 0000 spray in Relief each nostril twice daily Freestyle 10/26/ Hx Device 1unit use every 8 E10.8 [place] Omer/[place]/ 2018 - s hours with MD Krishna Mcintosh 02/21/ sensor Monitoring 2019 System Freestyle 10/26/ Hx Misc 3unit place E10.8 [place] Omer/Sensor/ 2017 - s device on MD Krishna Mcintosh 02/21/ skin every Monitoring 2018 10 days; System use with reader every 8 hours Simvastatin 08/13/ Hx Tablets 40mg 90tab 1 po qhs Ramos 03/30/ Fern, 2011 PavelDSierra Citracal + D 08/13/ Hx Tablets 800mg 1 po qd Ramos 03/29/ Fern, 2012 Sravanthi.DSierra Vit D 08/13/ Hx 800mg 1 po qd Ramos 2008Sierra Shirley M.D. Metoprolol 05/12/ Hx Tablets 25mg 60tab 1 po bid Ramos Tartrate 2008. 08/11/ Fern 2009 Jacqui Simvastatin 10/04/ Hx Tablets 40mg 90tab 1 PO QHS Ramos 2007 - s . user, 2007 M.D. Wellbutrin XL 10/05/ Hx Tablets ER 300mg 90tab Once qd Ramos 2006 - 24HR s . r, 2007 M.D. Aspirin 10/05/ Hx Chewtabs 81mg 1 PO qd Ramos 2006 - . , 2015 M.D. Vytorin 05/13/ Hx Tablets 10mg;40 mg 30tab 1 po qd Ramos 2005 - s . 10/04/ , 2007 M.D. Vytorin 04/01/ Hx Tablets 10mg;20 mg 30tab 1 po qd Ramos 2004 - s . she, 2005 M.D. Accupril 01/27/ Hx Tablets 5mg 30tab 1 po qd Ramos 2003 - s hold for . 02/06/ now 10/05/07 Fern, 2007 M.D. Zocor 01/27/ Hx Tablets 10mg 30tab one qhs Ramos 2003 - s . anderson, 2004 M.D. Wellbutrin SR 01/27/ Hx Tablets 150mg 60tab 1 po qd Ramos 2003 - s . , 2005 M.D. Aracelis 01/27/ Hx Tablets 30mg 30tab prn Ramos 2003 - s . , 2007 M.D. Toprol XL 01/27/ Hx Tablets 25mg 30tab 1 po qd Ramos 2003 - s . 05/12/ useshe, 2008 M.D. Lantus / Hx Injection 100Units/M 23 u every Unknown 0000 - L in the morning 2018 Novolog 00// Hx Solution 100Unit/ML 1 units per Unknown Flexpen 0000 - Pen-Inject 2 gm carb 04/01/ [facility] 2017 (sliding scale) Accupril / Hx Tablets 5mg 1 po qd Unknown 0000 - 2017 Wellbutrin XL / Hx Tablets ER 150mg 90tab 1 po qd Unknown 0000 - 24HR s 2017 Aspirin Ec 00/00/ Hx Tablets DR 81mg 90tab 1 by mouth Ramos 0000 - s every day F. 11/20/ Ben Shirley M.D. Humalog / Hx Solution 100Unit/ML sliding Unknown 0000 - scale 2017 Clonazepam / Hx Tablets 0.5mg 1 tablet up Unknown 0000 - to twice 11/22/ LOUISE zhang 2017 2 tablets Immunizations Description No Information Available Vital Signs Date Vital Result Comment 02/21/2018 10:49am Height 67 inches 5'7" Weight 165.00 lb Heart Rate 88 /min BP Systolic Sitting 116 mmHg Lue regular cuff BP Diastolic Sitting 64 mmHg Lue regular cuff Respiratory Rate 16 /min O2 % BldC Oximetry 98 % BMI (Body Mass Index) 25.8 kg/m2 Neck Circumference in inches 14.5 01/25/2018 10:59am Height 67 inches 5'7" Weight 173.00 lb w/ shoes Heart Rate 83 /min BP Systolic Sitting 120 mmHg BP Diastolic Sitting 71 mmHg BMI (Body Mass Index) 27.1 kg/m2 11/23/2017 2:31pm Height 67 inches 5'7" Weight 156.25 lb Heart Rate 94 /min BP Systolic 116 mmHg BP Diastolic 68 mmHg Respiratory Rate 18 /min Body Temperature 97.4 F O2 % BldC Oximetry 94 % BMI (Body Mass Index) 24.5 kg/m2 10/26/2017 9:41am Height 67 inches 5'7" Weight 165.00 lb w/ shoes Heart Rate 71 /min BP Systolic Sitting 119 mmHg BP Diastolic Sitting 60 mmHg BMI (Body Mass Index) 25.8 kg/m2 06/29/2017 12:44pm Height 67 inches 5'7" Weight 165.00 lb w/o shies Heart Rate 74 /min reg BP Systolic Sitting 124 mmHg Lue BP Diastolic Sitting 64 mmHg Lue Respiratory Rate 16 /min BMI (Body Mass Index) 25.8 kg/m2 Ejection Fraction 45-50% as of 07/13/16 echo 06/16/2016 1:23pm Height 67 inches 5'7" Weight 164.25 lb with shoes Heart Rate 74 /min BP Systolic Sitting 138 mmHg LA, regular BP Diastolic Sitting 60 mmHg LA, regular BMI (Body Mass Index) 25.7 kg/m2 Ejection Fraction 55% stress test 04/04/06 01/19/2016 10:11am Height 67 inches 5'7" Weight 152.00 lb Pain Level 0 BMI (Body Mass Index) 23.8 kg/m2 12/18/2015 10:27am Height 67 inches 5'7" Weight 152.00 lb Pain Level 0 BMI (Body Mass Index) 23.8 kg/m2 12/10/2015 12:18pm Height 67 inches 5'7" Weight 152.00 lb Heart Rate 83 /min BP Systolic 117 mmHg BP Diastolic 64 mmHg BMI (Body Mass Index) 23.8 kg/m2 05/29/2013 1:53pm Height 66 inches 5'6" Weight 147.00 lb Heart Rate 72 /min BP Systolic Sitting 110 mmHg BP Diastolic Sitting 54 mmHg BMI (Body Mass Index) 23.7 kg/m2 03/29/2012 11:06am Height 66 inches 5'6" Weight 148.00 lb Heart Rate 68 /min BP Systolic 116 mmHg BP Diastolic 62 mmHg BMI (Body Mass Index) 23.9 kg/m2 03/30/2011 11:33am Height 66 inches 5'6" Weight 144.00 lb Heart Rate 76 /min BP Systolic 150 mmHg BP Diastolic 68 mmHg Respiratory Rate 16 /min BMI (Body Mass Index) 23.2 kg/m2 05/28/2010 11:18am Height 66 inches 5'6" Weight 135.00 lb Heart Rate 65 /min BP Systolic Sitting 102 mmHg L BP Diastolic Sitting 70 mmHg L BMI (Body Mass Index) 21.8 kg/m2 08/11/2009 11:45am Weight 142.00 lb Heart Rate 72 /min BP Systolic 130 mmHg BP Diastolic 66 mmHg Respiratory Rate 16 /min 08/13/2008 11:31am Weight 150.00 lb Heart Rate 69 /min BP Systolic Sitting 130 mmHg BP Diastolic Sitting 50 mmHg Respiratory Rate 16 /min 02/07/2008 11:19am Height 67 inches 5'7" Weight 150.00 lb Heart Rate 60 /min BP Systolic Sitting 120 mmHg R BP Diastolic Sitting 70 mmHg R BMI (Body Mass Index) 23.5 kg/m2 10/05/2007 11:47am Height 67 inches 5'7" Weight 134.00 lb Heart Rate 66 /min BP Systolic Sitting 110 mmHg BP Diastolic Sitting 60 mmHg Respiratory Rate 16 /min BMI (Body Mass Index) 21.0 kg/m2 10/05/2006 3:05pm Height 67 inches 5'7" Weight 120.50 lb Heart Rate 72 /min BP Systolic Sitting 98 mmHg BP Diastolic Sitting 60 mmHg BP Systolic Standing 90 mmHg BP Diastolic Standing 60 mmHg BMI (Body Mass Index) 18.9 kg/m2 09/21/2005 3:36pm Height 67 inches 5'7" Weight 126.00 lb Heart Rate 66 /min BP Systolic Sitting 94 mmHg BP Diastolic Sitting 60 mmHg BP Systolic Standing 98 mmHg BP Diastolic Standing 62 mmHg BMI (Body Mass Index) 19.7 kg/m2 01/28/2004 10:42am Height 67 inches 5'7" Weight 126.00 lb Heart Rate 67 /min BP Systolic Sitting 108 mmHg left arm 110/60 BP Diastolic Sitting 60 mmHg left arm 110/60 BP Systolic Standing 92 mmHg BP Diastolic Standing 50 mmHg BMI (Body Mass Index) 19.7 kg/m2 Results Test Date Facility Test Result H/L Range Note Laboratory test finding 01/25/2018 [facility] Hemoglobin A1c 7.7 High 5 -7 Glucose Random 176 Laboratory test 10/26/2017 [facility] Glucose Random 237 finding Laboratory test 10/26/2017 [facility] Hemoglobin A1c 8.9 High 5-7 finding Comp Metabolic 10/26/2017 [facility] Sodium 138 mmol/L N 135- [address] [place] [address] [phone] Potassium 4.2 mmol/L N 3.5-5.0 Chloride 101 mmol/L N 101-111 Co2 Carbon Dioxide 28 mmol/L N 22-32 Anion Gap 9 mmol/L N 2-11 Glucose 257 mg/dL High 70-100 Blood Urea Nitrogen 15 mg/dL N 6-24 Creatinine 0.86 mg/dL N 0.51-0.95 BUN/Creatinine Ratio 17.4 N 8-20 Calcium 9.2 mg/dL N 8.6-10.3 Total Protein 6.5 g/dL N 6.4-8.9 Albumin 4.5 g/dL N 3.2-5.2 Globulin 2.0 g/dL N 2-4 Albumin/Globulin Ratio 2.3 N 1-3 Total Bilirubin 0.60 mg/dL N 0.2-1.0 Alkaline Phosphatase 75 U/L N 34-104 Alt 16 U/L N 7-52 Ast 19 U/L N 13-39 Egfr Non- 66.6 >60 Egfr 80.6 >60 1 Lipid Profile 10/26/2017 [facility] Triglycerides 85 mg/dL 2 (Trig/Chol/HDL) [address] [place] [address] [phone] Cholesterol 172 mg/dL 3 HDL Cholesterol 63.3 mg/dL 4 LDL Cholesterol 92 mg/dL 5 Urine Microalbumin 10/26/2017 [facility] Ur Microalbumin < 15.[address] (mg/L) [place] [address] [phone] Urine Creatinine 76.19 mg/dL Urine Microalbumin/Creatinine TNP <31 6 Laboratory test 10/26/2017 [facility] Hemoglobin A1c 9.1 % High 4.0-5.6 7 finding 101 (Glyco HGB) [place] [address] [phone] TSH (Thyroid Stim Horm) 1.76 mcIU/mL N 0.34-5.60 8 Urine Microalbumin 06/20/2016 [facility] Urine Creatinine 121.10 mg/dL N Random [address] [place] [address] [phone] Ur Microalbumin (mg/L) < 15.0 mg/L N Urine Microalbumin/Creatinine TNP ug/mg N <31 9 CBC No Diff 06/20/2016 [facility] White Blood 5.6 10^3/uL N 3.5-10.[address] [place] [address] [phone] Red Blood Count 3.87 10^6/uL Low 4.0-5.4 Hemoglobin 10.9 g/dL Low 12.0-16.0 Hematocrit 33 % Low 35-47 Mean Corpuscular Volume 86 fL N 80-97 Mean Corpuscular Hemoglobin 28 pg N 27-31 Mean Corpuscular HGB Conc 33 g/dL N 31-36 Red Cell Distribution Width 14 % N 10.5-15 Platelet Count 216 10^3/uL N 150-450 Mean Platelet Volume 9 um3 N 7.4-10.4 Comp Metabolic Panel 06/20/2016 [facility] Sodium 138 mmol/L N 133-[address] [place] [address] [phone] Potassium 4.9 mmol/L N 3.5-5.0 Chloride 104 mmol/L N 101-111 Co2 Carbon Dioxide 28 mmol/L N 22-32 Anion Gap 6 mmol/L N 2-11 Glucose 68 mg/dL Low 70-100 Blood Urea Nitrogen 27 mg/dL High 6-24 Creatinine 1.36 mg/dL High 0.51-0.95 BUN/Creatinine Ratio 19.9 N 8-20 Calcium 9.3 mg/dL N 8.6-10.3 Total Protein 6.4 g/dL N 6.4-8.9 Albumin 4.3 g/dL N 3.2-5.2 Globulin 2.1 g/dL N 2-4 Albumin/Globulin Ratio 2.0 N 1-3 Total Bilirubin 0.60 mg/dL N 0.2-1.0 Alkaline Phosphatase 52 U/L N 34-104 Alt 17 U/L N 7-52 Ast 18 U/L N 13-39 Egfr Non- 39.4 N >60 Egfr 50.7 N >60 10 Lipid Profile 06/20/2016 [facility] Triglycerides 84 mg/dL N 11 (Trig/Chol/HDL) [address] [place] [address] [phone] Cholesterol 155 mg/dL N 12 HDL Cholesterol 58.4 mg/dL N 13 LDL Cholesterol 80 mg/dL N 14 Liver Function 06/20/2016 [facility] Direct 0.10 mg/dL N 0.03- 0.[address] [place] [address] [phone] Indirect Bilirubin 0.5 mg/dL N 0.3-1.0 Laboratory test 06/20/2016 [facility] TSH (Thyroid 2.63 mcIU/mL N 0.34-5.[address] Stim Horm) [place] [address] [phone] CBC Auto Diff 06/20/2016 [facility] White Blood 5.6 10^3/uL N 3.5-10.[address] [place] [address] [phone] Red Blood Count 3.87 10^6/uL Low 4.0-5.4 Hemoglobin 10.9 g/dL Low 12.0-16.0 Hematocrit 33 % Low 35-47 Mean Corpuscular Volume 86 fL N 80-97 Mean Corpuscular Hemoglobin 28 pg N 27-31 Mean Corpuscular HGB Conc 33 g/dL N 31-36 Red Cell Distribution Width 14 % N 10.5-15 Platelet Count 216 10^3/uL N 150-450 Mean Platelet Volume 9 um3 N 7.4-10.4 Abs Neutrophils 3.3 10^3/uL N 1.5-7.7 Abs Lymphocytes 1.7 10^3/uL N 1.0-4.8 Abs Monocytes 0.4 10^3/uL N 0-0.8 Abs Eosinophils 0.2 10^3/uL N 0-0.6 Abs Basophils 0 10^3/uL N 0-0.2 Abs Nucleated RBC 0 10^3/uL N Granulocyte % 58.4 % N 38-83 Lymphocyte % 30.1 % N 25-47 Monocyte % 6.6 % N 1-9 Eosinophil % 4.0 % N 0-6 Basophil % 0.9 % N 0-2 Nucleated Red Blood Cells % 0 N Laboratory test 06/20/2016 [facility] Creatine 52 U/L N 10- [address] Kinase(CK) [place] [address] [phone] CBC No Diff 09/23/2014 [facility] White Blood 5.1 N 4.8-10.[address] Count 10^3/[place] [address] [phone] Red Blood Count 3.88 10^6/uL Low 4.0-5.4 Hemoglobin 11.2 g/dL Low 12.0-16.0 Hematocrit 34 % Low 35-47 Mean Corpuscular Volume 87 fL N 80-97 Mean Corpuscular Hemoglobin 29 pg N 27-31 Mean Corpuscular HGB Conc 33 g/dL N 31-36 Red Cell Distribution Width 14 % N 10.5-15 Platelet Count 203 10^3/uL N 150-450 Mean Platelet Volume 8 um3 N 7.4-10.4 Comp Metabolic Panel 09/23/2014 [facility] Sodium 136 mmol/L N 133-[address] [place] [address] [phone] Potassium 4.3 mmol/L N 3.5-5.0 Chloride 102 mmol/L N 101-111 Co2 Carbon Dioxide 29 mmol/L N 22-32 Anion Gap 5 mmol/L N 2-11 Glucose 223 mg/dL High 70-100 Blood Urea Nitrogen 14 mg/dL N 6-24 Creatinine 0.97 mg/dL High 0.51-0.95 BUN/Creatinine Ratio 14.4 N 8-20 Calcium 9.1 mg/dL N 8.6-10.3 Total Protein 6.2 g/dL Low 6.4-8.9 Albumin 4.3 g/dL N 3.2-5.2 Globulin 1.9 g/dL Low 2-4 Albumin/Globulin Ratio 2.3 N 1-3 Total Bilirubin 0.50 mg/dL N 0.2-1.0 Alkaline Phosphatase 46 U/L N 34-104 Alt 14 U/L N 7-52 Ast 13 U/L N 13-39 Egfr Non- 58.6 N >60 Egfr 75.3 N >60 16 Lipid Profile 09/23/2014 [facility] Triglycerides 75 mg/dL N 17 (Trig/Chol/HDL) [address] [place] [address] [phone] Cholesterol 152 mg/dL N 18 HDL Cholesterol 54.0 mg/dL N 19 LDL Cholesterol 83 mg/dL N 20 Liver Function 09/23/2014 [facility] Direct 0.10 mg/dL N 0.03- 0.[address] [place] [address] [phone] Indirect Bilirubin 0.4 mg/dL N 0.3-1.0 Iron & Iron Binding 09/23/2014 [facility] Iron 61 g/dL N 50- [address] [place] [address] [phone] Unsaturated Iron Binding 176 g/dL N Total Iron Binding Capacity 237 g/dL Low 250-450 % Iron Saturation 26 % N 15-55 Laboratory test 09/23/2014 [facility] TSH (Thyroid 1.38 ?IU/mL N 0.34-5.60 [address] Stim Horm) [place] [address] [phone] Ferritin 59.6 ng/mL N 11-307 22 Vitamin B12 457 pg/mL N 180-914 23 Urine Microalbumin 09/23/2014 [facility] Ur Microalbumin 28.0 mg /L N Random [address] (mg/L) [place] [address] [phone] Urine Creatinine 156.39 mg/dL N Urine Microalbumin/Creatinine 17.9 ug/mg N <31 Urine Microalbumin 03/29/2012 [facility] Ur Microalbumin 18.0 mg /L [address] (Mg/L) [place] [address] [phone] Urine Creatinine 141.8 mg/dL Urine Microalbumin/Creatinine 12.7 ug/mg Less Than 31 Comp Metabolic Panel 03/29/2012 [facility] Sodium 137 mmol/L 133-[address] [place] [address] [phone] Potassium 4.6 mmol/L 3.5-5.0 Chloride 102 mmol/L [...] Egfr Non- 57.1 >60 Egfr 73.5 >60 25 Lipid Profile 03/29/2012 [facility] Triglycerides 104 mg/dL 40-200 (Trig/Chol/HDL) [address] [place] [address] [phone] Cholesterol 173 mg/dL Less than 200 HDL Cholesterol 60 mg/dL 40-60 26 Cholesterol/HDL Ratio 2.9 Average 1-4.44 LDL Cholesterol 92.2 mg/dL Less Than 100 27 Liver Function 03/29/2012 [facility] Direct Bilirubin 0.1 mg/dL 0.1-0.[address] [place] [address] [phone] Indirect Bilirubin 0.5 mg/dL 0.3-1.0 Laboratory test 03/29/2012 [facility] TSH (Thyroid 1.42 0.34- 5.[address] Stimulating miu/[place] [address] Horm) [phone] Thyroid Peroxidase Antibodies 0.5 IU/mL Less Than 9.0 Laboratory test 03/29/2012 [facility] Adrenal 21 <1 U/mL <1 [address] [place] [address] [phone] Immunoglobulin A 95 mg/dL 61 - 356 29 Transglutaminase Igg 03/29/2012 [facility] Tissue <1.2 30 & Iga [address] Transglutaminase IgA U/[place] [address] Ab [phone] Tissue Transglutaminase IgG Ab <1.2 U/mL 31 Laboratory test 03/29/2012 [facility] Adrenal 21 <1 U/mL <1 [address] [address] [phone] Immunoglobulin A 95 mg/dL 61 - 356 33 Transglutaminase Igg 03/29/2012 [facility] Tissue <1.2 34 & Iga [address] Transglutaminase IgA U/[place] [address] Ab [phone] Tissue Transglutaminase IgG Ab <1.2 U/mL 35 Laboratory test 03/29/2012 [facility] Gliadin IgA <10.0 U [address] [place], [place] [address] [phone] Urine Microalbumin 12/14/2010 [facility] Microalbumin 26.0 mg/L Random [address] (MG/L) [place], [place] [address] [phone] Urine Creatinine 179.80 mg/dL Jose L Alb/Creatinine Ratio 14.4 UG/MG Less Than 30 37 Comp Metabolic Panel 12/14/2010 [facility] Sodium 137 mmol/L 135-[address] [place] [address] [phone] Potassium 4.7 mmol/L 3.5-5.0 Chloride 103 mmol/L 101-111 Co2 (Carbon Dioxide) 28.0 mmol/L 22-32 Anion Gap 6.0 mmol/L 2-11 38 Glucose 248 mg/dL High 70-100 BUN 14 mg/dL 6-24 Creatinine 0.8 mg/dL 0.50-1.40 One Over Creatinine 1.25 BUN/Creatinine Ratio 17.5 8-20 Calcium 9.5 mg/dL 8.1-9.9 Total Protein 6.3 GM/DL 6.2-8.1 Albumin 4.3 GM/DL 3.6-5.4 Globulin 2.0 GM/DL 2-4 Albumin/Globulin Ratio 2.2 1-3 Bilirubin Total 0.7 mg/dL 0.4-1.5 39 Alkaline Phosphatase 50 U/L 30-110 Alt (SGPT) 18 U/L 14-54 Ast (Sgot) 19 U/L 12-42 eGFR Non- 74.2 > 60 eGFR 95.4 > 60 40 Lipid Profile 12/14/2010 [facility] Triglyceride 85 mg/dL 40- 200 (Trig/Chol/HDL) [address] [place] [address] [phone] Cholesterol 158 mg/dL Less Than 200 41 High Density Lipoprotein 56 mg/dL 40-60 42 Cholesterol/HDL Ratio 2.82 AVERAGE 1-4.44 Low Density Lipoprotein 85 mg/dL Less Than 100 43 Liver Function 12/14/2010 [facility] Bilirubin Direct 0.1 mg/dL 0.1-0.5 Panel [address] [place] [address] [phone] Indirect Bilirubin 0.6 mg/dL 0.3-1.0 44 Laboratory test 12/14/2010 [facility] TSH 1.09 MIU/ML 0.34- 5.60 finding [address] [place] [address] [phone] Comp Metabolic 05/25/2010 [facility] Sodium 140 mmol/L 135- 145 45 Panel [address] [place] [address] [phone] Potassium 5.0 mmol/L 3.5-5.0 Chloride 106 mmol/L 101-111 Co2 (Carbon Dioxide) 29.0 mmol/L 22-32 Anion Gap 5.0 mmol/L 2-11 46 Glucose 94 mg/dL 70-100 BUN 19 mg/dL 6-24 Creatinine 1.10 mg/dL 0.50-1.40 One Over Creatinine 0.90 BUN/Creatinine Ratio 17.3 8-20 Calcium 9.3 mg/dL 8.1-9.9 Total Protein 6.5 GM/DL 6.2-8.1 Albumin 4.3 GM/DL 3.6-5.4 Globulin 2.2 GM/DL 2-4 Albumin/Globulin Ratio 2.0 1-3 Bilirubin Total 0.9 mg/dL 0.4-1.5 47 Alkaline Phosphatase 40 U/L 30-110 Alt (SGPT) 16 U/L 14-54 Ast (Sgot) 16 U/L 12-42 eGFR Non- 51.4 > 60 eGFR 66.1 > 60 48 Lipid Profile 05/25/2010 [facility] Triglyceride 57 mg/dL 40- 200 (Trig/Chol/HDL) [address] [place] [address] [phone] Cholesterol 163 mg/dL Less Than 200 49 High Density Lipoprotein 67 mg/dL High 40-60 50 Cholesterol/HDL Ratio 2.43 AVERAGE 1-4.44 Low Density Lipoprotein 85 mg/dL Less Than 100 51 Laboratory test 05/25/2010 [facility] Cortisol 13.1 g/dL [address] [place] [address] [phone] CBC With 08/19/2009 [facility] White Blood 4.2 CUMM Low 4.8-1 Electronic Diff [address] Count 0.8 [place] [address] [phone] Red Cell Count 3.73 CUMM Low 4.2-5.4 [...] Basophils 0.1 0-0.2 Comp Metabolic Panel 08/19/2009 [facility] Sodium 135 mmol/L 135-[address] [place] [address] [phone] Potassium 5.2 mmol/L High 3.5-5.0 Chloride 101 mmol/L 101-111 Co2 (Carbon Dioxide) 30.0 mmol/L 22-32 Anion Gap 4.0 mmol/L 2-11 53 Glucose 276 mg/dL High 70-100 54 BUN 21 mg/dL 6-24 Creatinine 1.10 mg/dL 0.50-1.40 One Over Creatinine 0.90 BUN/Creatinine Ratio 19.1 8-20 Calcium 9.0 mg/dL 8.1-9.9 55 Total Protein 6.1 GM/DL Low 6.2-8.1 Albumin 4.2 GM/DL 3.6-5.4 Globulin 1.9 GM/DL Low 2-4 Albumin/Globulin Ratio 2.2 1-3 Bilirubin Total 0.7 mg/dL 0.4-1.5 56 Alkaline Phosphatase 47 U/L 30-110 Alt (SGPT) 16 U/L 14-54 Ast (Sgot) 16 U/L 12-42 eGFR Non- 54.8 > 60 eGFR 66.3 > 60 57 Urine Microalbumin 08/19/2009 [facility] Microalbumin 10.0 mg/L Random [address] (MG/L) [place] [address] [phone] Urine Creatinine 153.38 mg/dL Jose L Alb/Creatinine Ratio 6.5 UG/MG Less Than 30 58 Laboratory test 08/19/2009 [facility] TSH 1.72 MIU/ML 0.34- 5.[address] [place] [address] [phone] Liver Function 08/19/2009 [facility] Bilirubin 0.1 mg/dL 0.1- 0.[address] [place] [address] [phone] Indirect Bilirubin 0.6 mg/dL 0.1-0.75 Lipid Profile 08/19/2009 [facility] Triglyceride 89 mg/dL 40- 200 (Trig/Chol/HDL) [address] [place] [address] [phone] Cholesterol 191 mg/dL Less Than 200 59 High Density Lipoprotein 51 mg/dL 40-60 60 Cholesterol/HDL Ratio 3.75 AVERAGE 1-4.44 Low Density Lipoprotein 122 mg/dL High Less Than 100 61 Laboratory test 11/20/2007 [facility] R[employer] (SEE NOTE) [address] [address] [phone] Rast Latex Hevea Braziliensi (SEE NOTE) 63 Nery 11/20/2007 [facility] Antinuclear AB NEGATIVE Negative [address] [place] [address] [phone] Reviewed By (SEE NOTE) 64 Laboratory test 11/20/2007 [facility] TSH 1.12 MIU/ML 0.34- 5.[address] [place] [address] [phone] Rheumatoid Factor < 20.0 IU/mL Less Than 20 Erythrocyte Sed Rate 17 MM/HR 0-30 1 Because ethnic data is not always readily [...] 15-29 5 Kidney failure <15 (or dialysis) 2 Desirable: <150 Borderline High: 150-199 High: 200-499 Very High: >500 3 Desirable: <200 Borderline High: 200-239 High: >239 4 Low: <40 Desirable: 40-60 High: >60 5 Desirable: <100 Near Optimal: 100-129 Borderline High: 130-159 High: 160-189 Very High: >189 6 Unable to calculate due to low microalbumin 7 Therapeutic target for the treatment of diabetes mellitus patients is <7% HBA1C, and in selective patients <6.0%. Please refer to [place] [employer] diabetic care guidelines for further information. 8 FASTING 9 Unable to calculate due to low microalbumin 10 Because ethnic data is not always readily [...] 15-29 5 Kidney failure <15 (or dialysis) 11 Desirable <150 Borderline high 150-199 High 200-499 Very High >500 12 Desirable <200 Borderline high 200-239 High >239 13 Low <40 Desirable: 40-60 High: >60 14 Desirable: <100 mg/dL Near Optimal: 100-129 mg/dL Borderline High: 130-159 mg/dL High: 160-189 mg/dL Very High: >189 mg/dL 15 PT IS FASTING 16 Because ethnic data is not always readily [...] 15-29 5 Kidney failure <15 (or dialysis) 17 Desirable <150 Borderline high 150-199 High 200-499 Very High >500 18 Desirable <200 Borderline high 200-239 High >239 19 Low <40 Desirable: 40-60 High: >60 20 Desirable: <100 mg/dL Near Optimal: 100-129 mg/dL Borderline High: 130-159 mg/dL High: 160-189 mg/dL Very High: >189 mg/dL 21 PT IS FASTING 22 PT IS FASTING 23 Normal Range 180 to 914 Indeterminate Range 145 to 180 Deficient Range <145 24 Microalbuminuria in a random sample is defined as: Microalbumin/Creatinine ratio of 30-299 ug/mg. 25 Because ethnic data is not always readily [...] 15-29 5 Kidney failure <15 (or dialysis) 26 HDL Interpretation: Undesirable: High Risk: Less than 40 MG/DL Desirable: Low Risk: Greater than 60 MG/DL 27 LDL Interpretation: Low Risk Optimal Level: LDL Less than 100 MG/DL Near or Above Optimal: LDL 100-129 MG/DL Borderline High Risk: LDL 130-159 MG/DL High Risk: LDL 160-189 MG/DL Very High Risk: LDL Greater than 189 MG/DL 28 For research use only. Test Performed by: [place] [address] Chief Medical Technologist: Félix Gonzales III, M.D. 29 Test Performed by: [place] [address] Chief Medical Technologist: Félix Gonzales III, M.D. 30 -- REFERENCE VALUE -- <4.0 (Negative) 31 -- REFERENCE VALUE -- <6.0 (Negative) Test Performed by: [place] [address] Chief Medical Technologist: Félix Gonzales III, M.D. 32 For research use only. Test Performed by: [place] [address] Chief Medical Technologist: Félix Gonzales III, M.D. 33 Test Performed by: [place] [address] Chief Medical Technologist: Félix Gonzales III, M.D. 34 -- REFERENCE VALUE -- <4.0 (Negative) 35 -- REFERENCE VALUE -- <6.0 (Negative) Test Performed by: [place] [address] Chief Medical Technologist: Félix Gonzales III, M.D. 36 -- REFERENCE VALUE -- <20.0 (Negative) Test Performed by: [place] [address] Chief Medical Technologist: Félix Gonzales III, M.D. 37 MICROALBUMINURIA IN A RANDOM SAMPLE IS DEFINED : MICROALBUMIN/CREATININE RATIO OF 30-299 ug/mg. . 38 Anion gap measurement may be of limited value in the presence of any alkalosis, especially in a combined acid base disorder. . 39 A metabolite of Naproxen, O-desmethylnaproxen, has been shown to interfere with the Jendrassik-Adeline method for measuring total bilirubin. Samples from [...] Risk: LDL Greater than 189 MG/DL 44 Please note updated reference range, effective 09/10/09 45 FASTING 46 Anion gap measurement may be of limited value in the presence of any alkalosis, especially in a combined acid base disorder. . 47 A metabolite of Naproxen, O-desmethylnaproxen, has been shown to interfere with the Jendrassik-Adeline method for measuring total bilirubin. Samples from patients who have taken Naproxen have shown spurious elevation in total bilirubin levels. 48 Because ethnic data is not always readily [...] 15-29 5 Kidney failure <15 (or dialysis) 49 CHOLESTEROL INTERPRETATION: Desirable: Less than 200 MG/DL Borderline-High Risk: 200-239 MG/DL High-Risk: 240 MG/DL and over 50 HDL INTERPRETATION: Undesirable: High Risk: Less than 40 MG/DL Desirable: Low Risk: Greater than 60 MG/DL 51 LDL INTERPRETATION: Low Risk Optimal Level: LDL Less than 100 MG/DL Near or Above Optimal: LDL 100-129 MG/DL Borderline High Risk: LDL 130-159 MG/DL High Risk: LDL 160-189 MG/DL Very High Risk: LDL Greater than 189 MG/DL 52 REFERENCE RANGE: AM 8.7-22.4 PM LESS THAN 10 . 53 Anion gap measurement may be of limited value in the presence of any alkalosis, especially in a combined acid base disorder. . 54 Note change in reference range as of 10/11/07. The change was based on recommendations from the [place] [employer]. 55 Please note change in reference range effective 07 . 56 A metabolite of Naproxen, O-desmethylnaproxen, has been shown to interfere with the Jendrassik-Lyerly method for measuring total bilirubin. Samples from patients who have taken Naproxen have shown spurious elevation in total bilirubin levels. 57 Because ethnic data is not always readily [...] 15-29 5 Kidney failure <15 (or dialysis) 58 MICROALBUMINURIA IN A RANDOM SAMPLE IS DEFINED : MICROALBUMIN/CREATININE RATIO OF 30-299 ug/mg. . 59 CHOLESTEROL INTERPRETATION: Desirable: Less than 200 MG/DL Borderline-High Risk: 200-239 MG/DL High-Risk: 240 MG/DL and over 60 HDL INTERPRETATION: Undesirable: High Risk: Less than 40 MG/DL Desirable: Low Risk: Greater than 60 MG/DL 61 LDL INTERPRETATION: Low Risk Optimal Level: LDL Less than 100 MG/DL Near or Above Optimal: LDL 100-129 MG/DL Borderline High Risk: LDL 130-159 MG/DL High Risk: LDL 160-189 MG/DL Very High Risk: LDL Greater than 189 MG/DL 62 TEST RESULT RETURNED FROM REFERENCE LABORATORY AND HARDCOPY SENT TO PHYSICIAN(S) OFFICE. 63 TEST RESULT RETURNED FROM REFERENCE LABORATORY AND HARDCOPY SENT TO PHYSICIAN(S) OFFICE. 64 REVIEWED BY RUTHANN RIVERA MD Procedures Date Code Description Status 11/30/2017 [id number] Mammogram Completed 07/05/2017 [id number] Colonoscopy Completed 07/05/2017 08631 Colonoscopy Flexible Diagnostic Completed 06/29/2017 57692 EKG Tracing & Interpretation Completed 05/02/2017 [id number] Colonoscopy Completed 01/18/2017 24299 EKG, Interpretation Only Completed 09/02/2016 27897 Treadmill Interp/Report Only Completed 09/02/2016 62291 Stress Test Supervsn W/Out I/R Completed 07/13/2016 12000 ECHO Transthoracic, Real-Time 2D With Doppler And Color Completed Flow 06/16/2016 47507 EKG Tracing & Interpretation Completed 05/29/2013 21635 EKG Tracing & Interpretation Completed 03/29/2012 73431 EKG Tracing & Interpretation Completed 01/04/2012 [id number] Colonoscopy Completed 07/26/2011 15118 Stress ECHO Interpretation/Report Hospital Completed 07/26/2011 40397 Treadmill Interp/Report Only Completed 07/26/2011 20378 Stress Test Supervsn W/Out I/R Completed 03/30/2011 59649 EKG Tracing & Interpretation Completed 05/28/2010 80899 EKG Tracing & Interpretation Completed 08/11/2009 42717 EKG Tracing & Interpretation Completed 11/03/2008 26086 Stress ECHO Interpretation/Report Hospital Completed 11/03/2008 15621 Treadmill Interp/Report Only Completed 11/03/2008 79137 Stress Test Supervsn W/Out I/R Completed 08/13/2008 59198 EKG Tracing & Interpretation Completed 10/05/2007 60509 EKG Tracing & Interpretation Completed 10/05/2006 03193 EKG Tracing & Interpretation Completed 04/04/2006 34865 Treadmill Interp/Report Only Completed 04/04/2006 38097 Stress Test Supervsn W/Out I/R Completed 04/04/2006 22058 Treadmill Interp/Report Only Completed 04/04/2006 89589 Stress ECHO Interpretation/Report Hospital Completed 11/28/2005 [id number] Colonoscopy Completed 09/21/2005 40458 EKG Tracing & Interpretation Completed 04/06/2004 18625 ECHO/Stress Completed 04/06/2004 24994 Treadmill Interp/Report Only Completed 04/06/2004 36447 Stress Test Supervsn W/Out I/R Completed 03/03/2004 68439 Color Doppler Completed 03/03/2004 19185 Pulse Doppler & Continuous Wave Completed 03/03/2004 36097 Echocardiogram Completed 01/28/2004 58145 EKG Tracing & Interpretation Completed Encounters Type Date Location Provider Dx Diagnosis Office Visit 01/25/2018 [facility] Cookie Mcintosh, E10.8 Type 1 diabetes 11:00a [facility] of [facility] MD mellitus with unspecified complications Office Visit 11/23/2017 [facility] Gastro[facility] Paola Craig, K59.00 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, 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 E86.0 Dehydration Office Visit 10/26/2017 [facility]ide Mcintosh, E10.8 Type 1 diabetes 10:00a Endocrinology of MD mellitus with [facility] unspecified complications E78.5 Hyperlipidemia, unspecified Office Visit 06/29/2017 1:00p [facility] Chung E10.8 Type 1 diabetes Cardiology Jacqui Shirley mellitus with unspecified complications E78.5 Hyperlipidemia, unspecified I25.10 Athscl heart disease of [place] coronary artery w/o ang pctrs I34.0 Nonrheumatic mitral (valve) insufficiency Office Visit 02/02/2017 [facility] Becky Le R11.2 Nausea with 7:55a Assoc,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 vomiting, Hospitalists unspecified I25.10 Athscl heart disease of [place] coronary artery w/o ang pctrs E10.8 Type 1 diabetes mellitus with unspecified complications I10 Essential (primary) hypertension Office Visit 12/19/2016 [facility] Parrish Vaz R73.9 Hyperglycemia, 1:27p Assoc,alice ROJAS M.D. unspecified Hospitalists I25.10 Athscl heart disease of [place] coronary artery w/o ang pctrs R53.81 Other malaise Office 06/16/2016 Ketty Chung E78.00 Pure Visit 2:00p Kayla Shirley M.D. hypercholesterolemia, unspecified E10.9 Type 1 diabetes mellitus without complications I25.2 Old myocardial infarction I25.10 Athscl heart disease of [place] coronary artery w/o ang pctrs Office Visit 01/19/2016 10:15a Orthopedic Khadar S92.511D Disp fx of Services Of Jacqui Blount prox phalanx C.M.A. of r less toe(s), 7thD Office Visit 12/18/2015 10:10a Orthopedic Khadar S92.511D Disp fx of Services Of Jac[facility] Bl[facility] prox phalanx C.M.A. of r less toe(s), 7thD S90.934A Unsp superficial injury of right lesser toe(s), init encntr Office Visit 12/10/2015 Orthopedic Khadar S90.934A Unsp superficial 11:45a Services Of Jacqui Blount injury of right C.M.A. lesser toe(s), init encntr Office Visit 05/29/2013 Ketty Chung 414.01 Coronary 2:00p Kayla Shirley M.D. Atherosclerosis [place] 272.0 Hypercholesterolemia Pure 250.01 Diabetes Mellitus W/O Compl Type I Juvenile Controlled 412 Myocardial Infarction Old Office Visit 03/29/2012 11:20a [facility] Kayla Chung 250.01 Cornelio Shirley M.D. Mellitus W/O Compl Type I Juvenile Controlled 414.01 Coronary Atherosclerosis [place] 272.0 Hypercholesterolemia Pure 412 Myocardial Infarction Old Office Visit 07/26/2011 Ketty Chung 414.01 Coronary 10:30a Kayla Shirley M.D. Atherosclerosis [place] 250.01 Diabetes Mellitus W/O Compl Type I Juvenile Controlled 272.0 Hypercholesterolemia Pure Office Visit 03/30/2011 11:20a [facility] Ramos Chung 412 [place] [facility] [place]qui Shirley Infarction Old 250.01 Diabetes Mellitus W/O Compl Type I Juvenile Controlled 424.0 Mitral Valve Disorder 414.01 Coronary Atherosclerosis [place] Office Visit 05/28/2010 11:20a [facility] Kayla Tamayo Myocardial Jacqui Shirley Infarction Old 250.01 Diabetes Mellitus W/O Compl Type I Juvenile Controlled 424.0 Mitral Valve Disorder 414.01 Coronary Atherosclerosis [place] Office Visit 08/11/2009 Ketty Chung 414.01 Coronary 11:00a Kayla Shirley M.D. Atherosclerosis [place] 412 Myocardial Infarction Old 250.01 Diabetes Mellitus W/O Compl Type I Juvenile Controlled 424.0 Mitral Valve Disorder Office Visit 08/13/2008 Ketty Chung 414.01 Coronary 11:00a Kayla Shirley M.D. Atherosclerosis [place] 250.01 Diabetes Mellitus W/O Compl Type I Juvenile Controlled 272.0 Hypercholesterolemia Pure 424.0 Mitral Valve Disorder Office Visit 02/07/2008 Ketty Chung 414.01 Coronary 11:00a Cardiology Jacqui Shirley Atherosclerosis [place] 250.01 Diabetes Mellitus W/O Compl Type I Juvenile Controlled 272.0 Hypercholesterolemia Pure Office Visit 10/05/2007 Ketty Chung 414.01 Coronary 11:20a Kayla Shirley M.D. Atherosclerosis [place] 250.01 Diabetes Mellitus W/O Compl Type I Juvenile Controlled 272.0 Hypercholesterolemia Pure 424.0 Mitral Valve Disorder Office Visit 10/05/2006 Ketty Chung 414.01 Coronary 2:20p Kayla Shirley M.D. Atherosclerosis [place] 250.01 Diabetes Mellitus W/O Compl Type I Juvenile Controlled 272.0 Hypercholesterolemia Pure 424.0 Mitral Valve Disorder Office Visit 09/21/2005 Ketty Chung 414.01 Coronary 3:00p Kayla Shirley M.D. Atherosclerosis [place] 412 Myocardial Infarction Old 250.01 Diabetes Mellitus W/O Compl Type I Juvenile Controlled 272.0 Hypercholesterolemia Pure Office Visit 01/28/2004 Rextresa Chung 414.01 Coronary 10:20a Kayla Shirley M.D. Atherosclerosis [place] 412 Myocardial Infarction Old 785.2 Murmur Cardiac Undiagnosed 250.01 Diabetes Mellitus W/O Compl Type I Juvenile Controlled Plan of Treatment Future Appointment(s):03/22/2018 9:15 am - Zoila Oneil DNP, RN, SE[facility] PICKER- at [facility]04/25/2018 11:00 am - Mauilk Mcintosh MD at [facility]03/29/2018 1:30 pm - Justine Taylor MD at [facility]02/21/2018 - Jaqueline Torres, MDR06.83 SnoringNew Orders:Home Sleep Testing, Ordered: 02/21/18Follow up:3 [id number] Other fatigue
--- NOTE | 2018-03-11 19:58 | ED ---
GI/ HPI - HPI Summary HPI Summary: Patient is a 62 y/o F presenting to ED with complaints N/V for the past three days. She also notes decreased appetite, states that she has only been taking sips of water. Patient has Hx of gastroparesis, notes that she had similar episode back in November. PMHx of diabetes, BG was 107. Fever, pain, and diarrhea are denied. 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 Home medications and allergies are reviewed. - History of Current Complaint Chief Complaint: EDDiabeticProb Time Seen by Provider: 03/11/18 19:45 Stated Complaint: HASNT EATEN IN 3 DAYS/DIABETIC ISSUES Hx Obtained From: Patient Onset/Duration: Started Days Ago - THREE, Still Present Timing: Constant, Lasting Days - THREE Current Severity: None Pain Intensity: 0 Associated Signs and Symptoms: Positive: Nausea, Vomiting, Change in Appetite. Negative: Diarrhea, Fever Aggravating Factor(s): Nothing Alleviating Factor(s): Nothing - Additional Pertinent History Primary Care Physician: [id number] - Allergy/Home Medications Allergies/Adverse Reactions: Allergies Allergy/AdvReac Type Severity Reaction Status Date / Time CALAMARI Allergy Swelling Uncoded 03/11/18 17:20 ENVIRONMENTAL/SEASONAL Allergy STUFFINESS Uncoded 03/11/18 17:20 HAYFEVER Home Medications: Home Medications Ondansetron ODT TAB* [Zofran 4 MG Odt TAB*] 4 mg PO Q6H PRN 03/11/18 [History Confirmed 03/11/18] PMH/Surg Hx/FS Hx/Imm Hx Endocrine/Hematology History: Reports: Hx Diabetes - Type 1, Other Endocrine/ Hematological Disorders - sclerodema Denies: Hx Anemia Cardiovascular History: Reports: Hx Angina - not recent, Hx Coronary Artery Disease, Hx Hypercholesterolemia, Hx Hypertension, Hx Myocardial Infarction - 2 times, Other Cardiovascular Problems/Disorders - bypass Denies: Hx Congestive Heart Failure, Hx Pacemaker/ICD, Hx Valvular Heart Disease Respiratory History: Denies: Hx Asthma GI History: Denies: Hx Jaundice History: Denies: Hx Renal Disease Musculoskeletal History: Reports: Hx Arthritis - GENERALIZED, Hx Back Problems, Other Musculoskeletal History - neurpathy Denies: Hx Osteoporosis Sensory History: Reports: Hx Contacts or Glasses - READING GLASSES, Other Sensory Impairments - dentures Denies: Hx Deafness, Hx Hearing Aid Opthamlomology History: Reports: Hx Contacts or Glasses - READING GLASSES, Other Sensory Impairments - dentures Neurological History: Reports: Other Neuro Impairments/Disorders - PAIN CLINIC PATIENT Psychiatric History: Reports: Hx Anxiety, Hx Depression, Other Psychiatric Issues/Disorders - claustrophobia Denies: Hx Panic Disorder - Cancer History Hx Chemotherapy: No Hx Radiation Therapy: No - Surgical History Surgery Procedure, Year, and Place: CARDIAC STENTS. CARDIAC BYPASS, [place]. 1984 APPENDECTOMY, [place]. BILATERAL BREAST CYST REMOVED, [place], [place]. AGE 3 THYROID CYST REMOVED, [place], [place]. CATARACTS. Lt TRIGGER FINGER. MOLE REMOVED FROM NECK - [place]. AGE 7, LEFT WRIST FRACTUE REPAIR, [place], [place]. 3x c-sections Hx Anesthesia Reactions: No Infectious Disease History: No Infectious Disease History: Denies: Hx Clostridium Difficile, Hx Hepatitis, Hx Human Immunodeficiency Virus (HIV), Hx of Known/Suspected MRSA, Hx Shingles, Hx Tuberculosis, History Other Infectious Disease, Traveled Outside the in Last 30 Days - Family History Known Family History: Positive: Cardiac Disease, Other - Cancer - Social History Alcohol Use: Rare Alcohol Amount: 3 / week Hx Substance Use: No Substance Use Type: Reports: None Hx Tobacco Use: Yes Smoking Status (MU): Former Smoker Type: Cigarettes Amount Used/How Often: less than a pack a day Length of Time of Smoking/Using Tobacco: 31 Have You Smoked in the Last Year: No Review of Systems Negative: Fever Positive: Vomiting, Nausea, Other - POSITIVE - DECREASED APPETITE . Negative: Diarrhea All Other Systems Reviewed And Are Negative: Yes Physical Exam - Summary Physical Exam Summary: VITAL SIGNS: Reviewed. GENERAL: Patient is a well-developed and nourished female who is lying comfortable in the stretcher. Patient is not in any acute respiratory distress. HEAD AND FACE: No signs of trauma. No ecchymosis, hematomas or skull depressions. No sinus tenderness. EYES: PERRLA, EOMI x 2, No injected conjunctiva, no nystagmus. EARS: Hearing grossly intact. Ear canals and tympanic membranes are within normal limits. MOUTH: Oropharynx within normal limits. NECK: Supple, trachea is midline, no adenopathy, no JVD, no carotid bruit, no c- spine tenderness, neck with full ROM. CHEST: Symmetric, no tenderness at palpation LUNGS: Clear to auscultation bilaterally. No wheezing or crackles. CVS: Regular rate and rhythm, S1 and S2 present, no murmurs or gallops appreciated. ABDOMEN: Soft, non-tender. No signs of distention. No rebound no guarding, and no masses palpated. Bowel sounds are normal. EXTREMITIES: FROM in all major joints, no edema, no cyanosis or clubbing. NEURO: Alert and oriented x 3. No acute neurological deficits. Speech is normal and follows commands. SKIN: Dry and warm Triage Information Reviewed: Yes Vital Signs On Initial Exam: Initial Vitals Temp Pulse Resp BP Pulse Ox 96.2 F 94 16 153/69 99 03/11/18 17:20 03/11/18 17:20 03/11/18 17:20 03/11/18 17:20 03/11/18 17:20 Vital Signs Reviewed: Yes Diagnostics - Vital Signs Vital Signs Temp Pulse Resp BP Pulse Ox 03/11/18 17:20 96.2 F 94 16 153/69 99 - Laboratory Result Diagrams: 03/11/18 19:24 03/11/18 19:24 Lab Statement: Any lab studies that have been ordered have been reviewed, and results considered in the medical decision making process. Re-Evaluation - Re-Evaluation First Eval Re-Evaluation Time: 21:51 Comment: Patient has not vomited in the ED, she will be discharged to home. GIGU Course/Dx - Course Course Of Treatment: Patient is a 62 y/o F presenting to ED with complaints N/V for the past three days. She also notes decreased appetite, states that she has only been taking sips of water. Patient has Hx of gastroparesis, notes that she had similar episode back in November. PMHx of diabetes, BG was 107. Fever, pain, and diarrhea are denied. Physical exam is normal. Bloodwork obtained. During ED course, patient was given Reglan, Protonix, and fluids. As she has not vomited in ED, she will be discharged to home. - Diagnoses Provider Diagnoses: Gastroparesis, Nausea & vomiting Discharge - Sign-Out/Discharge Documenting (check all that apply): Patient Departure - DISCHARGE - Discharge Plan Condition: Stable Disposition: HOME Prescriptions: Metoclopramide TAB* [Reglan TAB*] 10 mg PO Q6H PRN #20 tab PRN Reason: Nausea/Vomiting Pantoprazole TAB * [Protonix TAB (NF)] 40 mg PO DAILY #30 tab Patient Education Materials: Acute Nausea and Vomiting (ED), Gastroparesis (ED) Referrals: Augustina Kumar MD [Primary Care Provider] - 2 Days Additional Instructions: RETURN TO ED WITH ANY NEW OR WORSENING SYMPTOMS. FOLLOW UP WITH PRIMARY CARE PHYSICIAN WITHIN 2 DAYS. - Attestation Statements Document Initiated by Scribe: Yes Documenting Scribe: MARLON JONES Provider For Whom Hazel is Documenting (Include Credential): ISA HENSON MD Scribe Attestation: IMARLON, scribed for ISA HENSON MD on 03/11/18 at 2204. Status of Scribe Document: Ready
[2018-03-11 20:31] LABS: ABS Basophils 0.1 10^3/ul (0-0.2); ABS Eosinophils 0 10^3/ul (0-0.6); ABS Lymphocytes 1.4 10^3/ul (1.0-4.8); ABS Monocytes 0.4 10^3/ul (0-0.8); ABS Neutrophils 7.1 10^3/ul (1.5-7.7); ABS Nucleated RBC 0 10^3/ul; Eosinophil % 0.2 %; Hematocrit 35 % (35-47); Hemoglobin 11.8 g/dl (12.0-16.0); Mean Corpuscular HGB Conc 34 g/dl (31-36); Mean Corpuscular Hemoglobin 29 pg (27-31); Mean Corpuscular Volume 84 fL (80-97); Mean Platelet Volume 7.9 fL (7.4-10.4); Nucleated Red Blood Cells % 0; Platelet Count 299 10^3/ul (150-450); Red Blood Count 4.13 10^6/ul (4.00-5.40); Red Cell Distribution Width 14 % (10.5-15); White Blood Count 9.1 10^3/ul (3.5-10.8)
[2018-03-11 20:41] LABS: ALT 14 U/L (7-52); AST 14 U/L (13-39); Albumin 4.6 g/dL (3.2-5.2); Albumin/Globulin Ratio 1.5 (1-3); Alkaline Phosphatase 66 U/L (34-104); Amylase 29 U/L (29-103); Anion Gap 11 mmol/L (2-11); BUN/Creatinine Ratio 22.5 (8-20); Blood Urea Nitrogen 25 mg/dL (6-24); CO2 Carbon Dioxide 25 mmol/L (22-32); Calcium 10.1 mg/dL (8.6-10.3); Chloride 102 mmol/L (101-111); EGFR Non-African American 49.6 (>60); Globulin 3.1 g/dL (2-4); Glucose 114 mg/dL (70-100); Potassium 4.2 mmol/L (3.5-5.0); Sodium 138 mmol/L (135-145); Total Protein 7.7 g/dL (6.4-8.9)
[2018-03-11 21:37] VITALS: BP 136/90
== END | disposition home or self-care (01) ==
LOC: ED 17:17
DX: K31.84 Gastroparesis (principal); R11.2 Nausea with vomiting, unspecified; Z87.891 Personal history of nicotine dependence
CPT/HCPCS: 36415; 80053; 82150; 83605; 83690; 85025; 96374; 96375; 99283; J2765

== ENCOUNTER 2018-09-18 11:32 | Emergency (ER) | payer OTHER ==
--- NOTE | 2018-09-18 14:26 | ED ---
Abdominal Pain/Female - HPI Summary HPI Summary: Pt. is a 63 y.o female who presents to the ER for RUQ pain and vomiting x 3 days. Pt. states she has a hx of gallbladder stones and believes this is the cause of her RUQ. Pt. is a type one DM and states she has not been able to eat or drink the last 3 days secondary to nausea and vomiting. Denies fever, CP, SOB , diarrhea, urinary sxs. Sxs are moderate in severity. No current modifying factors. - History of Current Complaint Chief Complaint: EDNauseaVomitDiarrh Stated Complaint: GALL BLADDER ATTACK PER PT Time Seen by Provider: 09/18/18 14:25 Hx Obtained From: Patient Pain Intensity: 10 Allergies/Adverse Reactions: Allergies Allergy/AdvReac Type Severity Reaction Status Date / Time shellfish derived Allergy Swelling Verified 09/18/18 14:26 Of Face,Lips,& Throat ENVIRONMENTAL/SEASONAL Allergy STUFFINESS Uncoded 09/18/18 14:26 HAYFEVER PMH/Surg Hx/FS Hx/Imm Hx Previously Healthy: Yes Endocrine/Hematology History: Reports: Hx Diabetes - Type 1, Other Endocrine/ Hematological Disorders - sclerodema Denies: Hx Anemia Cardiovascular History: Reports: Hx Angina - not recent, Hx Coronary Artery Disease, Hx Hypercholesterolemia, Hx Hypertension, Hx Myocardial Infarction - 2 times, Other Cardiovascular Problems/Disorders - bypass Denies: Hx Congestive Heart Failure, Hx Pacemaker/ICD, Hx Valvular Heart Disease Respiratory History: Denies: Hx Asthma GI History: Denies: Hx Jaundice History: Denies: Hx Renal Disease Musculoskeletal History: Reports: Hx Arthritis - GENERALIZED, Hx Back Problems, Other Musculoskeletal History - neurpathy Denies: Hx Osteoporosis Sensory History: Reports: Hx Contacts or Glasses - READING GLASSES, Other Sensory Impairments - dentures Denies: Hx Deafness, Hx Hearing Aid Opthamlomology History: Reports: Hx Contacts or Glasses - READING GLASSES, Other Sensory Impairments - dentures Neurological History: Reports: Other Neuro Impairments/Disorders - PAIN CLINIC PATIENT Psychiatric History: Reports: Hx Anxiety, Hx Depression, Other Psychiatric Issues/Disorders - claustrophobia Denies: Hx Panic Disorder - Cancer History Hx Chemotherapy: No Hx Radiation Therapy: No - Surgical History Surgery Procedure, Year, and Place: CARDIAC STENTS. CARDIAC BYPASS, [place]. 1984 APPEN[place]CTOMY, [place]. BILATERAL BREAST CYST REMOVED, [place], [place]. AGE 3 THYROID CYST REMOVED, [place], [place]. CATARACTS. Lt TRIGGER FINGER. MOLE REMOVED FROM NECK - [place]. AGE 7, LEFT WRIST FRACTUE REPAIR, [place], [place]. 3x c-sections Hx Anesthesia Reactions: No - Immunization History Immunizations Up to Date: Yes Infectious Disease History: No Infectious Disease History: Denies: Hx Clostridium Difficile, Hx Hepatitis, Hx Human Immunodeficiency Virus (HIV), Hx of Known/Suspected MRSA, Hx Shingles, Hx Tuberculosis, History Other Infectious Disease, Traveled Outside the in Last 30 Days - Family History Known Family History: Positive: Cardiac Disease, Other - Cancer - Social History Alcohol Use: Weekly Alcohol Amount: ~5 drinks/week Hx Substance Use: No Substance Use Type: Reports: None Hx Tobacco Use: Yes Smoking Status (MU): Former Smoker Type: Cigarettes Amount Used/How Often: less than a pack a day Length of Time of Smoking/Using Tobacco: 31 Have You Smoked in the Last Year: No Review of Systems Constitutional: Negative Negative: Fever, Chills Cardiovascular: Negative Negative: Chest Pain Respiratory: Negative Negative: Shortness Of Breath Positive: Abdominal Pain, Vomiting, Nausea. Negative: Diarrhea Genitourinary: Negative Neurological: Negative All Other Systems Reviewed And Are Negative: Yes Physical Exam Triage Information Reviewed: Yes Vital Signs On Initial Exam: Initial Vitals Temp Pulse Resp BP Pulse Ox 97.2 F 105 16 129/74 100 09/18/18 11:37 09/18/18 11:37 09/18/18 11:37 09/18/18 11:37 09/18/18 11:37 Vital Signs Reviewed: Yes Appearance: Positive: Well-Appearing - Pt. lying in bed in NAD. Appears uncomfortable but nontoxic. present. Skin: Positive: Warm, Dry Head/Face: Positive: Normal Head/Face Inspection Eyes: Positive: Normal, EOMI Neck: Positive: Supple Respiratory/Lung Sounds: Positive: Clear to Auscultation, Breath Sounds Present Cardiovascular: Positive: Normal, RRR Abdomen Description: Positive: Other: - Abd. is soft with mild tenderness to RUQ without guarding. Neurological: Positive: Normal, CN Intact II-III Psychiatric: Positive: Affect/Mood Appropriate Diagnostics - Vital Signs Vital Signs Temp Pulse Resp BP Pulse Ox 09/18/18 14:17 83 20 147/65 100 09/18/18 14:14 83 100 09/18/18 13:31 97.1 F 97 16 120/87 100 09/18/18 11:37 97.2 F 105 16 129/74 100 - Laboratory Result Diagrams: 09/18/18 14:14 09/18/18 14:14 Lab Statement: Any lab studies that have been ordered have been reviewed, and results considered in the medical decision making process. Abdominal Pain Fem Course/Dx - Course Course Of Treatment: ECG done at 1429 shows a sinus rhythm of 81 bpm, normal axis, no ST elevation or depression. Discharge - Discharge Plan Condition: Improved Disposition: HOME Referrals: Faisal Horton MD [Medical Doctor] - Augustina Kumar MD [Primary Care Provider] - Additional Instructions: Follow up with Dr. Horton as scheduled for further evaluation Resume your regular home medications today Take your zofran as directed for vomiting Increase fluids Return to ER for fever, increased pain, uncontrollable vomiting, or if concerned - Billing Disposition and Condition Condition: IMPROVED Disposition: Home
[2018-09-18 14:30] LABS: ABS Basophils 0.1 10^3/ul (0-0.2); ABS Eosinophils 0.1 10^3/ul (0-0.6); ABS Lymphocytes 1.6 10^3/ul (1.0-4.8); ABS Monocytes 0.5 10^3/ul (0-0.8); Eosinophil % 0.6 %; Hematocrit 35 % (35-47); Hemoglobin 12.2 g/dL (12.0-16.0); Lymphocyte % 16.9 %; Mean Corpuscular HGB Conc 35 g/dL (31-36); Mean Corpuscular Hemoglobin 29 pg (27-31); Mean Corpuscular Volume 83 fL (80-97); Mean Platelet Volume 8.5 fL (7.4-10.4); Nucleated Red Blood Cells % 0.1; Platelet Count 318 10^3/uL (150-450); Red Blood Count 4.19 10^6 /uL (3.70-4.87); Red Cell Distribution Width 14 % (10-15); White Blood Count 9.2 10^3/uL (3.5-10.8)
[2018-09-18] MEDS ORDERED: Gabapentin CAP(*) 100 MG PO ONE (14:35)
[2018-09-18] MEDS ORDERED: Ondansetron INJ* 2 MG/ML VIAL IV ONE (14:35)
[2018-09-18] MEDS ORDERED: NS 0.9% 1000 ML** 1,000 ML IV ONE (14:35)
[2018-09-18 14:49] LABS: ALT 14 U/L (7-52); AST 13 U/L (13-39); Albumin 4.5 g/dL (3.2-5.2); Albumin/Globulin Ratio 1.6 (1-3); Alkaline Phosphatase 78 U/L (34-104); Anion Gap 14 mmol/L (2-11); BUN/Creatinine Ratio 19.6 (8-20); Blood Urea Nitrogen 22 mg/dL (6-24); CO2 Carbon Dioxide 21 mmol/L (22-32); Calcium 10.2 mg/dL (8.6-10.3); Chloride 101 mmol/L (101-111); EGFR African American 59.3 (>60); Globulin 2.9 g/dL (2-4); Glucose 256 mg/dL (70-100); Potassium 4.2 mmol/L (3.5-5.0); Sodium 136 mmol/L (135-145); Total Protein 7.4 g/dL (6.4-8.9)
[2018-09-18 17:22] VITALS: BP 136/70
== END 2018-09-18 17:21 | disposition home or self-care (01) ==
LOC: ED 11:32
DX: R10.11 Right upper quadrant pain (principal); K82.4 Cholesterolosis of gallbladder; R11.2 Nausea with vomiting, unspecified; E10.9 Type 1 diabetes mellitus without complications; I10 Essential (primary) hypertension; I25.2 Old myocardial infarction; Z95.1 Presence of aortocoronary bypass graft; Z95.5 Presence of coronary angioplasty implant and graft; Z90.89 Acquired absence of other organs; Z87.891 Personal history of nicotine dependence
CPT/HCPCS: 36415; 76705; 80053; 83605; 83690; 85025; 86140; 93005; 96361; 96374; 99283; A9270-GY; J2405

== ENCOUNTER 2020-12-16 10:41 | Observation (INO) ==
[~2020-12-16 10:41] MED LIST changes: +Buffered Lidocaine 1% SYRIN 1 ml INTRADERM ONE; +Dexamethasone IV 4 MG/ML VIAL 1 ml VIAL ONE; +Lactated Ringers 1000 ml BAG 1,000 ML IV SCH; +Lidocaine 2% PF 5 ML VIAL ONE; -Metoclopramide IV* 5 MG/ML 2 ML VIAL IV SLOW PU ONE; +Midazolam 2 mg/2 ml VIAL 1 mg/ml 2 ml VIAL (2 mg) ONE; -NS 0.9% 1000 ML* 1,000 ML IV ONE; -Pantoprazole IV* 40 MG IV ONE; +Phenylephrine IV 10 MG/ML 1 ml VIAL ONE; +Propofol 10 MG/ML 20 ML BTL ONE; +ceFAZolin 2 GM in NS PREMIX 2 GM/100 ML BAG IVPB ONE; +fentaNYL 100 mcg/2 ml 50 MCG/ML VIAL ONE
[2020-12-16] MEDS ORDERED: Sugammadex 500 MG/5 ML 5 ml VIAL IV PUSH ONE (10:49)
[2020-12-16] MEDS ORDERED: ceFAZolin VIAL VIAL ONE (11:54)
[2020-12-16] MEDS ORDERED: Bupivacaine 0.25% SDV 30 ML ONE (11:54)
[2020-12-16] MEDS ORDERED: Rocuronium 50 mg VIAL 10 mg/ml 5 ml VIAL (50 mg) ONE (11:56)
[2020-12-16] MEDS ORDERED: Remifentanil 2 MG VIAL ONE (13:11)
[2020-12-16] MEDS ORDERED: EPHEDrine (Pressors) 50 MG/ML VIAL ONE (14:58)
[2020-12-16] MEDS ORDERED: Dexamethasone IV 4 MG/ML VIAL 1 ml VIAL ONE (16:02)
[2020-12-16] MEDS ORDERED: Ondansetron 4 mg VIAL 2 MG/ML 2 ml VIAL IV PRN (16:51)
[2020-12-16] MEDS ORDERED: HYDROcodone/ACETAMIN 5/325 mg TAB PO PRN ×2 (16:51)
[2020-12-16] MEDS ORDERED: Fluticasone NASAL SPRAY 50MCG 16 gm SPRAY BTL BOTH NARES PRN (17:56)
[2020-12-16] MEDS ORDERED: Polyethylene Glycol 3350 17 GM PACKET PO PRN (18:04)
[2020-12-17] MEDS ORDERED: DULoxetine DR 60 mg CAP PO SCH (09:00)
[2020-12-17] MEDS ORDERED: Aspirin EC 81 mg TAB.EC (enteric coated) PO SCH (09:00)
[2020-12-17] MEDS ORDERED: Cholecalciferol (VIT D3) 1,000 unit TAB PO SCH (09:00)
[2020-12-17 11:52] VITALS: BP 124/64
== END 2020-12-17 14:40 | disposition home or self-care (01) ==
LOC: SSU 10:41 → OR 10:41
PROVIDERS: ADMIT Neurological Surgery; ATTEND Neurological Surgery